=== PATIENT | female | born 1955 | race Caucasian/White ===

== ENCOUNTER 2017-06-06 08:57 | Day surgery (SDC) | payer OTHER ==
[~2017-06-06] VITALS: Ht 167.6 cm; Wt 108.6 kg
[~2017-06-06 08:57] MED LIST: /LOR25TA PO; /QUET10TA PO; ATIV0.5T3 PO; AZIT500T2 PO; BUPR1TAB53 PO; BUSP10TA78 PO; CARD300C4 PO; CITA10TA2 PO; CLON0.2T PO; CRES5TAB PO; DESIOIN3 TOP; DIPH50CA PO; DIPHCR TOP; FURO40TA2 PO; IBUP200T2 PO; LASI20TA PO; LEVO250T PO; LIDOCAINE 2% INJ 100 MG/5 ML SDV (FOR ANES.) As Ordered ONE; LISI2.5T3 PO; LISINOPRIL/HCTZ PO; LIVA2TAB PO; METF-415 PO; METF-700 PO; METF500T PO; MOBI15TA PO; MOME0.1C3; PANT40TA2 PO; PRED10TA PO; PROPOFOL 200 MG/20 ML VIAL As Ordered ONE; TOUJ1.2I SC; TRIAMCINOLONE TOP; TRUL10IN SC; VALT1TAB PO; VENL75TA2 PO; VENTAER INH
[2017-06-06] MEDS ORDERED: NS 1,000 ML IV SCH (10:00)
--- NOTE | 2017-06-06 10:34 | ROOR ---
Patient Name: Vika Aranda Procedure Date: 06/06/2017 10:00 AM Date of : 1955 Age: 61 Room: [facility] Gender: Female Note Status: Finalized Procedure: Colonoscopy Indications: High risk colon cancer surveillance: Personal history of colonic polyps, Last colonoscopy: April 2014 Providers: Serjio MORRISON MD Referring MD: KALIN ZULUAGA Requesting Provider: Medicines: Monitored Anesthesia Care Complications: No immediate complications. Procedure: Pre-Anesthesia Assessment: - The heart rate, respiratory rate, oxygen saturations, blood pressure, adequacy of pulmonary ventilation, and response to care were monitored throughout the procedure. The Colonoscope was introduced through the anus and advanced to the cecum, identified by appendiceal orifice and ileocecal valve. The colonoscopy was performed with difficulty due to inadequate bowel prep. Successful completion of the procedure was aided by changing the patient to a supine position and lavage. The patient tolerated the procedure well. Findings: The perianal and digital rectal examinations were normal. (Colon Prep was POOR, Inadequate Visualisation) Multiple medium-mouthed diverticula were found in the sigmoid colon. Impression: - (Colon Prep was POOR, Inadequate Visualisation) - Moderate diverticulosis in the sigmoid colon. - No specimens collected. Recommendation: - Repeat colonoscopy at the next available appointment because the bowel preparation was poor. - My office will call you to reschedule the procedure. Serjio Morrison MD Serjio MORRISON MD 06/06/2017 10:34:05 AM This report has been signed electronically. Number of Addenda: 0 Note Initiated On: 06/06/2017 10:00 AM Estimated Blood Loss: Estimated blood loss: none.
[2017-06-06 10:51] VITALS: BP 98/58
== END 2017-06-06 11:05 | disposition home or self-care (01) ==
LOC: M OPP 08:57 → EDSTATUS 09:55 → M OPP 11:05
PROVIDERS: ATTEND Internal Medicine Gastroenterology
DX: Z12.11 Encounter for screening for malignant neoplasm of colon (principal); Z86.010 Personal history of colon polyps; K57.30 Diverticulosis of large intestine without perforation or abscess without bleeding; I10 Essential (primary) hypertension; E78.5 Hyperlipidemia, unspecified; E11.9 Type 2 diabetes mellitus without complications; R12 Heartburn; M19.90 Unspecified osteoarthritis, unspecified site; M51.9 Unspecified thoracic, thoracolumbar and lumbosacral intervertebral disc disorder; E07.9 Disorder of thyroid, unspecified; L40.9 Psoriasis, unspecified; F32.9 Major depressive disorder, single episode, unspecified; F41.9 Anxiety disorder, unspecified; G43.909 Migraine, unspecified, not intractable, without status migrainosus; G62.9 Polyneuropathy, unspecified; G47.30 Sleep apnea, unspecified; Z88.8 Allergy status to other drugs, medicaments and biological substances; Z88.5 Allergy status to narcotic agent; Z79.899 Other long term (current) drug therapy; Z80.7 Family history of other malignant neoplasms of lymphoid, hematopoietic and related tissues

== ENCOUNTER 2017-09-16 07:00 | Day surgery (SDC) | payer OTHER ==
[2017-09-16] MEDS: NS 1,000 ML IV (07:44)
[2017-09-16] MEDS ORDERED: DEXTROSE 50% 50 ML SYRINGE As Ordered (10:14)
[2017-09-16] MEDS ORDERED: PROPOFOL 200 MG/20 ML VIAL As Ordered (10:50)
[2017-09-16] MEDS ORDERED: LIDOCAINE 2% INJ 100 MG/5 ML SDV (FOR ANES.) As Ordered (10:50)
[2017-09-16] MEDS ORDERED: DEXTROSE IV (11:31)
== END 2017-09-16 11:41 | disposition home or self-care (01) ==
LOC: M OPP 07:00
DX: Z12.11 Encounter for screening for malignant neoplasm of colon (principal); Z86.010 Personal history of colon polyps; I10 Essential (primary) hypertension; E78.5 Hyperlipidemia, unspecified; E11.9 Type 2 diabetes mellitus without complications; E04.1 Nontoxic single thyroid nodule; Z86.718 Personal history of other venous thrombosis and embolism; R06.02 Shortness of breath; M19.90 Unspecified osteoarthritis, unspecified site; M51.9 Unspecified thoracic, thoracolumbar and lumbosacral intervertebral disc disorder; L40.9 Psoriasis, unspecified; Z78.0 Asymptomatic menopausal state; G47.30 Sleep apnea, unspecified; Z87.442 Personal history of urinary calculi; Z87.891 Personal history of nicotine dependence; Z88.8 Allergy status to other drugs, medicaments and biological substances; Z88.5 Allergy status to narcotic agent; Z79.899 Other long term (current) drug therapy; Z80.7 Family history of other malignant neoplasms of lymphoid, hematopoietic and related tissues
CPT/HCPCS: 45378

== ENCOUNTER 2017-10-03 08:39 | Day surgery (SDC) | payer OTHER ==
[~2017-10-03 08:39] MED LIST changes: -/LOR25TA PO; -/QUET10TA PO; -ATIV0.5T3 PO; -AZIT500T2 PO; -BUPR1TAB53 PO; -BUSP10TA78 PO; -CARD300C4 PO; -CITA10TA2 PO; -CLON0.2T PO; -CRES5TAB PO; -DESIOIN3 TOP; -DIPH50CA PO; -DIPHCR TOP; -FURO40TA2 PO; -IBUP200T2 PO; -LASI20TA PO; -LEVO250T PO; -LIDOCAINE 2% INJ 100 MG/5 ML SDV (FOR ANES.) As Ordered ONE; -LISI2.5T3 PO; -LISINOPRIL/HCTZ PO; -LIVA2TAB PO; -METF-415 PO; -METF-700 PO; -METF500T PO; -MOBI15TA PO; -MOME0.1C3; -PANT40TA2 PO; -PRED10TA PO; +PROPOFOL 200 MG/20 ML VIAL As Ordered; -PROPOFOL 200 MG/20 ML VIAL As Ordered ONE; -TOUJ1.2I SC; -TRIAMCINOLONE TOP; -TRUL10IN SC; -VALT1TAB PO; -VENL75TA2 PO; -VENTAER INH
[2017-10-03] MEDS: NS 1,000 ML IV (09:00)
[2017-10-03] MEDS ORDERED: LIDOCAINE 2% INJ 100 MG/5 ML SDV (FOR ANES.) As Ordered (10:01)
== END 2017-10-03 10:39 | disposition home or self-care (01) ==
LOC: M OPP 08:39
DX: Z12.11 Encounter for screening for malignant neoplasm of colon (principal); Z86.010 Personal history of colon polyps; D12.5 Benign neoplasm of sigmoid colon; D12.3 Benign neoplasm of transverse colon; K57.30 Diverticulosis of large intestine without perforation or abscess without bleeding; K64.8 Other hemorrhoids; I10 Essential (primary) hypertension; E78.5 Hyperlipidemia, unspecified; E11.9 Type 2 diabetes mellitus without complications; E04.1 Nontoxic single thyroid nodule; K44.9 Diaphragmatic hernia without obstruction or gangrene; R12 Heartburn; K21.9 Gastro-esophageal reflux disease without esophagitis; Z86.718 Personal history of other venous thrombosis and embolism; R06.02 Shortness of breath; Z86.19 Personal history of other infectious and parasitic diseases; M19.90 Unspecified osteoarthritis, unspecified site; M51.9 Unspecified thoracic, thoracolumbar and lumbosacral intervertebral disc disorder; L40.9 Psoriasis, unspecified; F41.9 Anxiety disorder, unspecified; F32.9 Major depressive disorder, single episode, unspecified; G43.909 Migraine, unspecified, not intractable, without status migrainosus; G62.9 Polyneuropathy, unspecified; Z86.69 Personal history of other diseases of the nervous system and sense organs; Z78.0 Asymptomatic menopausal state; G47.30 Sleep apnea, unspecified; Z87.442 Personal history of urinary calculi; E66.9 Obesity, unspecified; Z87.891 Personal history of nicotine dependence; Z88.8 Allergy status to other drugs, medicaments and biological substances; Z88.5 Allergy status to narcotic agent; Z79.899 Other long term (current) drug therapy; Z79.4 Long term (current) use of insulin; Z80.7 Family history of other malignant neoplasms of lymphoid, hematopoietic and related tissues
CPT/HCPCS: 45385

== ENCOUNTER → 2019-02-26 | Outpatient (CLI) | payer OTHER ==
[~2019-02-26] MED LIST changes: +/LOR25TA PO; +ADME100I SC; +ASPI81TAEC PO; +ATIV0.5T3 PO; +AZIT500T2 PO; +BUPR150T3 PO; +BUPR1TAB53 PO; +BUSP10TA78 PO; +CARD300C4 PO; +CITA10TA2 PO; +CLON0.2T PO; +CRES5TAB PO; +DESIOIN3 TOP; +DIPH25CA PO; +DIPH50CA PO; +DIPHCR TOP; +FLAG500T PO; +FURO40TA2 PO; +HYDR-3716 PO; +IBUP200T2 PO; +LASI20TA3 PO; +LEVO250T PO; +LISI-1046 PO; +LISI10TA4 PO; +LISINOPRIL/HCTZ PO; +LIVA2TAB PO; +LORA0.5T11 PO; +METF-415 PO; +METF-700 PO; +METF500T PO; +MOBI15TA PO; +MOME0.1C3; +PANT20TA2 PO; +PANT40TA3 PO; +PRED-351 PO; -PROPOFOL 200 MG/20 ML VIAL As Ordered; +SERO1TAB PO; +TOUJ1.2I SC; +TRIAMCINOLONE TOP; +TRUL10IN SC; +VALT1TAB PO; +VANC1CAP6 PO; +VENL75CA47 PO; +VENL75TA2 PO; +VENTAER INH; +VICT18IN SC; +VITA50005 PO
--- NOTE | 2019-02-27 07:24 | REP ---
Sacrum and coccyx series: Four views. History: Low back pain. Comparison views are from March 29, 2013. Findings: The SI joints and symphysis pubis are unremarkable. Sacrum is intact. There is no evidence of coccygeal deformity or displacement compared to the prior study. Presacral and retro sacral soft tissues are unremarkable. Impression: Negative views of the sacrum and coccyx. Electronically Signed by Tim Verdin MD 02/27/2019 11:58 A
== END ==
LOC: M RAD 15:31
PROVIDERS: ATTEND Physician Assistant
DX: M54.5 Low back pain (principal)

== ENCOUNTER → 2021-02-03 | Outpatient (CLI) | payer MEDICARE, OTHER ==
[~2021-02-03] MED LIST changes: +ASPI-569 PO; -ASPI81TAEC PO; -AZIT500T2 PO; +AZIT500T5 PO; +BASA100I SC; +BUPR150T12 PO; -BUPR150T3 PO; -DIPH25CA PO; +DIPH25CA32 PO; +FISH1000 PO; -LISI-1046 PO; +LISI10TA22 PO; -LISI10TA4 PO; +LISI2.5T2 PO; -LORA0.5T11 PO; +LORA0.5T5 PO; -METF-700 PO; +METF-818 PO; +MULT-90 PO; +OCUV1CHW PO; -PANT20TA2 PO; +PANT20TA6 PO; +PANT40TA29 PO; -PANT40TA3 PO; +TRUL10IN
== END ==
LOC: M LABSMTC 10:29
PROVIDERS: ATTEND Anesthesiology
DX: Z01.818 Encounter for other preprocedural examination (principal); Z11.52 Encounter for screening for COVID-19

== ENCOUNTER 2021-02-08 13:19 | Day surgery (SDC) | payer MEDICARE, OTHER ==
[~2021-02-08] VITALS: Ht 167.6 cm; Wt 246.3 kg
[~2021-02-08 13:19] MED LIST changes: +NS 1,000 ML IV ONE
[2021-02-08] MEDS ORDERED: D5W 500 ML IV ONE (16:15)
[2021-02-08] MEDS ORDERED: propofoL 200 MG/20 ML VIAL As Ordered ONE (16:16)
[2021-02-08] MEDS ORDERED: LIDOCAINE 2% 100MG/5ML SDV (FOR ANES.) As Ordered ONE (16:16)
--- NOTE | 2021-02-08 16:17 | ROOR ---
Patient Name: Vika Aranda Procedure Date: 02/08/2021 3:46 PM Date of : 1955 Age: 65 Room: [facility] Gender: Female Note Status: Finalized Procedure: Colonoscopy Indications: High risk colon cancer surveillance: Personal history of colonic polyps, (history of suboptimal colon prep) Providers: Serjio Morrison MD Referring MD: KALIN ZULUAGA Requesting Provider: Medicines: Monitored Anesthesia Care Complications: No immediate complications. Procedure: Pre-Anesthesia Assessment: - The heart rate, respiratory rate, oxygen saturations, blood pressure, adequacy of pulmonary ventilation, and response to care were monitored throughout the procedure. The Colonoscope was introduced through the anus and advanced to the terminal ileum, with identification of the appendiceal orifice and IC valve. The colonoscopy was performed without difficulty. The patient tolerated the procedure well. The quality of the bowel preparation was good. Findings: The perianal and digital rectal examinations were normal. A 4 mm polyp was found in the ascending colon. The polyp was sessile. The polyp was removed with a cold snare. Resection and retrieval were complete. Mild sigmoid diverticulosis and small internal hemorrhoids. The exam was otherwise without abnormality on direct and retroflexion views. Impression: - One 4 mm polyp in the ascending colon, removed with a cold snare. Resected and retrieved. - Mild sigmoid diverticulosis and small internal hemorrhoids. - The examination was otherwise normal on direct and retroflexion views. Recommendation: - Repeat colonoscopy in 5 years for surveillance. Procedure Code(s): --- Professional --- 87074, Colonoscopy, flexible; with removal of tumor(s), polyp(s), or other lesion(s) by snare technique Diagnosis Code(s): --- Professional --- K63.5, Polyp of colon Z86.010, Personal history of colonic polyps CPT copyright 2019 [employer]. All rights reserved. The codes documented in this report are preliminary and upon web application dev specialist review may be revised to meet current compliance requirements. Serjio Morrison MD Serjio Morrison MD 02/08/2021 4:17:25 PM Electronically signed by Serjio Morrison MD Number of Addenda: 0 Note Initiated On: 02/08/2021 3:46 PM Estimated Blood Loss: Estimated blood loss: none.
[2021-02-08 16:45] VITALS: BP 140/71
== END 2021-02-08 16:50 | disposition home or self-care (01) ==
LOC: M OPP 13:19
PROVIDERS: ATTEND Internal Medicine Gastroenterology
DX: Z12.11 Encounter for screening for malignant neoplasm of colon (principal); Z86.010 Personal history of colon polyps; D12.2 Benign neoplasm of ascending colon; K57.30 Diverticulosis of large intestine without perforation or abscess without bleeding; K64.8 Other hemorrhoids; Z79.82 Long term (current) use of aspirin; Z79.899 Other long term (current) drug therapy; Z88.5 Allergy status to narcotic agent; Z88.8 Allergy status to other drugs, medicaments and biological substances; Z86.718 Personal history of other venous thrombosis and embolism; Z87.891 Personal history of nicotine dependence

== ENCOUNTER 2021-02-12 11:14 | Emergency (ER) | payer MEDICAID, OTHER ==
[~2021-02-12] VITALS: Ht 167.6 cm; Wt 111.2 kg
[~2021-02-12 11:14] MED LIST changes: -NS 1,000 ML IV ONE
--- NOTE | 2021-02-12 12:10 | REP ---
INDICATION: CHEST PAIN COMPARISON: 01/23/2014 TECHNIQUE: Portable AP view of the chest FINDINGS: The mediastinum and cardiac silhouette are stable and within normal limits for portable technique. The lung parmar are clear without acute consolidation, effusion, or pneumothorax. Skeletal structures are intact. IMPRESSION: No acute cardiopulmonary process appreciated. <Electronically signed by Cuauhtemoc Blas > 02/12/21 1154
[2021-02-12 12:25] LABS: BASO % 0.5 % (0.0-1.0); EOS # 0.2 10^3/uL (0.0-0.5); EOS % 4.1 % (0.0-3.0); HEMATOCRIT 38.7 % (36.0-47.0); HEMOGLOBIN 12.3 g/dl (12.0-15.5); LYMPH # 1.3 10^3/uL (1.5-5.0); LYMPH % 24.1 % (24.0-44.0); MEAN CORPUSCULAR HGB CONC 31.8 g/dl (32.0-36.5); MONO # 0.4 10^3/uL (0.0-0.8); MONO % 7.2 % (2.0-8.0); NEUTROPHILS # 3.5 10^3/uL (1.5-8.5); NEUTROPHILS % 63.6 % (36.0-66.0); PLATELET COUNT, AUTOMATED 235 10^3/uL (150-450); WHITE BLOOD COUNT 5.6 10^3/uL (4.0-10.0)
[2021-02-12 13:12] LABS: ALBUMIN 3.5 GM/DL (3.2-5.2); BILIRUBIN,DIRECT 0.1 MG/DL (0.0-0.2); BILIRUBIN,TOTAL 0.4 MG/DL (0.2-1.0); THYROID STIMULATING HORMONE 0.612 uIU/ML (0.358-3.740); TOTAL PROTEIN 7.1 GM/DL (6.4-8.2)
[2021-02-12] MEDS ORDERED: ASPIRIN 81 MG CHEW TABLET PO ONE (13:20)
[2021-02-12 18:57] VITALS: BP 163/77
--- NOTE | 2021-02-12 22:35 | ECGEPIP ---
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
--- NOTE | 2021-02-12 22:50 | ECGEPIP ---
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
== END 2021-02-12 18:59 | disposition home or self-care (01) ==
LOC: M ED 11:14
DX: R07.89 Other chest pain (principal); I10 Essential (primary) hypertension; R51.9 Headache, unspecified; E11.9 Type 2 diabetes mellitus without complications; K21.9 Gastro-esophageal reflux disease without esophagitis; R60.0 Localized edema; F17.200 Nicotine dependence, unspecified, uncomplicated; Z88.8 Allergy status to other drugs, medicaments and biological substances; Z88.5 Allergy status to narcotic agent; Z79.899 Other long term (current) drug therapy; Z79.82 Long term (current) use of aspirin; Z79.4 Long term (current) use of insulin

== ENCOUNTER 2021-05-29 12:33 | Emergency (ER) | payer MEDICARE, OTHER ==
[~2021-05-29] VITALS: Ht 167.6 cm; Wt 113.9 kg
[2021-05-29 12:33] VITALS: BP 181/81
[~2021-05-29 12:33] MED LIST changes: -LISI2.5T2 PO; +LISI2.5T9 PO
== END 2021-05-29 14:14 | disposition left against medical advice (07) ==
LOC: M ED 12:33
DX: Z53.21 Procedure and treatment not carried out due to patient leaving prior to being seen by health care provider (principal)

== ENCOUNTER → 2021-06-25 | Outpatient (CLI) | payer MEDICARE ==
--- NOTE | 2021-06-25 10:23 | REP ---
INDICATION: ABD PAIN. COMPARISON: None. TECHNIQUE: Transabdominal ultrasound FINDINGS: Multiple ultrasonographic images of the liver show the hepatic parenchymal echo pattern to be diffusely increased. There is no intrahepatic or extrahepatic ductal dilatation. The common bile duct measures 7 mm. The imaged portion of the pancreas is within normal limits. The spleen measures 13.1 x 13.4 x4.7 cm. The splenic volumetric index calculation is 825. This is above the upper limit of normal. No perisplenic abnormalities are noted. The right kidney measures 12.2 x 6.1 x 5.4 cm. The renal cortical echotexture is within normal limits. Corticomedullary differentiation is preserved. There is no hydronephrosis. There are no masses. The left kidney measures 12.4 x 4.7 x 4.7 cm. The renal cortical echotexture is within normal limits. Corticomedullary differentiation is preserved. There is no hydronephrosis. There are no masses. The imaged portion of the abdominal aorta is within normal limits. There is no evidence of free fluid. IMPRESSION: 1. Splenomegaly 2. Fatty infiltration of the liver. 3. Status post cholecystectomy <Electronically signed by Flash Juares > 06/25/21 [id number]
== END ==
LOC: M RAD 07:17
PROVIDERS: ATTEND Physician Assistant
DX: R16.1 Splenomegaly, not elsewhere classified (principal); K76.0 Fatty (change of) liver, not elsewhere classified

== ENCOUNTER → 2021-08-09 | Outpatient (CLI) | payer MEDICARE | LOC: M WHC 09:13 | PROVIDERS: ATTEND Physician Assistant | DX: Z12.31 Encounter for screening mammogram for malignant neoplasm of breast (principal); Z80.3 Family history of malignant neoplasm of breast; R92.1 Mammographic calcification found on diagnostic imaging of breast ==

== ENCOUNTER → 2021-09-05 | Outpatient (CLI) | payer MEDICARE ==
[2021-09-05 15:43] LABS: BASO % 0.7 % (0.0-1.0); EOS # 0.3 10^3/uL (0.0-0.5); EOS % 5.7 % (0.0-3.0); HEMATOCRIT 38.7 % (36.0-47.0); HEMOGLOBIN 12.3 g/dl (12.0-15.5); LYMPH # 1.4 10^3/uL (1.5-5.0); LYMPH % 25.5 % (24.0-44.0); MEAN CORPUSCULAR HEMOGLOBIN 28.1 pg (27.0-33.0); MEAN CORPUSCULAR HGB CONC 31.8 g/dl (32.0-36.5); MEAN CORPUSCULAR VOLUME 88.6 fl (80.0-96.0); MONO # 0.4 10^3/uL (0.0-0.8); MONO % 7.9 % (2.0-8.0); NEUTROPHILS # 3.3 10^3/uL (1.5-8.5); NEUTROPHILS % 59.6 % (36.0-66.0); PLATELET COUNT, AUTOMATED 238 10^3/uL (150-450); RED BLOOD COUNT 4.37 10^6/uL (4.00-5.40); WHITE BLOOD COUNT 5.5 10^3/uL (4.0-10.0)
[2021-09-05 16:09] LABS: CALCIUM LEVEL 9.8 MG/DL (8.8-10.2); CREATININE FOR GFR 1.15 MG/DL (0.55-1.30); GLOMERULAR FILTRATION RATE 50.3 (>45); POTASSIUM SERUM 4.6 MEQ/L (3.5-5.1)
== END ==
LOC: M RAD 14:17
PROVIDERS: ATTEND Physician Assistant
DX: J18.9 Pneumonia, unspecified organism (principal)

== ENCOUNTER → 2021-11-16 | Outpatient (CLI) | payer MEDICARE, OTHER | LOC: M RAD 09:02 | PROVIDERS: ATTEND Physician Assistant Medical | DX: R93.3 Abnormal findings on diagnostic imaging of other parts of digestive tract (principal); R16.2 Hepatomegaly with splenomegaly, not elsewhere classified ==

== ENCOUNTER 2022-01-27 16:48 | Observation (INO) | payer MEDICARE, MEDICAID ==
[~2022-01-27] VITALS: Ht 167.6 cm; Wt 115.6 kg
[2022-01-27 21:26] LABS: VENOUS BASE EXCESS -1.4 (-2.0-2.0); VENOUS HCO3 24.7 MEQ/L (23.0-27.0); VENOUS O2 SATURATION 63.8 % (60.0-80.0); VENOUS PARTIAL PRESSURE CO2 47.3 mmHg (38.0-50.0); VENOUS PH 7.336 UNITS (7.330-7.430); VENOUS STANDARD HCO3 22.6 MEQ/L; VENOUS TOTAL CO2 26.2 MEQ/L (24.0-28.0)
[2022-01-27 21:30] LABS: BASO % 0.5 % (0.0-1.0); EOS # 0.3 10^3/uL (0.0-0.5); EOS % 4.1 % (0.0-3.0); HEMATOCRIT 35.7 % (36.0-47.0); HEMOGLOBIN 11.5 g/dl (12.0-15.5); LYMPH # 1.4 10^3/uL (1.5-5.0); LYMPH % 20.6 % (24.0-44.0); MEAN CORPUSCULAR HEMOGLOBIN 28.6 pg (27.0-33.0); MEAN CORPUSCULAR HGB CONC 32.2 g/dl (32.0-36.5); MEAN CORPUSCULAR VOLUME 88.8 fl (80.0-96.0); MONO # 0.6 10^3/uL (0.0-0.8); MONO % 9.6 % (2.0-8.0); NEUTROPHILS # 4.3 10^3/uL (1.5-8.5); NEUTROPHILS % 64.7 % (36.0-66.0); PLATELET COUNT, AUTOMATED 233 10^3/uL (150-450); RED BLOOD COUNT 4.02 10^6/uL (4.00-5.40); WHITE BLOOD COUNT 6.6 10^3/uL (4.0-10.0)
[2022-01-27 21:56] LABS: ALBUMIN 3.2 GM/DL (3.2-5.2); BILIRUBIN,DIRECT 0.2 MG/DL (0.0-0.2); BILIRUBIN,TOTAL 0.5 MG/DL (0.2-1.0); CALCIUM LEVEL 8.9 MG/DL (8.8-10.2); GLOMERULAR FILTRATION RATE 59.1 (>45); POTASSIUM SERUM 4.2 MEQ/L (3.5-5.1); TOTAL PROTEIN 6.5 GM/DL (6.4-8.2)
[2022-01-27 21:58] LABS: CK-MB VALUE MASS 1.6 NG/ML (<3.6); MB/CK RELATIVE INDEX 2.08 (< OR =4)
[2022-01-27 22:49] LABS: MB/CK RELATIVE INDEX 2.6 (< OR =4)
[2022-01-27 22:54] LABS: INR 0.91; PROTHROMBIN TIME 12.7 SECONDS (12.7-14.5)
[2022-01-27 22:57] LABS: D-DIMER QUANT 1063.1 ng/ml (<500)
[2022-01-27] MEDS ORDERED: ISOVUE-370 76% 100ML VIAL As Ordered ONE (23:17)
[2022-01-27 23:21] LABS: RSV AMPLIFICATION NEGATIVE (NEGATIVE)
[2022-01-27 23:57] LABS: CK-MB VALUE MASS 1.6 NG/ML (<3.6); MB/CK RELATIVE INDEX 0.87 (< OR =4)
[2022-01-28] VITALS (9 sets, daily range): BP systolic 134–180; BP diastolic 70–106
[2022-01-28] MEDS ORDERED: ASPI81TA26 PO
[2022-01-28] MEDS ORDERED: LISI20TA33 PO
[2022-01-28] MEDS ORDERED: TRES1INJ2 INJ
[2022-01-28] MEDS ORDERED: HOME MED LIST COMPLETE! XX SCH
[2022-01-28] MEDS ORDERED: ALBUTEROL 90 MCG/ACT 8GM HFA INHALER INH PRN (00:20)
[2022-01-28] MEDS ORDERED: GLUCOSE 4GM CHEW TABLET PO PRN (00:20)
[2022-01-28] MEDS ORDERED: GLUCAGON INJ 1MG VIAL SC PRN (00:20)
[2022-01-28] MEDS ORDERED: diphenhydrAMINE 25MG CAP PO PRN (00:20)
[2022-01-28] MEDS ORDERED: DEXTROSE 50% 50 ML SYRINGE IV PRN (00:20)
[2022-01-28 06:37] LABS: HEMATOCRIT 36.8 % (36.0-47.0); HEMOGLOBIN 12.1 g/dl (12.0-15.5); MEAN CORPUSCULAR HEMOGLOBIN 29.2 pg (27.0-33.0); MEAN CORPUSCULAR HGB CONC 32.9 g/dl (32.0-36.5); MEAN CORPUSCULAR VOLUME 88.9 fl (80.0-96.0); PLATELET COUNT, AUTOMATED 234 10^3/uL (150-450); RED BLOOD COUNT 4.14 10^6/uL (4.00-5.40); WHITE BLOOD COUNT 6.5 10^3/uL (4.0-10.0)
[2022-01-28 06:43] LABS: BASO # 0.1 10^3/uL (0.0-0.2); BASO % 0.7 % (0.0-1.0); EOS # 0.4 10^3/uL (0.0-0.5); EOS % 5.5 % (0.0-3.0); LYMPH # 1.8 10^3/uL (1.5-5.0); LYMPH % 25.9 % (24.0-44.0); MONO # 0.7 10^3/uL (0.0-0.8); MONO % 10.5 % (2.0-8.0); NEUTROPHILS # 3.8 10^3/uL (1.5-8.5); NEUTROPHILS % 56.8 % (36.0-66.0)
[2022-01-28 06:46] LABS: INR 0.9; PROTHROMBIN TIME 12.6 SECONDS (12.7-14.5)
[2022-01-28 06:47] LABS: PARTIAL THROMBOPLASTIN TIME 24.9 SECONDS (25.9-37.0)
[2022-01-28] MEDS ORDERED: ASPIRIN 81 MG CHEW TABLET PO ONE (07:00)
[2022-01-28 07:09] LABS: ALBUMIN 3.4 GM/DL (3.2-5.2); ALT/SGPT 22 U/L (12-78); BILIRUBIN,DIRECT 0.3 MG/DL (0.0-0.2); BILIRUBIN,TOTAL 0.8 MG/DL (0.2-1.0); BLOOD UREA NITROGEN 24 MG/DL (7-18); CALCIUM LEVEL 8.9 MG/DL (8.8-10.2); CARBON DIOXIDE LEVEL 27 MEQ/L (21-32); CHLORIDE LEVEL 106 MEQ/L (98-107); CHOLESTEROL LEVEL 227 MG/DL (<200); CHOLESTEROL RISK RATIO 5.675 (<5); CREATININE FOR GFR 1.11 MG/DL (0.55-1.30); GLOMERULAR FILTRATION RATE 52.4 (>45); GLUCOSE, FASTING 146 MG/DL (70-100); HDL CHOLESTEROL 40 MG/DL (>40); LDL CHOLESTEROL 137 MG/DL (<100); MAGNESIUM LEVEL 1.7 MG/DL (1.8-2.4); NON-HDL-C 187 MG/DL; POTASSIUM SERUM 3.9 MEQ/L (3.5-5.1); SODIUM LEVEL 139 MEQ/L (136-145); TOTAL PROTEIN 6.7 GM/DL (6.4-8.2); TRIGLYCERIDES LEVEL 251 MG/DL (<150)
[2022-01-28 07:11] LABS: CK-MB VALUE MASS 1.8 NG/ML (<3.6); MB/CK RELATIVE INDEX 2.25 (< OR =4)
[2022-01-28] MEDS: INSULIN LISPRO (NovoLOG) PER UNIT SC SCH ×3 (07:30→17:05)
[2022-01-28] MEDS ORDERED: MAG SULF 1GM/100ML (MAG RUN) 1 GM in IV 1 EA IV ONE (07:35)
[2022-01-28] MEDS ORDERED: ACETAMINOPHEN TAB 650MG DOSE (2X325MG) PO PRN (08:15)
[2022-01-28] MEDS ORDERED: MORPHINE 2 MG/ML 1ML VIAL IV ONE (08:15)
[2022-01-28] MEDS ORDERED: hydrALAZINE 20MG/ML 1ML VIAL (J0360 PER 20MG) IV ONE ×2 (08:50→20:00)
[2022-01-28] MEDS ORDERED: ENOXAPARIN 40MG/0.4ML SYRINGE (J1650 PER 10MG) SC SCH (09:00)
[2022-01-28] MEDS ORDERED: ASPIRIN 81MG ENTERIC TABLET PO SCH (09:00)
[2022-01-28] MEDS ORDERED: CEPHALEXIN 500 MG CAP PO SCH (09:00)
[2022-01-28 09:11] LABS: C REACTIVE PROTEIN QUANTITATIV < 0.30 MG/DL (0.00-0.30)
[2022-01-28] MEDS ORDERED: LORazepam 2 MG/ML VIAL IV STA (09:21)
[2022-01-28 09:26] LABS: ERYTHROCYTE SEDIMENTATION RATE 41 mm/hr (0-30)
[2022-01-28] MEDS ORDERED: HALOPERIDOL 5MG/ML VIAL (J1630 PER 1) IM ONE (09:45)
[2022-01-28] MEDS: LEVEMIR (INSULIN DETEMIR) 1 UNITS/0.01ML SC SCH (11:08)
[2022-01-28 11:36] LABS: CK-MB VALUE MASS 1.6 NG/ML (<3.6); MB/CK RELATIVE INDEX 1.98 (< OR =4)
[2022-01-28] MEDS ORDERED: NS 500 ML IV ONE (13:40)
[2022-01-28] MEDS ORDERED: ACETAMINOPHEN 650 MG SUPP PR ONE (14:00)
[2022-01-28] MEDS: ceFAZolin SOD 1 GM in D5W MINI-BAG PLUS 50 ML IV SCH (16:02)
[2022-01-28] MEDS ORDERED: ATORVASTATIN 20 MG TAB PO SCH (21:00)
[2022-01-28] MEDS ORDERED: PANTOPRAZOLE 40MG TAB (PROTONIX) PO SCH (21:00)
[2022-01-28] MEDS ORDERED: INSULIN LISPRO (NovoLOG) PER UNIT SC SCH (21:00)
[2022-01-28] MEDS ORDERED: LABETALOL 100MG/20ML VIAL IV STA (21:18)
[2022-01-28] MEDS ORDERED: KETOROLAC 30 MG/ML 1ML VIAL IV ONE (21:20)
[2022-01-29] VITALS: BP 128/60
[2022-01-29] MEDS: ceFAZolin SOD 1 GM in D5W MINI-BAG PLUS 50 ML IV SCH ×3 (00:30→09:31)
[2022-01-29 04:00] VITALS: BP 171/83
[2022-01-29 05:21] LABS: BASO % 0.4 % (0.0-1.0); EOS # 0.3 10^3/uL (0.0-0.5); EOS % 4.1 % (0.0-3.0); HEMATOCRIT 34.3 % (36.0-47.0); HEMOGLOBIN 11.2 g/dl (12.0-15.5); LYMPH # 1.6 10^3/uL (1.5-5.0); LYMPH % 23.9 % (24.0-44.0); MEAN CORPUSCULAR HEMOGLOBIN 28.6 pg (27.0-33.0); MEAN CORPUSCULAR HGB CONC 32.7 g/dl (32.0-36.5); MEAN CORPUSCULAR VOLUME 87.7 fl (80.0-96.0); MONO % 14.3 % (2.0-8.0); NEUTROPHILS # 3.9 10^3/uL (1.5-8.5); NEUTROPHILS % 56.9 % (36.0-66.0); PLATELET COUNT, AUTOMATED 220 10^3/uL (150-450); RED BLOOD COUNT 3.91 10^6/uL (4.00-5.40); WHITE BLOOD COUNT 6.9 10^3/uL (4.0-10.0)
[2022-01-29 05:35] VITALS: BP 128/74
[2022-01-29 05:45] LABS: CALCIUM LEVEL 8.1 MG/DL (8.8-10.2); CREATININE FOR GFR 1.33 MG/DL (0.55-1.30); GLOMERULAR FILTRATION RATE 42.5 (>45); POTASSIUM SERUM 3.5 MEQ/L (3.5-5.1)
[2022-01-29] MEDS ORDERED: **hydrALAZINE** 50 MG TAB PO PRN (06:00)
[2022-01-29 07:21] VITALS: BP 147/72
[2022-01-29 08:10] LABS: MAGNESIUM LEVEL 1.9 MG/DL (1.8-2.4)
[2022-01-29] MEDS ORDERED: ASPIRIN 81MG ENTERIC TABLET PO SCH (09:00)
[2022-01-29] MEDS: INSULIN LISPRO (NovoLOG) PER UNIT SC SCH ×2 (09:32→12:32)
[2022-01-29] MEDS: LEVEMIR (INSULIN DETEMIR) 1 UNITS/0.01ML SC SCH (09:32)
[2022-01-29 09:33] VITALS: BP 147/72
[2022-01-29] MEDS ORDERED: ASPI-1 PO (09:42)
[2022-01-29] MEDS ORDERED: CEPH500C PO (09:47)
[2022-01-29] MEDS ORDERED: AMLO1TAB24 PO (09:48)
[2022-01-29] MEDS ORDERED: ROSUVASTATIN 10 MG TAB (CRESTOR) PO SCH (21:00)
[2022-01-29] MEDS ORDERED: SIMVASTATIN 40 MG TAB PO SCH (21:00)
[2022-01-29] MEDS ORDERED: INSULIN LISPRO (NovoLOG) PER UNIT SC SCH (21:00)
== END 2022-01-29 13:20 | disposition home or self-care (01) ==
LOC: M ED 16:48 → M ED INP 16:49 → ENRESERV 01-28 06:52 → M PCU 01-28 10:30
PROVIDERS: ADMIT Internal Medicine; ATTEND Internal Medicine
DX: R60.0 Localized edema (principal); R20.2 Paresthesia of skin; R47.81 Slurred speech; R74.8 Abnormal levels of other serum enzymes; R29.703 NIHSS score 3; R51.9 Headache, unspecified; R94.31 Abnormal electrocardiogram [ECG] [EKG]; I10 Essential (primary) hypertension; E78.5 Hyperlipidemia, unspecified; K21.9 Gastro-esophageal reflux disease without esophagitis; E11.40 Type 2 diabetes mellitus with diabetic neuropathy, unspecified; J45.909 Unspecified asthma, uncomplicated; R33.9 Retention of urine, unspecified; I66.23 Occlusion and stenosis of bilateral posterior cerebral arteries; I66.01 Occlusion and stenosis of right middle cerebral artery; E04.2 Nontoxic multinodular goiter; R05.9 Cough, unspecified; Z88.5 Allergy status to narcotic agent; Z88.8 Allergy status to other drugs, medicaments and biological substances; Z79.899 Other long term (current) drug therapy; Z79.82 Long term (current) use of aspirin; Z79.84 Long term (current) use of oral hypoglycemic drugs; Z79.4 Long term (current) use of insulin; Z87.891 Personal history of nicotine dependence
CPT/HCPCS: 36415; 70450; 70544; 70551; 71045; 71275; 80048; 80061; 80076; 82550; 82553; 82803; 83735; 83880; 84484; 85025; 85027; 85379; 85610; 85652; 85730; 86140; 87631; 93005; 93041; 93306; 93971; 96365; 96366; 96367; 96372; 96375; 97162; 97165; 97530; 99285; G0378; J0360; J0690; J1630; J1815; J1885; J2060; J2270; J3475; Q9967

== ENCOUNTER → 2022-03-27 | Outpatient (CLI) | payer MEDICARE, MEDICAID ==
[~2022-03-27] MED LIST changes: +AMLO1TAB24 PO; +ASPI-1 PO; +ASPI81TA26 PO; +CEPH500C PO; +LISI20TA33 PO; +TRES1INJ2 INJ
[2022-03-27 12:51] LABS: HEMATOCRIT 35.4 % (36.0-47.0); HEMOGLOBIN 10.9 g/dl (12.0-15.5); MEAN CORPUSCULAR HEMOGLOBIN 27.7 pg (27.0-33.0); MEAN CORPUSCULAR HGB CONC 30.8 g/dl (32.0-36.5); MEAN CORPUSCULAR VOLUME 90.1 fl (80.0-96.0); PLATELET COUNT, AUTOMATED 254 10^3/uL (150-450); RED BLOOD COUNT 3.93 10^6/uL (4.00-5.40); WHITE BLOOD COUNT 6.5 10^3/uL (4.0-10.0)
[2022-03-27 14:02] LABS: ALBUMIN 3.1 GM/DL (3.2-5.2); ALT/SGPT 30 U/L (12-78); BILIRUBIN,DIRECT 0.1 MG/DL (0.0-0.2); BILIRUBIN,TOTAL 0.3 MG/DL (0.2-1.0); IRON (FE) 66 UG/DL (50-170); PERCENT SATURATION 19.5 % (13.2-45.0); TOTAL IRON BINDING CAPACITY 338 UG/DL (250-450); TOTAL PROTEIN 6.7 GM/DL (6.4-8.2)
[2022-03-27 14:45] LABS: HEPATITIS B SURFACE ANTIGEN NEGATIVE (NEGATIVE)
[2022-03-27 15:13] LABS: HEPATITIS B CORE ANTIBODY IGM NEGATIVE (NEGATIVE)
== END ==
LOC: M LAB 11:41
PROVIDERS: ATTEND Physician Assistant Medical
DX: R93.3 Abnormal findings on diagnostic imaging of other parts of digestive tract (principal); D50.9 Iron deficiency anemia, unspecified

== ENCOUNTER → 2022-04-01 | Outpatient (CLI) | payer MEDICARE, MEDICAID | LOC: M WUC 11:45 | PROVIDERS: ATTEND Physician Assistant | DX: E11.3299 Type 2 diabetes mellitus with mild nonproliferative diabetic retinopathy without macular edema, unspecified eye (principal); Z79.899 Other long term (current) drug therapy ==

== ENCOUNTER → 2022-06-13 | Outpatient (CLI) | payer MEDICARE, MEDICAID ==
[~2022-06-13] MED LIST changes: +CARV3.12; +EZET10TA21
== END ==
LOC: M RAD 09:25
PROVIDERS: ATTEND Internal Medicine Medical Oncology
DX: R16.2 Hepatomegaly with splenomegaly, not elsewhere classified (principal)

== ENCOUNTER → 2022-08-29 | Outpatient (CLI) | payer MEDICARE, MEDICAID, OTHER ==
[~2022-08-29] MED LIST changes: +DIPH-435 PO; -DIPH25CA32 PO
[2022-08-29 16:53] LABS: BASO # 0.1 10^3/uL (0.0-0.2); BASO % 0.9 % (0.0-1.0); EOS # 0.3 10^3/uL (0.0-0.5); EOS % 4.5 % (0.0-3.0); HEMATOCRIT 38.4 % (36.0-47.0); HEMOGLOBIN 11.7 g/dl (12.0-15.5); LYMPH # 1.4 10^3/uL (1.5-5.0); LYMPH % 22.1 % (24.0-44.0); MEAN CORPUSCULAR HEMOGLOBIN 28.3 pg (27.0-33.0); MEAN CORPUSCULAR HGB CONC 30.5 g/dl (32.0-36.5); MEAN CORPUSCULAR VOLUME 92.8 fl (80.0-96.0); MONO # 0.5 10^3/uL (0.0-0.8); MONO % 7.9 % (2.0-8.0); NEUTROPHILS # 4.2 10^3/uL (1.5-8.5); NEUTROPHILS % 64.3 % (36.0-66.0); PLATELET COUNT, AUTOMATED 268 10^3/uL (150-450); RED BLOOD COUNT 4.14 10^6/uL (4.00-5.40); WHITE BLOOD COUNT 6.5 10^3/uL (4.0-10.0)
[2022-08-29 17:06] LABS: ALBUMIN 3.5 G/DL (3.2-5.2); BILIRUBIN,TOTAL 0.4 MG/DL (0.3-1.2); CALCIUM LEVEL 9.1 MG/DL (8.3-10.6); CREATININE FOR GFR 1.15 MG/DL (0.55-1.30); GLOMERULAR FILTRATION RATE 50.3 (>45); POTASSIUM SERUM 4.5 MMOL/L (3.5-5.1); TOTAL PROTEIN 6.5 G/DL (5.7-8.2)
[2022-08-29 17:08] LABS: THYROID STIMULATING HORMONE 0.463 uIU/ML (0.55-4.78)
[2022-08-29 18:21] LABS: HEMOGLOBIN A1c 7.1 % (4.0-6.0)
== END ==
LOC: M WUC 11:40
PROVIDERS: ATTEND Physician Assistant
DX: I10 Essential (primary) hypertension (principal); E11.3299 Type 2 diabetes mellitus with mild nonproliferative diabetic retinopathy without macular edema, unspecified eye; E55.9 Vitamin D deficiency, unspecified; E78.2 Mixed hyperlipidemia

== ENCOUNTER → 2022-11-06 | Outpatient (CLI) | payer MEDICARE, OTHER, MEDICAID ==
[2022-11-06 17:21] LABS: HEMOGLOBIN A1c 7.1 % (4.0-6.0)
[2022-11-06 17:30] LABS: CHOLESTEROL RISK RATIO 4.89 (<5); HDL CHOLESTEROL 41.3 MG/DL (>40); LDL CHOLESTEROL 135.7 MG/DL (<100); NON-HDL-C 160.7 MG/DL
[2022-11-06 18:58] LABS: CREATININE, URINE 100.3 MG/DL; CREATININE,RANDOM URINE 100.3 MG/DL
[2022-11-06 19:12] LABS: MAU/CREAT RATIO 529.4 MCG/MG (0.0-30.0)
== END ==
LOC: M WUC 11:05
PROVIDERS: ATTEND Physician Assistant
DX: E11.3299 Type 2 diabetes mellitus with mild nonproliferative diabetic retinopathy without macular edema, unspecified eye (principal); E78.2 Mixed hyperlipidemia

== ENCOUNTER 2022-11-14 09:30 | Emergency (ER) | payer MEDICARE, MEDICAID ==
[~2022-11-14] VITALS: Ht 167.6 cm; Wt 128.0 kg
[2022-11-14] MEDS ORDERED: NS 500 ML IV ONE (09:40)
[2022-11-14] MEDS ORDERED: methylPREDNISolone 125MG 2ML VIAL IV ONE (09:50)
[2022-11-14] MEDS ORDERED: ALBUTEROL SULFATE 2.5MG/0.5ML INH NEB SOLN INH ONE (09:50)
[2022-11-14] MEDS ORDERED: IPRATROPIUM 0.5MG/ALBUTEROL 2.5MG INH SOL UD 3ML (DUONEB) NEB ONE (09:50)
[2022-11-14 10:07] LABS: BASO # 0.1 10^3/uL (0.0-0.2); BASO % 0.8 % (0.0-1.0); EOS # 0.4 10^3/uL (0.0-0.5); EOS % 7.1 % (0.0-3.0); HEMATOCRIT 37.4 % (36.0-47.0); HEMOGLOBIN 12.1 g/dl (12.0-15.5); LYMPH # 1.9 10^3/uL (1.5-5.0); MEAN CORPUSCULAR HEMOGLOBIN 28.9 pg (27.0-33.0); MEAN CORPUSCULAR HGB CONC 32.4 g/dl (32.0-36.5); MEAN CORPUSCULAR VOLUME 89.3 fl (80.0-96.0); MONO # 0.5 10^3/uL (0.0-0.8); MONO % 8.4 % (2.0-8.0); NEUTROPHILS # 3.2 10^3/uL (1.5-8.5); NEUTROPHILS % 52.4 % (36.0-66.0); PLATELET COUNT, AUTOMATED 228 10^3/uL (150-450); RED BLOOD COUNT 4.19 10^6/uL (4.00-5.40); WHITE BLOOD COUNT 6.2 10^3/uL (4.0-10.0)
[2022-11-14] MEDS ORDERED: AMLO2.5T3 (10:22)
[2022-11-14] MEDS ORDERED: TOBRSUS8 (10:22)
[2022-11-14 10:31] LABS: LIPASE 46 U/L (12-53)
[2022-11-14 10:32] LABS: CPK CREATINE PHOSPHOKINASE 89 U/L (34-145)
[2022-11-14 10:33] LABS: ALBUMIN 3.5 G/DL (3.2-5.2); ALKALINE PHOSPHATASE 103 U/L (46-116); ALT/SGPT 20 U/L (7.0-40); AST/SGOT 20 U/L (<34); BILIRUBIN,DIRECT 0.1 MG/DL (<0.4); BILIRUBIN,TOTAL 0.5 MG/DL (0.3-1.2); CK-MB VALUE MASS 1.2 NG/ML (<3.6); MB/CK RELATIVE INDEX 1.34 (< OR =4); TOTAL PROTEIN 6.6 G/DL (5.7-8.2)
[2022-11-14 10:34] LABS: INR 0.94; PROTHROMBIN TIME 12.8 SECONDS (12.5-14.5)
[2022-11-14 10:35] LABS: HCG, SERUM QUALITATIVE NEGATIVE (NEGATIVE); PARTIAL THROMBOPLASTIN TIME 23.6 SECONDS (24.8-34.2)
[2022-11-14 10:36] LABS: FREE T4 1.32 NG/DL (0.89-1.76)
[2022-11-14 10:37] LABS: THYROID STIMULATING HORMONE 1.089 uIU/ML (0.55-4.78)
[2022-11-14] MEDS ORDERED: ISOVUE-370 76% 100ML VIAL As Ordered ONE (10:42)
[2022-11-14 11:29] LABS: RSV AMPLIFICATION NEGATIVE (NEGATIVE)
[2022-11-14 11:31] LABS: CK-MB VALUE MASS 1.6 NG/ML (<3.6)
[2022-11-14 11:37] LABS: MB/CK RELATIVE INDEX 1.86 (< OR =4)
[2022-11-14 13:19] LABS: CK-MB VALUE MASS 1.3 NG/ML (<3.6)
[2022-11-14 13:21] LABS: MB/CK RELATIVE INDEX 1.52 (< OR =4)
[2022-11-14 14:09] VITALS: BP 183/84
== END 2022-11-14 14:14 | disposition home or self-care (01) ==
LOC: M ED 09:30
DX: R07.9 Chest pain, unspecified (principal); B34.9 Viral infection, unspecified; F32.A Depression, unspecified; F41.9 Anxiety disorder, unspecified; G43.909 Migraine, unspecified, not intractable, without status migrainosus; F17.200 Nicotine dependence, unspecified, uncomplicated; Z88.8 Allergy status to other drugs, medicaments and biological substances; Z79.82 Long term (current) use of aspirin; Z79.51 Long term (current) use of inhaled steroids; Z79.899 Other long term (current) drug therapy
CPT/HCPCS: 71045; 71275; 80047; 80076; 82550; 82553; 83690; 83880; 84439; 84443; 84484; 84703; 85025; 85610; 85730; 87040; 87631; 93005; 93041; 94640; 94760; 96374; 99285; J2930; Q9967

== ENCOUNTER → 2022-11-20 | Outpatient (CLI) | payer MEDICAID, MEDICARE ==
[~2022-11-20] MED LIST changes: +AMLO2.5T3; +TOBRSUS8
== END ==
LOC: M RAD 08:22
PROVIDERS: ATTEND Nurse Practitioner
DX: R16.1 Splenomegaly, not elsewhere classified (principal)

== ENCOUNTER 2022-12-17 07:42 | Emergency (ER) | payer MEDICARE, MEDICAID ==
[~2022-12-17] VITALS: Ht 167.6 cm; Wt 118.9 kg
[~2022-12-17 07:42] MED LIST changes: -AMLO2.5T3; +AMLO2.5T3 PO; -CARV3.12; +CARV3.12 PO; -EZET10TA21; +EZET10TA21 PO; -TRES1INJ2 INJ; +TRES1INJ2 SC; -TRUL10IN
[2022-12-17] MEDS ORDERED: ALBU2.5V10 NEB (07:58)
[2022-12-17] MEDS ORDERED: FURO20TA2 PO (07:58)
[2022-12-17] MEDS ORDERED: ALBUTEROL SULFATE 2.5MG/0.5ML INH NEB SOLN INH ONE (08:50)
[2022-12-17] MEDS ORDERED: IPRATROPIUM 0.5MG/ALBUTEROL 2.5MG INH SOL UD 3ML (DUONEB) NEB ONE (08:50)
[2022-12-17] MEDS ORDERED: methylPREDNISolone 125MG 2ML VIAL IV ONE (08:50)
[2022-12-17 09:19] LABS: BASO # 0.1 10^3/uL (0.0-0.2); BASO % 0.8 % (0.0-1.0); EOS # 0.4 10^3/uL (0.0-0.5); EOS % 6.2 % (0.0-3.0); HEMATOCRIT 36.7 % (36.0-47.0); HEMOGLOBIN 11.7 g/dl (12.0-15.5); LYMPH # 1.7 10^3/uL (1.5-5.0); LYMPH % 26.1 % (24.0-44.0); MEAN CORPUSCULAR HGB CONC 31.9 g/dl (32.0-36.5); MEAN CORPUSCULAR VOLUME 90.8 fl (80.0-96.0); MONO # 0.7 10^3/uL (0.0-0.8); MONO % 10.2 % (2.0-8.0); NEUTROPHILS # 3.7 10^3/uL (1.5-8.5); NEUTROPHILS % 56.2 % (36.0-66.0); PLATELET COUNT, AUTOMATED 229 10^3/uL (150-450); RED BLOOD COUNT 4.04 10^6/uL (4.00-5.40); WHITE BLOOD COUNT 6.6 10^3/uL (4.0-10.0)
[2022-12-17 09:23] LABS: VENOUS BASE EXCESS -2.3 (-2.0-2.0); VENOUS HCO3 24.2 MMOL/L (23.0-27.0); VENOUS O2 SATURATION 72.4 % (60.0-80.0); VENOUS PARTIAL PRESSURE CO2 48.4 mmHg (38.0-50.0); VENOUS PH 7.316 UNITS (7.330-7.430); VENOUS STANDARD HCO3 22.1 MMOL/L; VENOUS TOTAL CO2 25.6 MMOL/L (24.0-28.0)
[2022-12-17 09:33] LABS: INR 0.93; PROTHROMBIN TIME 12.7 SECONDS (12.5-14.5)
[2022-12-17 09:34] LABS: PARTIAL THROMBOPLASTIN TIME 25.2 SECONDS (24.8-34.2)
[2022-12-17 09:48] LABS: CK-MB VALUE MASS 1.1 NG/ML (<3.6)
[2022-12-17 09:51] LABS: ALBUMIN 3.4 G/DL (3.2-5.2); BILIRUBIN,DIRECT 0.1 MG/DL (<0.4); BILIRUBIN,TOTAL 0.3 MG/DL (0.3-1.2); CALCIUM LEVEL 8.9 MG/DL (8.3-10.6); CREATININE FOR GFR 1.16 MG/DL (0.55-1.30); GLOMERULAR FILTRATION RATE 49.6 (>45); MB/CK RELATIVE INDEX 1.13 (< OR =4); POTASSIUM SERUM 4.6 MMOL/L (3.5-5.1); TOTAL PROTEIN 6.1 G/DL (5.7-8.2)
[2022-12-17 09:52] LABS: THYROID STIMULATING HORMONE 0.188 uIU/ML (0.55-4.78)
[2022-12-17 10:57] LABS: CK-MB VALUE MASS 1.2 NG/ML (<3.6)
[2022-12-17 10:59] LABS: MB/CK RELATIVE INDEX 1.3 (< OR =4)
[2022-12-17 11:01] LABS: FREE T4 1.48 NG/DL (0.89-1.76)
[2022-12-17] MEDS ORDERED: BAYE325T13 PO (11:09)
[2022-12-17] MEDS ORDERED: MOMETASONE 0.1% TOP (11:09)
[2022-12-17] MEDS ORDERED: HOME MED LIST COMPLETE! XX SCH (11:15)
[2022-12-17] MEDS ORDERED: PRED10TA2 PO (11:36)
[2022-12-17] MEDS ORDERED: IPRA0.00 INH (11:36)
[2022-12-17] MEDS ORDERED: GUAI100L6 PO (11:38)
[2022-12-17 12:41] VITALS: BP 142/70
== END 2022-12-17 12:51 | disposition home or self-care (01) ==
LOC: M ED 07:42
DX: J44.1 Chronic obstructive pulmonary disease with (acute) exacerbation (principal); I10 Essential (primary) hypertension; E78.5 Hyperlipidemia, unspecified; E11.9 Type 2 diabetes mellitus without complications; K21.9 Gastro-esophageal reflux disease without esophagitis; J45.909 Unspecified asthma, uncomplicated; Z86.73 Personal history of transient ischemic attack (TIA), and cerebral infarction without residual deficits; Z88.8 Allergy status to other drugs, medicaments and biological substances; Z88.5 Allergy status to narcotic agent; Z79.899 Other long term (current) drug therapy; Z79.84 Long term (current) use of oral hypoglycemic drugs; Z79.4 Long term (current) use of insulin; Z79.82 Long term (current) use of aspirin
CPT/HCPCS: 71045; 80048; 80076; 82550; 82553; 82803; 83605; 83880; 84439; 84443; 84484; 85025; 85610; 85730; 87040; 87486; 87581; 87633; 87798; 93005; 93041; 94640; 94760; 96374; 99285; J2930

== ENCOUNTER → 2022-12-18 | Outpatient (CLI) | payer MEDICARE, MEDICAID ==
[~2022-12-18] MED LIST changes: +ALBU2.5V10 NEB; +BAYE325T13 PO; +FURO20TA2 PO; +GUAI100L6 PO; +IPRA0.00 INH; +MOMETASONE 0.1% TOP; +PRED10TA2 PO
== END ==
LOC: M WHC 14:49
PROVIDERS: ATTEND Internal Medicine Medical Oncology
DX: Z12.31 Encounter for screening mammogram for malignant neoplasm of breast (principal)

== ENCOUNTER 2023-01-03 07:11 | Emergency (ER) | payer MEDICAID, MEDICARE ==
[~2023-01-03] VITALS: Ht 167.6 cm; Wt 120.5 kg
[2023-01-03 08:43] LABS: BASO % 0.4 % (0.0-1.0); EOS # 0.3 10^3/uL (0.0-0.5); EOS % 3.3 % (0.0-3.0); HEMATOCRIT 33.3 % (36.0-47.0); HEMOGLOBIN 10.7 g/dl (12.0-15.5); LYMPH # 1.8 10^3/uL (1.5-5.0); LYMPH % 22.5 % (24.0-44.0); MEAN CORPUSCULAR HEMOGLOBIN 29.1 pg (27.0-33.0); MEAN CORPUSCULAR HGB CONC 32.1 g/dl (32.0-36.5); MEAN CORPUSCULAR VOLUME 90.5 fl (80.0-96.0); MONO # 0.8 10^3/uL (0.0-0.8); MONO % 9.9 % (2.0-8.0); NEUTROPHILS # 4.9 10^3/uL (1.5-8.5); NEUTROPHILS % 63.5 % (36.0-66.0); PLATELET COUNT, AUTOMATED 154 10^3/uL (150-450); RED BLOOD COUNT 3.68 10^6/uL (4.00-5.40); WHITE BLOOD COUNT 7.8 10^3/uL (4.0-10.0)
[2023-01-03] MEDS ORDERED: IPRATROPIUM 0.5MG/ALBUTEROL 2.5MG INH SOL UD 3ML (DUONEB) NEB ONE (08:55)
[2023-01-03] MEDS ORDERED: MORPHINE 2 MG/ML 1ML VIAL IV PRN (08:55)
[2023-01-03] MEDS ORDERED: methylPREDNISolone 125MG 2ML VIAL IV ONE (08:55)
[2023-01-03] MEDS ORDERED: ALBUTEROL SULFATE 2.5MG/0.5ML INH NEB SOLN INH ONE (08:55)
[2023-01-03 09:08] LABS: ALBUMIN 2.9 G/DL (3.2-5.2); ALKALINE PHOSPHATASE 90 U/L (46-116); ALT/SGPT 31 U/L (7.0-40); AST/SGOT 25 U/L (<34); BILIRUBIN,DIRECT 0.2 MG/DL (<0.4); BILIRUBIN,TOTAL 0.7 MG/DL (0.3-1.2); BLOOD UREA NITROGEN 55 MG/DL (9-23); CALCIUM LEVEL 9.1 MG/DL (8.3-10.6); CARBON DIOXIDE LEVEL 25 MMOL/L (20-31); CHLORIDE LEVEL 104 MMOL/L (98-107); CREATININE FOR GFR 1.38 MG/DL (0.55-1.30); GLOMERULAR FILTRATION RATE 40.6 (>45); GLUCOSE, FASTING 171 MG/DL (74-106); POTASSIUM SERUM 4.2 MMOL/L (3.5-5.1); SODIUM LEVEL 136 MMOL/L (136-145); TOTAL PROTEIN 5.7 G/DL (5.7-8.2)
[2023-01-03 09:25] LABS: LIPASE 51 U/L (12-53)
[2023-01-03 09:26] LABS: CK-MB VALUE MASS < 1.0 NG/ML (<3.6)
[2023-01-03 09:27] LABS: CPK CREATINE PHOSPHOKINASE 240 U/L (34-145); MB/CK RELATIVE INDEX 0.41 (< OR =4)
[2023-01-03] MEDS ORDERED: ISOVUE-370 76% 100ML VIAL As Ordered ONE (10:11)
[2023-01-03 12:15] LABS: CK-MB VALUE MASS < 1.0 NG/ML (<3.6)
[2023-01-03 12:17] LABS: CPK CREATINE PHOSPHOKINASE 225 U/L (34-145); MB/CK RELATIVE INDEX 0.44 (< OR =4)
[2023-01-03 13:00] VITALS: BP 135/66
[2023-01-03 13:24] LABS: RSV AMPLIFICATION NEGATIVE (NEGATIVE)
[2023-01-03] MEDS ORDERED: MOXI400T11 PO (13:34)
[2023-01-03] MEDS ORDERED: PRED20TA PO (13:34)
[2023-01-03] MEDS ORDERED: MOXIFLOXACIN 400 MG TAB PO ONE (13:35)
[2023-01-03] MEDS ORDERED: PERC5TAB12 PO (13:36)
== END 2023-01-03 14:22 | disposition home or self-care (01) ==
LOC: M ED 07:11
DX: J44.1 Chronic obstructive pulmonary disease with (acute) exacerbation (principal); J40 Bronchitis, not specified as acute or chronic; R10.32 Left lower quadrant pain; I10 Essential (primary) hypertension; E78.9 Disorder of lipoprotein metabolism, unspecified; Z86.73 Personal history of transient ischemic attack (TIA), and cerebral infarction without residual deficits; Z79.899 Other long term (current) drug therapy; Z79.52 Long term (current) use of systemic steroids; Z79.84 Long term (current) use of oral hypoglycemic drugs; Z79.4 Long term (current) use of insulin; Z79.82 Long term (current) use of aspirin
CPT/HCPCS: 36415; 36600; 71045; 71275; 74177; 80048; 80076; 81001; 82550; 82553; 82803; 83605; 83690; 83880; 84484; 85025; 87040; 87631; 93005; 93041; 94640; 94760; 96374; 96375; 99285; J2930; Q9967

== ENCOUNTER → 2023-04-29 | Outpatient (CLI) | payer MEDICARE, MEDICAID ==
[~2023-04-29] MED LIST changes: +MOXI400T11 PO; +PERC5TAB12 PO; +PRED20TA PO
[2023-04-29 17:07] LABS: HEMOGLOBIN A1c 9.5 % (4.0-6.0)
[2023-04-29 17:15] LABS: CHOLESTEROL RISK RATIO 5.34 (<5); HDL CHOLESTEROL 39.5 MG/DL (>40); LDL CHOLESTEROL 108.3 MG/DL (<100); NON-HDL-C 171.5 MG/DL
== END ==
LOC: M WUC 13:58
PROVIDERS: ATTEND Physician Assistant
DX: E11.3299 Type 2 diabetes mellitus with mild nonproliferative diabetic retinopathy without macular edema, unspecified eye (principal); E78.5 Hyperlipidemia, unspecified

== ENCOUNTER → 2023-06-23 | Outpatient (REF) | payer MEDICARE, MEDICAID | LOC: M LAB REF 13:04 | PROVIDERS: ATTEND Internal Medicine Pulmonary Disease | DX: R05.9 Cough, unspecified (principal) ==

== ENCOUNTER → 2023-07-25 | Outpatient (CLI) | payer MEDICARE, MEDICAID | LOC: M RAD 07:27 | PROVIDERS: ATTEND Physician Assistant Medical | DX: K76.0 Fatty (change of) liver, not elsewhere classified (principal); Z90.89 Acquired absence of other organs ==

== ENCOUNTER → 2023-08-01 | Outpatient (REF) | payer MEDICARE, MEDICAID ==
[2023-08-01 14:23] LABS: HEMOGLOBIN A1c 7.5 % (4.0-6.0)
== END ==
LOC: M WUC 12:07
PROVIDERS: ATTEND Physician Assistant
DX: E11.3299 Type 2 diabetes mellitus with mild nonproliferative diabetic retinopathy without macular edema, unspecified eye (principal); Z79.899 Other long term (current) drug therapy

== ENCOUNTER → 2023-08-20 | Outpatient (CLI) | payer BC, MEDICARE | LOC: M PAIN 13:00 | PROVIDERS: ATTEND Anesthesiology | DX: G62.9 Polyneuropathy, unspecified (principal); G57.90 Unspecified mononeuropathy of unspecified lower limb; M54.50 Low back pain, unspecified; Z87.891 Personal history of nicotine dependence; Z79.899 Other long term (current) drug therapy; Z88.5 Allergy status to narcotic agent; Z88.8 Allergy status to other drugs, medicaments and biological substances ==

== ENCOUNTER → 2023-09-22 | Outpatient (CLI) | payer MEDICARE, MEDICAID | LOC: M WUC 12:17 | PROVIDERS: ATTEND Physician Assistant | DX: M89.8X6 Other specified disorders of bone, lower leg (principal) ==

== ENCOUNTER 2023-09-24 18:19 | Emergency (ER) | payer MEDICARE, MEDICAID ==
[~2023-09-24] VITALS: Ht 167.6 cm; Wt 125.0 kg
[2023-09-24 23:35] LABS: RSV AMPLIFICATION POSITIVE (NEGATIVE)
[2023-09-25] MEDS ORDERED: OSEL75CA PO (01:46)
[2023-09-25] MEDS ORDERED: BENZ200C70 PO (01:46)
[2023-09-25 02:14] VITALS: BP 124/78; TEMP 98; O2SAT 98
== END 2023-09-25 02:18 | disposition home or self-care (01) ==
LOC: M ED 18:19
DX: J09.X2 Influenza due to identified novel influenza A virus with other respiratory manifestations (principal); B97.4 Respiratory syncytial virus as the cause of diseases classified elsewhere; J90 Pleural effusion, not elsewhere classified; E11.9 Type 2 diabetes mellitus without complications; I10 Essential (primary) hypertension; E78.5 Hyperlipidemia, unspecified; N18.6 End stage renal disease; J44.9 Chronic obstructive pulmonary disease, unspecified; Z87.442 Personal history of urinary calculi; Z79.82 Long term (current) use of aspirin; Z79.4 Long term (current) use of insulin; Z79.899 Other long term (current) drug therapy; Z88.5 Allergy status to narcotic agent; Z88.8 Allergy status to other drugs, medicaments and biological substances

== ENCOUNTER → 2023-10-08 | Outpatient (CLI) | payer MEDICARE, MEDICAID ==
[~2023-10-08] MED LIST changes: +BENZ200C70 PO; +OSEL75CA PO
== END ==
LOC: M PLAIMG 13:07
PROVIDERS: ATTEND Nurse Practitioner Family
DX: J44.9 Chronic obstructive pulmonary disease, unspecified (principal)

== ENCOUNTER → 2023-10-21 | Outpatient (REF) | payer MEDICARE, MEDICAID, OTHER | LOC: M LAB REF 13:32 | PROVIDERS: ATTEND Nurse Practitioner Family | DX: J44.9 Chronic obstructive pulmonary disease, unspecified (principal) ==

== ENCOUNTER → 2023-11-13 | Outpatient (CLI) | payer MEDICARE, MEDICAID ==
[2023-11-13 12:00] LABS: HEMATOCRIT 35.9 % (36.0-47.0); HEMOGLOBIN 11.2 g/dl (12.0-15.5); MEAN CORPUSCULAR HEMOGLOBIN 29.5 pg (27.0-33.0); MEAN CORPUSCULAR HGB CONC 31.2 g/dl (32.0-36.5); MEAN CORPUSCULAR VOLUME 94.5 fl (80.0-96.0); PLATELET COUNT, AUTOMATED 197 10^3/uL (150-450); WHITE BLOOD COUNT 5.9 10^3/uL (4.0-10.0)
[2023-11-13 12:23] LABS: ALBUMIN 3.4 G/DL (3.2-5.2); BILIRUBIN,TOTAL 0.4 MG/DL (0.3-1.2); CALCIUM LEVEL 9.9 MG/DL (8.3-10.6); CHOLESTEROL RISK RATIO 5.23 (<5); CREATININE FOR GFR 1.34 MG/DL (0.55-1.30); GLOMERULAR FILTRATION RATE 41.9 (>45); HDL CHOLESTEROL 38.6 MG/DL (>40); HEMOGLOBIN A1c 6.8 % (4.0-6.0); LDL CHOLESTEROL 118.6 MG/DL (<100); NON-HDL-C 163.4 MG/DL; POTASSIUM SERUM 4.6 MMOL/L (3.5-5.1); TOTAL PROTEIN 5.9 G/DL (5.7-8.2)
[2023-11-13 12:25] LABS: THYROID STIMULATING HORMONE 0.861 uIU/ML (0.55-4.78)
== END ==
LOC: M WUC 09:12
PROVIDERS: ATTEND Physician Assistant
DX: E11.3299 Type 2 diabetes mellitus with mild nonproliferative diabetic retinopathy without macular edema, unspecified eye (principal); E78.5 Hyperlipidemia, unspecified

== ENCOUNTER → 2023-11-26 | Outpatient (CLI) | payer MEDICAID, MEDICARE, OTHER | LOC: M RAD 08:06 | PROVIDERS: ATTEND Internal Medicine Medical Oncology | DX: R16.2 Hepatomegaly with splenomegaly, not elsewhere classified (principal) ==

== ENCOUNTER → 2023-12-31 | Outpatient (REF) | payer MEDICARE, MEDICAID ==
[~2023-12-31] MED LIST changes: +BUDE0.5S6; +FERR325T3 PO; +FLUT1BLS8; +FURO40TA2; +TIRZ15PE
[2023-12-31 15:09] LABS: IMMUNOGLOBULIN A 134.4 MG/DL (40-350); IMMUNOGLOBULIN G 339 MG/DL (650-1600)
== END ==
LOC: M LAB REF 12:50
PROVIDERS: ATTEND Internal Medicine Pulmonary Disease
DX: J44.9 Chronic obstructive pulmonary disease, unspecified (principal)

== ENCOUNTER → 2024-02-11 | Outpatient (REF) | payer MEDICARE, MEDICAID ==
[~2024-02-11] MED LIST changes: +ALLO10TA PO; +AMIO400T2 PO; +BACL10TA2 PO; -BUDE0.5S6; +BUDE0.5S6 INH; +BUSP15TA47 PO; +DULO1CAP5 PO; +ELIQ5TAB PO; +FERR1TAB8; +FERR1TAB8 PO; -FLUT1BLS8; +FLUT1BLS8 INH; -FURO40TA2; +LISI40TA4 PO; +MAGN400T2 PO; +METO100T5 PO; +METO5TA PO; +PERCOCET PO; +POTA-150 PO; +QUET50TA4 PO; +THERTAB52 PO; -TIRZ15PE; +TIRZ15PE PO; +ZINC50TA14 PO
[2024-02-12 14:57] LABS: HEMOGLOBIN A1c 8.1 % (4.0-6.0)
== END ==
LOC: M LAB REF 16:31
PROVIDERS: ATTEND Physician Assistant
DX: E11.3299 Type 2 diabetes mellitus with mild nonproliferative diabetic retinopathy without macular edema, unspecified eye (principal)

== ENCOUNTER → 2024-02-24 | Outpatient (CLI) | payer MEDICARE, MEDICAID | LOC: M RAD 12:41 | PROVIDERS: ATTEND Internal Medicine Pulmonary Disease | DX: Z87.891 Personal history of nicotine dependence (principal) ==

== ENCOUNTER 2024-03-25 07:13 | Inpatient (IN) | payer MEDICARE, MEDICAID ==
[~2024-03-25] VITALS: Ht 167.6 cm; Wt 125.6 kg
[2024-03-25 07:35] LABS: VENOUS BASE EXCESS -12.5 (-2.0-2.0); VENOUS O2 SATURATION 45.4 % (60.0-80.0); VENOUS PARTIAL PRESSURE CO2 71.6 mmHg (38.0-50.0); VENOUS PARTIAL PRESSURE O2 34.5 mmHg (30.0-50.0); VENOUS PH 7.042 UNITS (7.330-7.430); VENOUS STANDARD HCO3 13.9 MMOL/L; VENOUS TOTAL CO2 21.2 MMOL/L (24.0-28.0)
[2024-03-25 07:39] LABS: BASO % 0.3 % (0.0-1.0); EOS # 0.1 10^3/uL (0.0-0.5); EOS % 0.5 % (0.0-3.0); HEMATOCRIT 42.1 % (36.0-47.0); HEMOGLOBIN 12.2 g/dl (12.0-15.5); LYMPH # 3.2 10^3/uL (1.5-5.0); LYMPH % 21.7 % (24.0-44.0); MEAN CORPUSCULAR VOLUME 100.2 fl (80.0-96.0); MONO # 1.5 10^3/uL (0.0-0.8); MONO % 10.2 % (2.0-8.0); NEUTROPHILS # 9.8 10^3/uL (1.5-8.5); NEUTROPHILS % 66.9 % (36.0-66.0); PLATELET COUNT, AUTOMATED 304 10^3/uL (150-450); WHITE BLOOD COUNT 14.7 10^3/uL (4.0-10.0)
[2024-03-25] MEDS: IPRATROPIUM 0.5MG/ALBUTEROL 2.5MG INH SOL UD 3ML (DUONEB) NEB SCH ×2 (07:49→14:59)
[2024-03-25] MEDS: ALBUTEROL SULFATE 2.5MG/0.5ML INH NEB SOLN NEB ONE (07:50)
[2024-03-25 08:08] LABS: ALBUMIN 3.2 G/DL (3.2-5.2); BILIRUBIN,DIRECT 0.2 MG/DL (<0.4); BILIRUBIN,TOTAL 0.5 MG/DL (0.3-1.2); CALCIUM LEVEL 8.6 MG/DL (8.3-10.6); CREATININE FOR GFR 1.77 MG/DL (0.55-1.30); GLOMERULAR FILTRATION RATE 30.4 (>45); POTASSIUM SERUM 4.2 MMOL/L (3.5-5.1)
[2024-03-25 08:11] LABS: THYROID STIMULATING HORMONE 1.493 uIU/ML (0.55-4.78)
[2024-03-25 08:13] LABS: ABG BASE EXCESS -9.5 (-2.0-2.0); ABG HCO3 17.6 MMOL/L (22.0-26.0); ABG O2 SATURATION 95.5 % (95.0-99.0); ABG PARTIAL PRESSURE CO2 42.6 mmHg (35.0-45.0); ABG PARTIAL PRESSURE O2 93.1 mmHg (75.0-100.0); ABG STANDARD HCO3 16.9 MMOL/L. (22.0-26.0); ABG TOTAL CO2 18.9 MMOL/L (23.0-31.0)
[2024-03-25 08:16] LABS: ABG pH (ARTERIAL) 7.233 UNITS (7.350-7.450)
[2024-03-25] MEDS ORDERED: AMIO200T37 PO (08:33)
[2024-03-25] MEDS ORDERED: TIRZ15PE SQ (08:33)
[2024-03-25] MEDS ORDERED: ELIQ5TAB PO (08:33)
[2024-03-25] MEDS ORDERED: FARX1TAB3 PO (08:33)
[2024-03-25] MEDS ORDERED: METO100T5 PO (08:33)
[2024-03-25] MEDS ORDERED: POTA1TAB23 PO (08:33)
[2024-03-25] MEDS ORDERED: HOME MED LIST COMPLETE! XX SCH (08:35)
[2024-03-25] MEDS ORDERED: LEVEMIR (INSULIN DETEMIR) 1 UNITS/0.01ML SC SCH (09:00)
[2024-03-25] MEDS: FUROSEMIDE 40MG/4ML VIAL IV ONE (09:04)
[2024-03-25] MEDS: cefTRIAXone SOD 2 GM in D5W MINI-BAG PLUS 50 ML IV ONE (09:05)
[2024-03-25] MEDS ORDERED: GLUCAGON INJ 1MG VIAL SC PRN (12:50)
[2024-03-25] MEDS ORDERED: DEXTROSE 50% 50ML SYRINGE IV PRN (12:50)
[2024-03-25] MEDS ORDERED: GLUCOSE 4 GM CHEW PO PRN (12:50)
[2024-03-25 12:58] LABS: PROCALCITONIN 0.15 ng/ml
[2024-03-25 13:57] VITALS: BP 161/70; TEMP 98.9; O2SAT 97
[2024-03-25] MEDS: APIXABAN 5 MG TAB (ELIQUIS) PO SCH (14:09)
[2024-03-25] MEDS: METOPROLOL TARTRATE 100MG TAB PO SCH (14:09)
[2024-03-25] MEDS: DAPAGLIFLOZIN PROPANEDIOL 10MG TABLET (FARXIGA) PO SCH (14:09)
[2024-03-25] MEDS: BACLOFEN 10 MG TAB PO SCH (14:09)
[2024-03-25] MEDS: POTASSIUM CHLORIDE 10MEQ SR TABLET PO SCH (14:09)
[2024-03-25] MEDS: AMIODARONE 200 MG TAB (PACERONE) PO SCH (14:10)
[2024-03-25] MEDS: EZETIMIBE 10MG TABLET (ZETIA) PO SCH (14:10)
[2024-03-25] MEDS: PANTOPRAZOLE 40MG TAB (PROTONIX) PO SCH (14:10)
[2024-03-25] MEDS: allopurinoL 100 MG TAB PO SCH (14:10)
[2024-03-25] MEDS: INSULIN LISPRO (NovoLOG) PER UNIT SC SCH ×2 (14:23→22:22)
[2024-03-25] MEDS: TIOTROPIUM INHALER/CAPSULE (SPIRIVA) INH SCH (14:59)
[2024-03-25] MEDS: ADVAIR HFA 230/21MCG INHALER INH SCH (14:59)
[2024-03-25] MEDS: PERCOCET 5MG/325MG TAB PO PRN (15:09)
[2024-03-25 16:27] VITALS: BP 144/80; TEMP 99.4; O2SAT 97
[2024-03-25] MEDS: REMDESIVIR 200 MG in NS 250 ML IV ONE (16:56)
[2024-03-25] MEDS ORDERED: INSULIN LISPRO (NovoLOG) PER UNIT SC SCH (17:30)
[2024-03-25 20:00] VITALS: BP 128/75; TEMP 98.9; O2SAT 97
[2024-03-25] MEDS: LEVEMIR (INSULIN DETEMIR) 1 UNITS/0.01ML SC SCH ×2 (21:00→22:23)
[2024-03-26] VITALS (8 sets, daily range): BP systolic 122–142; BP diastolic 67–95; TEMP 97–98.8; O2SAT 95–100
[2024-03-26] MEDS ORDERED: UNRESOLVED CLARIFICATION ENTRY XX SCH (00:01)
[2024-03-26] MEDS: ALBUTEROL SULFATE 2.5MG/0.5ML INH NEB SOLN NEB PRN (02:11)
[2024-03-26 06:04] LABS: HEMATOCRIT 35.3 % (36.0-47.0); HEMOGLOBIN 11.4 g/dl (12.0-15.5); MEAN CORPUSCULAR HEMOGLOBIN 29.8 pg (27.0-33.0); MEAN CORPUSCULAR HGB CONC 32.3 g/dl (32.0-36.5); MEAN CORPUSCULAR VOLUME 92.4 fl (80.0-96.0); PLATELET COUNT, AUTOMATED 207 10^3/uL (150-450); RED BLOOD COUNT 3.82 10^6/uL (4.00-5.40); WHITE BLOOD COUNT 6.2 10^3/uL (4.0-10.0)
[2024-03-26 06:30] LABS: ALBUMIN 2.9 G/DL (3.2-5.2); BILIRUBIN,TOTAL 0.3 MG/DL (0.3-1.2); CREATININE FOR GFR 1.51 MG/DL (0.55-1.30); GLOMERULAR FILTRATION RATE 36.5 (>45); POTASSIUM SERUM 4.8 MMOL/L (3.5-5.1); TOTAL PROTEIN 5.6 G/DL (5.7-8.2)
[2024-03-26] MEDS: NS 1,000 ML IV SCH (08:05)
[2024-03-26] MEDS: ACETAMINOPHEN TAB 650MG DOSE (2X325MG) PO PRN (08:10)
[2024-03-26] MEDS ORDERED: ENOXAPARIN 40MG/0.4ML SYRINGE (J1650 PER 10MG) SC SCH (09:00)
[2024-03-26] MEDS ORDERED: lisinopriL 40MG TAB PO SCH (09:00)
[2024-03-26] MEDS ORDERED: PILL CUTTER 1 EACH XX PRN (09:55)
[2024-03-26] MEDS: oxyCODONE 5MG TAB PO PRN (11:50)
[2024-03-26] MEDS: LEVEMIR (INSULIN DETEMIR) 1 UNITS/0.01ML SC SCH (14:33)
[2024-03-26] MEDS: REMDESIVIR 100 MG in NS 250 ML IV SCH (16:24)
[2024-03-26] MEDS: NYSTATIN 100,000 UNITS/GM TOPICAL PWD 15GM TOP PRN (20:55)
[2024-03-27] VITALS (7 sets, daily range): BP systolic 140–154; BP diastolic 90–107; TEMP 97–98.5; O2SAT 95–98
[2024-03-27 04:38] LABS: HEMATOCRIT 35.7 % (36.0-47.0); HEMOGLOBIN 11.2 g/dl (12.0-15.5); MEAN CORPUSCULAR HEMOGLOBIN 29.4 pg (27.0-33.0); MEAN CORPUSCULAR HGB CONC 31.4 g/dl (32.0-36.5); MEAN CORPUSCULAR VOLUME 93.7 fl (80.0-96.0); PLATELET COUNT, AUTOMATED 251 10^3/uL (150-450); RED BLOOD COUNT 3.81 10^6/uL (4.00-5.40); WHITE BLOOD COUNT 11.6 10^3/uL (4.0-10.0)
[2024-03-27 05:12] LABS: ALBUMIN 3.1 G/DL (3.2-5.2); BILIRUBIN,TOTAL 0.3 MG/DL (0.3-1.2); CALCIUM LEVEL 9.1 MG/DL (8.3-10.6); CREATININE FOR GFR 1.29 MG/DL (0.55-1.30); GLOMERULAR FILTRATION RATE 43.8 (>45); POTASSIUM SERUM 4.6 MMOL/L (3.5-5.1); TOTAL PROTEIN 5.9 G/DL (5.7-8.2)
[2024-03-27] MEDS ORDERED: FURO20TA2 PO (08:58)
[2024-03-27] MEDS: COMBIVENT RESPIMAT 100-20MCG INHALER 4GM INH SCH (15:57)
[2024-03-28 04:00] VITALS: BP 151/70; TEMP 96.8; O2SAT 95
[2024-03-28 05:35] VITALS: TEMP 97.4
[2024-03-28 06:10] LABS: HEMATOCRIT 36.3 % (36.0-47.0); HEMOGLOBIN 11.3 g/dl (12.0-15.5); MEAN CORPUSCULAR HEMOGLOBIN 28.9 pg (27.0-33.0); MEAN CORPUSCULAR HGB CONC 31.1 g/dl (32.0-36.5); MEAN CORPUSCULAR VOLUME 92.8 fl (80.0-96.0); PLATELET COUNT, AUTOMATED 245 10^3/uL (150-450); RED BLOOD COUNT 3.91 10^6/uL (4.00-5.40); WHITE BLOOD COUNT 7.9 10^3/uL (4.0-10.0)
[2024-03-28 06:45] LABS: BILIRUBIN,TOTAL 0.3 MG/DL (0.3-1.2); CALCIUM LEVEL 8.8 MG/DL (8.3-10.6); CREATININE FOR GFR 1.31 MG/DL (0.55-1.30); POTASSIUM SERUM 4.5 MMOL/L (3.5-5.1); TOTAL PROTEIN 5.5 G/DL (5.7-8.2)
[2024-03-28] MEDS ORDERED: LevoFLOXacin IV 500 MG in IV 1 EA IV SCH (07:35)
[2024-03-28 08:13] VITALS: BP 183/98
[2024-03-28] MEDS: FUROSEMIDE 40MG/4ML VIAL IV ONE (08:13)
[2024-03-28] MEDS: guaiFENesin ER TABLET 600 MG TAB PO SCH (10:52)
[2024-03-28] MEDS ORDERED: CEFD1CAP9 PO (11:28)
[2024-03-28] MEDS ORDERED: FURO20TA2 PO (11:28)
[2024-03-28] MEDS ORDERED: DOXY-440 PO (11:28)
[2024-03-28] MEDS ORDERED: MUCI600T31 PO (11:29)
[2024-03-28] MEDS ORDERED: PROB250C PO (11:31)
[2024-03-28 12:00] VITALS: BP 159/109; TEMP 98.1; O2SAT 97
[2024-03-28 13:49] VITALS: BP 144/72
== END 2024-03-28 17:40 | disposition home or self-care (01) | DRG 871 ==
LOC: M ED 07:13 → M ED INP 12:03 → M ICU 13:27 → M MSPAV 03-27 16:24
PROVIDERS: ADMIT Internal Medicine; ATTEND Internal Medicine
DX: A41.9 Sepsis, unspecified organism (principal); I50.23 Acute on chronic systolic (congestive) heart failure; U07.1 COVID-19; J96.01 Acute respiratory failure with hypoxia; J15.9 Unspecified bacterial pneumonia; I48.92 Unspecified atrial flutter; J98.11 Atelectasis; E87.20 Acidosis, unspecified; I13.0 Hypertensive heart and chronic kidney disease with heart failure and stage 1 through stage 4 chronic kidney disease, or unspecified chronic kidney disease; I48.91 Unspecified atrial fibrillation; M10.9 Gout, unspecified; J44.9 Chronic obstructive pulmonary disease, unspecified; G47.33 Obstructive sleep apnea (adult) (pediatric); K75.81 Nonalcoholic steatohepatitis (NASH); D50.9 Iron deficiency anemia, unspecified; E11.42 Type 2 diabetes mellitus with diabetic polyneuropathy; E78.5 Hyperlipidemia, unspecified; E11.3299 Type 2 diabetes mellitus with mild nonproliferative diabetic retinopathy without macular edema, unspecified eye; G89.29 Other chronic pain; M54.9 Dorsalgia, unspecified; E11.22 Type 2 diabetes mellitus with diabetic chronic kidney disease; F32.A Depression, unspecified; F41.9 Anxiety disorder, unspecified; G47.00 Insomnia, unspecified; E04.2 Nontoxic multinodular goiter; N18.30 Chronic kidney disease, stage 3 unspecified; E11.65 Type 2 diabetes mellitus with hyperglycemia; L40.9 Psoriasis, unspecified; F17.200 Nicotine dependence, unspecified, uncomplicated; Z90.49 Acquired absence of other specified parts of digestive tract; Z98.84 Bariatric surgery status; Z79.01 Long term (current) use of anticoagulants; Z79.4 Long term (current) use of insulin; Z79.899 Other long term (current) drug therapy; Z88.5 Allergy status to narcotic agent; Z88.8 Allergy status to other drugs, medicaments and biological substances

== ENCOUNTER 2024-08-09 11:10 | Emergency (ER) | payer MEDICARE, MEDICAID ==
[~2024-08-09] VITALS: Ht 167.6 cm; Wt 121.4 kg
[~2024-08-09 11:10] MED LIST changes: +AMIO200T37 PO; +CEFD1CAP9 PO; +DOXY-440 PO; +FARX1TAB3 PO; +METF-1157 PO; -METF-818 PO; +MUCI600T31 PO; +POTA1TAB23 PO; +PROB250C PO; +TIRZ15PE SQ
[2024-08-09 11:12] VITALS: BP 147/72; TEMP 97; O2SAT 98
== END 2024-08-09 12:05 | disposition home or self-care (01) ==
LOC: M ED 11:10
DX: R04.0 Epistaxis (principal); J06.9 Acute upper respiratory infection, unspecified; J43.9 Emphysema, unspecified; Z88.5 Allergy status to narcotic agent; Z88.8 Allergy status to other drugs, medicaments and biological substances; Z79.51 Long term (current) use of inhaled steroids; Z79.01 Long term (current) use of anticoagulants; Z79.4 Long term (current) use of insulin; Z79.899 Other long term (current) drug therapy

== ENCOUNTER → 2024-08-16 | Outpatient (CLI) | payer MEDICARE, MEDICAID ==
[2024-08-16 17:24] LABS: HEMATOCRIT 44.5 % (36.0-47.0); MEAN CORPUSCULAR HEMOGLOBIN 29.5 pg (27.0-33.0); MEAN CORPUSCULAR HGB CONC 31.5 g/dl (32.0-36.5); MEAN CORPUSCULAR VOLUME 93.7 fl (80.0-96.0); PLATELET COUNT, AUTOMATED 399 10^3/uL (150-450); RED BLOOD COUNT 4.75 10^6/uL (4.00-5.40)
[2024-08-16 17:48] LABS: ALBUMIN 3.7 G/DL (3.2-5.2); BILIRUBIN,TOTAL 0.7 MG/DL (0.3-1.2); CALCIUM LEVEL 10.1 MG/DL (8.3-10.6); CHOLESTEROL RISK RATIO 4.19 (<5); CREATININE FOR GFR 2.38 MG/DL (0.55-1.30); GLOMERULAR FILTRATION RATE 21.6 (>45); HDL CHOLESTEROL 49.6 MG/DL (>40); LDL CHOLESTEROL 110.6 MG/DL (<100); NON-HDL-C 158.4 MG/DL; POTASSIUM SERUM 4.6 MMOL/L (3.5-5.1); TOTAL PROTEIN 6.9 G/DL (5.7-8.2)
[2024-08-16 17:50] LABS: HEMOGLOBIN A1c 7.6 % (4.0-6.0); THYROID STIMULATING HORMONE 0.19 uIU/ML (0.55-4.78)
[2024-08-17 07:12] LABS: WHITE BLOOD COUNT 8.4 10^3/uL (4.0-10.0)
== END ==
LOC: M WUC 12:17
PROVIDERS: ATTEND Physician Assistant
DX: E11.3299 Type 2 diabetes mellitus with mild nonproliferative diabetic retinopathy without macular edema, unspecified eye (principal); E78.5 Hyperlipidemia, unspecified

== ENCOUNTER 2024-08-18 21:41 | Emergency (ER) | payer MEDICAID, MEDICARE, OTHER ==
[~2024-08-18] VITALS: Ht 167.6 cm; Wt 113.4 kg
[2024-08-18 21:45] VITALS: BP 147/82; TEMP 97.9
[2024-08-18] MEDS: NEOSPORIN OINT 0.9 GM PKT TOP ONE (23:53)
[2024-08-19] MEDS ORDERED: MIRA3350 PO (00:17)
[2024-08-19] MEDS ORDERED: OXYC1CAP2 PO (00:17)
[2024-08-19 00:24] VITALS: O2SAT 97
[2024-08-19] MEDS: oxyCODONE 5MG TAB PO ONE (00:24)
[2024-08-19] MEDS: ONDANSETRON 4MG ORAL DISINTEGRATING TAB PO ONE (00:24)
== END 2024-08-19 01:20 | disposition home or self-care (01) ==
LOC: M ED 21:41
DX: S80.02XA Contusion of left knee, initial encounter (principal); Y92.019 Unspecified place in single-family (private) house as the place of occurrence of the external cause; Y93.9 Activity, unspecified; Y99.9 Unspecified external cause status; W01.0XXA Fall on same level from slipping, tripping and stumbling without subsequent striking against object, initial encounter; I48.91 Unspecified atrial fibrillation; I10 Essential (primary) hypertension; E78.5 Hyperlipidemia, unspecified; E11.9 Type 2 diabetes mellitus without complications; Z88.5 Allergy status to narcotic agent; Z88.8 Allergy status to other drugs, medicaments and biological substances; Z79.51 Long term (current) use of inhaled steroids; Z79.01 Long term (current) use of anticoagulants; Z79.2 Long term (current) use of antibiotics; Z79.4 Long term (current) use of insulin; Z79.899 Other long term (current) drug therapy

== ENCOUNTER 2024-08-22 16:39 | Inpatient (IN) | payer MEDICARE ==
[~2024-08-22] VITALS: Ht 167.6 cm; Wt 122.3 kg
[~2024-08-22 16:39] MED LIST changes: +MIRA3350 PO; +OXYC1CAP2 PO
[2024-08-22 17:36] LABS: BASO % 0.1 % (0.0-1.0); EOS % 0.1 % (0.0-3.0); HEMATOCRIT 31.2 % (36.0-47.0); HEMOGLOBIN 9.6 g/dl (12.0-15.5); LYMPH % 6.5 % (24.0-44.0); MEAN CORPUSCULAR HEMOGLOBIN 29.4 pg (27.0-33.0); MEAN CORPUSCULAR HGB CONC 30.8 g/dl (32.0-36.5); MEAN CORPUSCULAR VOLUME 95.7 fl (80.0-96.0); MONO # 1.3 10^3/uL (0.0-0.8); MONO % 8.3 % (2.0-8.0); NEUTROPHILS # 13.4 10^3/uL (1.5-8.5); NEUTROPHILS % 83.9 % (36.0-66.0); PLATELET COUNT, AUTOMATED 279 10^3/uL (150-450); RED BLOOD COUNT 3.26 10^6/uL (4.00-5.40)
[2024-08-22 17:46] LABS: ERYTHROCYTE SEDIMENTATION RATE 18 mm/hr (0-30)
[2024-08-22 18:06] LABS: C REACTIVE PROTEIN QUANTITATIV < 0.50 MG/DL (<1.0)
[2024-08-22 18:07] LABS: ALBUMIN 3.1 G/DL (3.2-5.2); ALKALINE PHOSPHATASE 123 U/L (35-104); ALT/SGPT 111 U/L (7.0-40); AST/SGOT 70 U/L (<34); BILIRUBIN,DIRECT 0.3 MG/DL (<0.4); BILIRUBIN,TOTAL 0.6 MG/DL (0.3-1.2); BLOOD UREA NITROGEN 100 MG/DL (9-23); CALCIUM LEVEL 9.3 MG/DL (8.3-10.6); CARBON DIOXIDE LEVEL 24 MMOL/L (20-31); CHLORIDE LEVEL 103 MMOL/L (98-107); CREATININE FOR GFR 3.23 MG/DL (0.55-1.30); GLOMERULAR FILTRATION RATE 15.2 (>45); GLUCOSE, FASTING 219 MG/DL (74-106); POTASSIUM SERUM 4.6 MMOL/L (3.5-5.1); SODIUM LEVEL 139 MMOL/L (136-145); TOTAL PROTEIN 5.8 G/DL (5.7-8.2)
[2024-08-22] MEDS: CEFEPIME HCL 2 GM in DEXTROSE 5% (D5W) ADV/MINI-BAG 50 ML IV ONE (20:04)
[2024-08-22] MEDS: NS 500 ML IV ONE (20:04)
[2024-08-22] MEDS: ACETAMINOPHEN 325 MG TAB PO ONE (20:04)
[2024-08-22 20:07] LABS: INR 1.52; PARTIAL THROMBOPLASTIN TIME 23.9 SECONDS (24.8-34.2); PROTHROMBIN TIME 18.5 SECONDS (12.5-14.5)
[2024-08-22] MEDS ORDERED: DEXTROSE 50% 50ML SYRINGE IV PRN (21:45)
[2024-08-22] MEDS ORDERED: GLUCAGON INJ 1MG VIAL SC PRN (21:45)
[2024-08-22] MEDS ORDERED: GLUCOSE 4 GM CHEW PO PRN (21:45)
[2024-08-22] MEDS ORDERED: NALOXONE INJ 0.4MG/1ML VIAL IV PRN (21:55)
[2024-08-22 21:58] LABS: APPEARANCE, URINE HAZY (CLEAR); BACTERIA, URINE AUTO 1+ (NEGATIVE); BILIRUBIN, URINE AUTO NEGATIVE (NEGATIVE); BLOOD, URINE BLOOD NEGATIVE (NEGATIVE); COLOR, URINE YELLOW (YELLOW); GLUCOSE, URINE (UA) AUTO 3+ mg/dL (NEGATIVE); KETONE, URINE AUTO NEGATIVE (NEGATIVE); LEUKOCYTE ESTERASE, URINE AUTO 1+ (NEGATIVE); NITRITE, URINE AUTO NEGATIVE (NEGATIVE); PROTEIN, URINE AUTO NEGATIVE (NEGATIVE); RBC, URINE AUTO 1 /HPF (0-3); SPECIFIC GRAVITY URINE AUTO 1.014 (1.002-1.035); SQUAMOUS EPITHELIAL CELL UR AU 4 /HPF (0-6); UROBILINOGEN, URINE AUTO 0.2 mg/dL (0.0-2.0); WBC, URINE AUTO 1 /HPF (0-3)
[2024-08-22] MEDS ORDERED: GUAI100S51 PO (22:14)
[2024-08-22] MEDS ORDERED: COMBAER6 INH (22:14)
[2024-08-22] MEDS ORDERED: FURO20TA2 PO (22:14)
[2024-08-22] MEDS ORDERED: OXYC-517 PO (22:14)
[2024-08-22] MEDS ORDERED: HOME MED LIST COMPLETE! XX SCH (22:15)
[2024-08-22] MEDS ORDERED: BUSP5TA PO (22:17)
[2024-08-22 22:19] LABS: URIC ACID 7.3 MG/DL (3.1-7.8)
[2024-08-22 22:20] LABS: MAGNESIUM LEVEL 2.4 MG/DL (1.8-2.4)
[2024-08-22 22:22] LABS: C REACTIVE PROTEIN QUANTITATIV < 0.50 MG/DL (<1.0)
[2024-08-22 22:35] LABS: PROCALCITONIN 0.26 ng/ml
[2024-08-22 22:36] LABS: D-DIMER QUANT 0.36 ug/mL (<0.5)
[2024-08-22] MEDS ORDERED: FLUID PLACE HOLDER IV SCH (22:40)
[2024-08-22] MEDS ORDERED: VANCOMYCIN HCL IV SCH (22:40)
[2024-08-22 22:42] LABS: HEPATITIS B SURFACE ANTIGEN NEGATIVE (NEGATIVE)
[2024-08-22 22:52] LABS: PHOSPHORUS LEVEL 4.3 MG/DL (2.4-5.1)
[2024-08-22 23:02] LABS: HEPATITIS B CORE ANTIBODY IGM NEGATIVE (NEGATIVE); HEPATITIS C VIRUS ABY INDEX < 0.02 INDEX (<0.8)
[2024-08-22] MEDS ORDERED: VANCOMYCIN INTERMITTENT/PULSE DOSING BY CLINICAL PHARMACIST PER DOSING PROTOCOL XX SCH (23:10)
[2024-08-22] MEDS: NS (Normal Saline) 0.9% 1,000 ML IV SCH (23:33)
[2024-08-22] MEDS: VANCOMYCIN HCL 2,000 MG, VIAL MATE ADAPTER 1 EACH in NS 500 ML IV ONE (23:33)
[2024-08-23] MEDS: oxyCODONE 5MG TAB PO PRN (01:08)
[2024-08-23] MEDS ORDERED: ALBUTEROL 90 MCG/ACT 8GM HFA INHALER INH PRN (01:55)
[2024-08-23] MEDS ORDERED: COMBIVENT RESPIMAT 100-20MCG INHALER 4GM INH PRN (01:55)
[2024-08-23 06:12] LABS: HEMATOCRIT 26.3 % (36.0-47.0); HEMOGLOBIN 8.2 g/dl (12.0-15.5); MEAN CORPUSCULAR HEMOGLOBIN 29.8 pg (27.0-33.0); MEAN CORPUSCULAR HGB CONC 31.2 g/dl (32.0-36.5); MEAN CORPUSCULAR VOLUME 95.6 fl (80.0-96.0); PLATELET COUNT, AUTOMATED 180 10^3/uL (150-450); RED BLOOD COUNT 2.75 10^6/uL (4.00-5.40); WHITE BLOOD COUNT 10.9 10^3/uL (4.0-10.0)
[2024-08-23 07:43] LABS: ALBUMIN 2.6 G/DL (3.2-5.2); BILIRUBIN,TOTAL 0.4 MG/DL (0.3-1.2); CALCIUM LEVEL 8.4 MG/DL (8.3-10.6); CREATININE FOR GFR 2.69 MG/DL (0.55-1.30); GLOMERULAR FILTRATION RATE 18.7 (>45); MAGNESIUM LEVEL 2.3 MG/DL (1.8-2.4); POTASSIUM SERUM 4.6 MMOL/L (3.5-5.1); TOTAL PROTEIN 4.9 G/DL (5.7-8.2)
[2024-08-23] MEDS: CEFEPIME HCL 1 GM in DEXTROSE 5% (D5W) ADV/MINI-BAG 50 ML IV SCH (08:40)
[2024-08-23] MEDS: DOCUSATE SODIUM 100MG CAPSULE PO SCH (08:40)
[2024-08-23] MEDS: INSULIN LISPRO (NovoLOG) PER UNIT SC SCH ×2 (08:40→21:00)
[2024-08-23] MEDS: AMIODARONE 200 MG TAB (PACERONE) PO SCH (08:40)
[2024-08-23] MEDS: PANTOPRAZOLE 40MG TAB (PROTONIX) PO SCH (08:42)
[2024-08-23] MEDS: METOPROLOL TARTRATE 100MG TAB PO SCH (08:42)
[2024-08-23 09:00] VITALS: BP 111/56; TEMP 97.6; O2SAT 99
[2024-08-23] MEDS ORDERED: allopurinoL 100 MG TAB PO SCH (09:00)
[2024-08-23] MEDS ORDERED: APIXABAN 5 MG TAB (ELIQUIS) PO SCH (09:00)
[2024-08-23] MEDS ORDERED: POTASSIUM CHLORIDE 10MEQ SR TABLET PO SCH (09:00)
[2024-08-23] MEDS ORDERED: FUROSEMIDE 20 MG TAB PO SCH (09:00)
[2024-08-23] MEDS ORDERED: VANCOMYCIN HCL 1,000 MG, VIAL MATE ADAPTER 1 EACH in NS 250 ML IV SCH (09:50)
[2024-08-23] MEDS: EZETIMIBE 10MG TABLET (ZETIA) PO SCH (10:12)
[2024-08-23] MEDS: guaiFENesin DM *SUGAR FREE* 5ML**DIABETIC TUSSIN DM PO PRN (10:34)
[2024-08-23 10:37] LABS: VANCOMYCIN RANDOM 20.1 UG/ML
[2024-08-23] MEDS: guaiFENesin SYRUP 200MG 10ML UDC PO SCH (11:38)
[2024-08-23 12:20] VITALS: BP 107/59; TEMP 97.3; O2SAT 100
[2024-08-23] MEDS: IPRATROPIUM 0.5MG/ALBUTEROL 2.5MG INH SOL UD 3ML (DUONEB) NEB SCH (13:29)
[2024-08-23] MEDS: VANCOMYCIN HCL 500 MG in DEXTROSE 5% (D5W) MINI-BAG PLU 100 ML IV SCH (14:26)
[2024-08-23 15:15] VITALS: BP 104/53; TEMP 97.1; O2SAT 100
[2024-08-23] MEDS: SYMBICORT 160/4.5MCG INHALER 6GM INH SCH (19:52)
[2024-08-23 20:31] VITALS: BP 104/50; TEMP 97.5; O2SAT 100
[2024-08-23] MEDS: LEVEMIR (INSULIN DETEMIR) 1 UNITS/0.01ML SC SCH (21:39)
[2024-08-23 23:58] VITALS: BP 127/59; TEMP 98; O2SAT 100
[2024-08-24] VITALS (7 sets, daily range): BP systolic 94–152; BP diastolic 46–65; TEMP 97.5–99.1; O2SAT 96–100
[2024-08-24 06:21] LABS: HEMATOCRIT 24.9 % (36.0-47.0); HEMOGLOBIN 7.7 g/dl (12.0-15.5); MEAN CORPUSCULAR HEMOGLOBIN 29.5 pg (27.0-33.0); MEAN CORPUSCULAR HGB CONC 30.9 g/dl (32.0-36.5); MEAN CORPUSCULAR VOLUME 95.4 fl (80.0-96.0); PLATELET COUNT, AUTOMATED 173 10^3/uL (150-450); RED BLOOD COUNT 2.61 10^6/uL (4.00-5.40); WHITE BLOOD COUNT 7.5 10^3/uL (4.0-10.0)
[2024-08-24 06:43] LABS: C REACTIVE PROTEIN QUANTITATIV 1.1 MG/DL (<1.0)
[2024-08-24 06:44] LABS: ALBUMIN 2.5 G/DL (3.2-5.2); BILIRUBIN,TOTAL 0.7 MG/DL (0.3-1.2); CALCIUM LEVEL 8.3 MG/DL (8.3-10.6); CREATININE FOR GFR 2.23 MG/DL (0.55-1.30); GLOMERULAR FILTRATION RATE 23.3 (>45); MAGNESIUM LEVEL 2.3 MG/DL (1.8-2.4); POTASSIUM SERUM 4.3 MMOL/L (3.5-5.1); TOTAL PROTEIN 4.7 G/DL (5.7-8.2)
[2024-08-24] MEDS: TIOTROPIUM INHALER/CAPSULE (SPIRIVA) INH SCH (07:53)
[2024-08-24] MEDS ORDERED: VANCOMYCIN HCL 750 MG, VIAL MATE ADAPTER 1 EACH in NS 250 ML IV SCH (09:00)
[2024-08-24] MEDS: VANCOMYCIN HCL 750 MG, VIAL MATE ADAPTER 1 EACH in NS 250 ML IV SCH (10:24)
[2024-08-24 16:17] LABS: HEMATOCRIT 25.6 % (36.0-47.0); HEMOGLOBIN 7.7 g/dl (12.0-15.5); MEAN CORPUSCULAR HEMOGLOBIN 29.1 pg (27.0-33.0); MEAN CORPUSCULAR HGB CONC 30.1 g/dl (32.0-36.5); MEAN CORPUSCULAR VOLUME 96.6 fl (80.0-96.0); PLATELET COUNT, AUTOMATED 167 10^3/uL (150-450); RED BLOOD COUNT 2.65 10^6/uL (4.00-5.40); WHITE BLOOD COUNT 8.1 10^3/uL (4.0-10.0)
[2024-08-24 16:17] LABS: HEMATOCRIT 25.3 % (36.0-47.0); HEMOGLOBIN 7.8 g/dl (12.0-15.5)
[2024-08-24] MEDS: diphenhydrAMINE 25MG CAP PO PRN (16:50)
[2024-08-24] MEDS: LR 1,000 ML IV SCH (18:14)
[2024-08-24] MEDS: methocarbamoL 500 MG TAB PO PRN (21:03)
[2024-08-24] MEDS: busPIRone 5 MG TAB PO PRN (23:37)
[2024-08-25] VITALS (18 sets, daily range): BP systolic 103–141; BP diastolic 51–83; TEMP 96.7–98.3; O2SAT 75–100
[2024-08-25 07:12] LABS: HEMATOCRIT 24.4 % (36.0-47.0); HEMOGLOBIN 7.5 g/dl (12.0-15.5); MEAN CORPUSCULAR HEMOGLOBIN 29.5 pg (27.0-33.0); MEAN CORPUSCULAR HGB CONC 30.7 g/dl (32.0-36.5); MEAN CORPUSCULAR VOLUME 96.1 fl (80.0-96.0); PLATELET COUNT, AUTOMATED 160 10^3/uL (150-450); RED BLOOD COUNT 2.54 10^6/uL (4.00-5.40); WHITE BLOOD COUNT 6.9 10^3/uL (4.0-10.0)
[2024-08-25 07:46] LABS: ALBUMIN 2.2 G/DL (3.2-5.2); BILIRUBIN,TOTAL 0.9 MG/DL (0.3-1.2); CALCIUM LEVEL 8.4 MG/DL (8.3-10.6); CREATININE FOR GFR 1.57 MG/DL (0.55-1.30); GLOMERULAR FILTRATION RATE 34.9 (>45); MAGNESIUM LEVEL 2.2 MG/DL (1.8-2.4); POTASSIUM SERUM 4.4 MMOL/L (3.5-5.1); TOTAL PROTEIN 4.6 G/DL (5.7-8.2)
[2024-08-25] MEDS: VANCOMYCIN HCL 1,000 MG, VIAL MATE ADAPTER 1 EACH in NS 250 ML IV SCH (13:08)
[2024-08-26] VITALS (8 sets, daily range): BP systolic 90–134; BP diastolic 53–77; TEMP 97–98.8; O2SAT 94–100
[2024-08-26 06:42] LABS: HEMATOCRIT 23.8 % (36.0-47.0); HEMOGLOBIN 7.3 g/dl (12.0-15.5); MEAN CORPUSCULAR HEMOGLOBIN 29.7 pg (27.0-33.0); MEAN CORPUSCULAR HGB CONC 30.7 g/dl (32.0-36.5); MEAN CORPUSCULAR VOLUME 96.7 fl (80.0-96.0); PLATELET COUNT, AUTOMATED 168 10^3/uL (150-450); RED BLOOD COUNT 2.46 10^6/uL (4.00-5.40); WHITE BLOOD COUNT 6.1 10^3/uL (4.0-10.0)
[2024-08-26 06:52] LABS: ALBUMIN 2.1 G/DL (3.2-5.2); CALCIUM LEVEL 8.4 MG/DL (8.3-10.6); CREATININE FOR GFR 1.47 MG/DL (0.55-1.30); GLOMERULAR FILTRATION RATE 37.6 (>45); MAGNESIUM LEVEL 2.2 MG/DL (1.8-2.4); POTASSIUM SERUM 4.6 MMOL/L (3.5-5.1); TOTAL PROTEIN 4.6 G/DL (5.7-8.2)
[2024-08-26 06:53] LABS: C REACTIVE PROTEIN QUANTITATIV 3.83 MG/DL (<1.0)
[2024-08-26] MEDS: SENNA 8.6 MG TAB (SENOKOT) PO PRN (12:15)
[2024-08-26] MEDS: MIRALAX *UNIT DOSE* 17GM PACKET PO SCH (12:15)
[2024-08-26] MEDS: CEFDINIR 300 MG CAP (OMNICEF) PO SCH (22:26)
[2024-08-26] MEDS: DOXYCYCLINE HYCLATE 100MG TABLET PO SCH (22:26)
[2024-08-26] MEDS: MELATONIN 5 MG PO SCH (22:27)
[2024-08-26] MEDS: SALIVA SUBSTITUTE(MOUTHKOTE) BTL MT PRN (22:45)
[2024-08-26] MEDS: NYSTATIN 100,000 UNITS/GM TOPICAL PWD 15GM TOP PRN (22:50)
[2024-08-27] VITALS (8 sets, daily range): BP systolic 103–128; BP diastolic 52–86; TEMP 97.5–99.6; O2SAT 93–100
[2024-08-27 06:21] LABS: HEMATOCRIT 25.3 % (36.0-47.0); HEMOGLOBIN 7.7 g/dl (12.0-15.5); MEAN CORPUSCULAR HEMOGLOBIN 30.2 pg (27.0-33.0); MEAN CORPUSCULAR HGB CONC 30.4 g/dl (32.0-36.5); MEAN CORPUSCULAR VOLUME 99.2 fl (80.0-96.0); PLATELET COUNT, AUTOMATED 183 10^3/uL (150-450); RED BLOOD COUNT 2.55 10^6/uL (4.00-5.40); WHITE BLOOD COUNT 6.3 10^3/uL (4.0-10.0)
[2024-08-27] MEDS: GUAIFENESIN 200 MG/10 ML PO PRN (06:57)
[2024-08-27] MEDS: ACETAMINOPHEN 325 MG TAB PO PRN (09:19)
[2024-08-27 09:35] LABS: C REACTIVE PROTEIN QUANTITATIV 4.06 MG/DL (<1.0)
[2024-08-27 09:36] LABS: ALBUMIN 2.1 G/DL (3.2-5.2); CREATININE FOR GFR 1.5 MG/DL (0.55-1.30); GLOMERULAR FILTRATION RATE 36.8 (>45); MAGNESIUM LEVEL 2.2 MG/DL (1.8-2.4); POTASSIUM SERUM 4.8 MMOL/L (3.5-5.1); TOTAL PROTEIN 4.5 G/DL (5.7-8.2)
[2024-08-27] MEDS: oxyCODONE 5MG TAB PO PRN (22:50)
[2024-08-28] VITALS (7 sets, daily range): BP systolic 102–121; BP diastolic 51–93; TEMP 97.7–99.7; O2SAT 95–100
[2024-08-28 06:36] LABS: HEMATOCRIT 24.6 % (36.0-47.0); HEMOGLOBIN 7.4 g/dl (12.0-15.5); MEAN CORPUSCULAR HEMOGLOBIN 29.1 pg (27.0-33.0); MEAN CORPUSCULAR HGB CONC 30.1 g/dl (32.0-36.5); MEAN CORPUSCULAR VOLUME 96.9 fl (80.0-96.0); PLATELET COUNT, AUTOMATED 188 10^3/uL (150-450); RED BLOOD COUNT 2.54 10^6/uL (4.00-5.40); WHITE BLOOD COUNT 5.9 10^3/uL (4.0-10.0)
[2024-08-28 07:08] LABS: C REACTIVE PROTEIN QUANTITATIV 3.88 MG/DL (<1.0)
[2024-08-28 07:09] LABS: ALBUMIN 2.2 G/DL (3.2-5.2); BILIRUBIN,TOTAL 1.1 MG/DL (0.3-1.2); CREATININE FOR GFR 1.63 MG/DL (0.55-1.30); GLOMERULAR FILTRATION RATE 33.4 (>45); MAGNESIUM LEVEL 2.2 MG/DL (1.8-2.4); POTASSIUM SERUM 4.8 MMOL/L (3.5-5.1); TOTAL PROTEIN 4.7 G/DL (5.7-8.2)
[2024-08-28] MEDS ORDERED: oxyCODONE 5MG TAB PO PRN (11:45)
[2024-08-28] MEDS: ANALGESIC BALM CRM 3OZ TOP PRN (21:55)
[2024-08-28] MEDS: BENZONATATE 100MG CAPSULE PO PRN (22:03)
[2024-08-29] VITALS (7 sets, daily range): BP systolic 96–115; BP diastolic 51–70; TEMP 97.2–98.6; O2SAT 95–100
[2024-08-29 06:39] LABS: HEMOGLOBIN 7.7 g/dl (12.0-15.5); MEAN CORPUSCULAR HEMOGLOBIN 29.6 pg (27.0-33.0); MEAN CORPUSCULAR HGB CONC 29.6 g/dl (32.0-36.5); PLATELET COUNT, AUTOMATED 212 10^3/uL (150-450); WHITE BLOOD COUNT 6.1 10^3/uL (4.0-10.0)
[2024-08-29 07:09] LABS: C REACTIVE PROTEIN QUANTITATIV 3.35 MG/DL (<1.0)
[2024-08-29 07:11] LABS: ALBUMIN 2.2 G/DL (3.2-5.2); BILIRUBIN,TOTAL 1.2 MG/DL (0.3-1.2); CREATININE FOR GFR 1.75 MG/DL (0.55-1.30); GLOMERULAR FILTRATION RATE 30.8 (>45); MAGNESIUM LEVEL 2.2 MG/DL (1.8-2.4); TOTAL PROTEIN 4.7 G/DL (5.7-8.2)
[2024-08-29] MEDS: LIDOCAINE 5% (LIDODERM) PATCH TD PRN (08:30)
[2024-08-29] MEDS: FUROSEMIDE 40MG/4ML VIAL IV ONE (11:16)
[2024-08-29 16:33] LABS: CALCIUM LEVEL 8.1 MG/DL (8.3-10.6); CREATININE FOR GFR 1.78 MG/DL (0.55-1.30); GLOMERULAR FILTRATION RATE 30.2 (>45); POTASSIUM SERUM 4.8 MMOL/L (3.5-5.1)
[2024-08-29] MEDS: FUROSEMIDE injection 100 MG, VIAL 2 BAG 13MM ADAPTER 1 EACH in NS 100 ML IV SCH (23:30)
[2024-08-30 03:52] VITALS: BP 101/58; TEMP 98; O2SAT 98
[2024-08-30 06:58] LABS: HEMATOCRIT 27.5 % (36.0-47.0); HEMOGLOBIN 8.1 g/dl (12.0-15.5); MEAN CORPUSCULAR HEMOGLOBIN 29.8 pg (27.0-33.0); MEAN CORPUSCULAR HGB CONC 29.5 g/dl (32.0-36.5); MEAN CORPUSCULAR VOLUME 101.1 fl (80.0-96.0); PLATELET COUNT, AUTOMATED 214 10^3/uL (150-450); RED BLOOD COUNT 2.72 10^6/uL (4.00-5.40); WHITE BLOOD COUNT 7.1 10^3/uL (4.0-10.0)
[2024-08-30 07:16] LABS: C REACTIVE PROTEIN QUANTITATIV 2.85 MG/DL (<1.0)
[2024-08-30 07:18] LABS: ALBUMIN 2.3 G/DL (3.2-5.2); CALCIUM LEVEL 8.2 MG/DL (8.3-10.6); CREATININE FOR GFR 1.74 MG/DL (0.55-1.30); MAGNESIUM LEVEL 2.1 MG/DL (1.8-2.4); TOTAL PROTEIN 5.1 G/DL (5.7-8.2)
[2024-08-30 08:00] VITALS: BP 115/57; TEMP 97.7; O2SAT 100
[2024-08-30 12:00] VITALS: BP 108/51; TEMP 97.5; O2SAT 97
[2024-08-30] MEDS: FUROSEMIDE injection 100 MG, VIAL 2 BAG 13MM ADAPTER 1 EACH in D5W 100 ML IV SCH (12:00)
[2024-08-30 16:00] VITALS: BP 100/51; TEMP 97.6; O2SAT 100
[2024-08-30 19:42] VITALS: BP 120/62; TEMP 97.5; O2SAT 100
[2024-08-30] MEDS: FLEET ENEMA PR PRN (21:53)
[2024-08-30 23:27] VITALS: BP 94/58; TEMP 97.5; O2SAT 98
[2024-08-31] VITALS (13 sets, daily range): BP systolic 86–122; BP diastolic 46–66; TEMP 96.4–98.6; O2SAT 96–100
[2024-08-31] MEDS: MIDODRINE 5 MG TAB PO ONE ×2 (00:52→03:59)
[2024-08-31 07:32] LABS: C REACTIVE PROTEIN QUANTITATIV 3.22 MG/DL (<1.0)
[2024-08-31 07:48] LABS: ALBUMIN 2.3 G/DL (3.2-5.2); CREATININE FOR GFR 1.68 MG/DL (0.55-1.30); GLOMERULAR FILTRATION RATE 32.3 (>45); PHOSPHORUS LEVEL 2.7 MG/DL (2.4-5.1); POTASSIUM SERUM 4.6 MMOL/L (3.5-5.1)
[2024-08-31] MEDS: MIDODRINE 5 MG TAB PO SCH (12:05)
[2024-09-01 04:16] VITALS: BP 111/66; TEMP 97.9; O2SAT 97
[2024-09-01 08:00] VITALS: BP 116/56; TEMP 97.2; O2SAT 100
[2024-09-01 08:15] LABS: BASO % 0.1 % (0.0-1.0); EOS # 0.1 10^3/uL (0.0-0.5); EOS % 0.7 % (0.0-3.0); HEMATOCRIT 26.4 % (36.0-47.0); LYMPH # 0.6 10^3/uL (1.5-5.0); LYMPH % 8.1 % (24.0-44.0); MEAN CORPUSCULAR HEMOGLOBIN 29.6 pg (27.0-33.0); MEAN CORPUSCULAR HGB CONC 30.3 g/dl (32.0-36.5); MEAN CORPUSCULAR VOLUME 97.8 fl (80.0-96.0); MONO # 0.5 10^3/uL (0.0-0.8); MONO % 7.4 % (2.0-8.0); NEUTROPHILS # 5.7 10^3/uL (1.5-8.5); NEUTROPHILS % 83.3 % (36.0-66.0); PLATELET COUNT, AUTOMATED 239 10^3/uL (150-450); WHITE BLOOD COUNT 6.9 10^3/uL (4.0-10.0)
[2024-09-01 08:44] LABS: ALBUMIN 2.4 G/DL (3.2-5.2); C REACTIVE PROTEIN QUANTITATIV 2.76 MG/DL (<1.0); CALCIUM LEVEL 8.1 MG/DL (8.3-10.6); CREATININE FOR GFR 1.71 MG/DL (0.55-1.30); GLOMERULAR FILTRATION RATE 31.6 (>45); PHOSPHORUS LEVEL 2.8 MG/DL (2.4-5.1); POTASSIUM SERUM 4.5 MMOL/L (3.5-5.1)
[2024-09-01 12:00] VITALS: BP 147/62; TEMP 97.2; O2SAT 100
[2024-09-01 16:00] VITALS: BP 113/64; TEMP 97.1; O2SAT 100
[2024-09-01 20:35] VITALS: BP 107/50; TEMP 97.1; O2SAT 100
[2024-09-02 00:03] VITALS: BP 128/63; TEMP 96.8; O2SAT 100
[2024-09-02 03:53] VITALS: BP 136/63; TEMP 97.1; O2SAT 100
[2024-09-02 06:37] LABS: BASO % 0.2 % (0.0-1.0); EOS # 0.1 10^3/uL (0.0-0.5); EOS % 0.9 % (0.0-3.0); HEMATOCRIT 26.1 % (36.0-47.0); HEMOGLOBIN 7.9 g/dl (12.0-15.5); LYMPH # 0.4 10^3/uL (1.5-5.0); LYMPH % 7.7 % (24.0-44.0); MEAN CORPUSCULAR HEMOGLOBIN 29.4 pg (27.0-33.0); MEAN CORPUSCULAR HGB CONC 30.3 g/dl (32.0-36.5); MONO # 0.5 10^3/uL (0.0-0.8); MONO % 9.4 % (2.0-8.0); NEUTROPHILS # 4.3 10^3/uL (1.5-8.5); NEUTROPHILS % 81.2 % (36.0-66.0); PLATELET COUNT, AUTOMATED 232 10^3/uL (150-450); RED BLOOD COUNT 2.69 10^6/uL (4.00-5.40); WHITE BLOOD COUNT 5.3 10^3/uL (4.0-10.0)
[2024-09-02 06:57] LABS: ALBUMIN 2.2 G/DL (3.2-5.2); CALCIUM LEVEL 8.1 MG/DL (8.3-10.6); CREATININE FOR GFR 1.7 MG/DL (0.55-1.30); GLOMERULAR FILTRATION RATE 31.8 (>45); PHOSPHORUS LEVEL 2.9 MG/DL (2.4-5.1)
[2024-09-02 08:00] VITALS: BP 131/60; TEMP 96.1; O2SAT 100
[2024-09-02 12:00] VITALS: BP 126/64; TEMP 97.1; O2SAT 100
[2024-09-02 16:00] VITALS: BP 129/58; TEMP 97; O2SAT 99
[2024-09-02 20:00] VITALS: BP 124/59; TEMP 97.7; O2SAT 100
[2024-09-02] MEDS: APIXABAN 5 MG TAB (ELIQUIS) PO SCH (20:46)
[2024-09-03] VITALS: BP 94/53; TEMP 96.9; O2SAT 97
[2024-09-03 04:00] VITALS: BP 114/56; TEMP 97.1; O2SAT 100
[2024-09-03 07:22] LABS: EOS % 0.8 % (0.0-3.0); HEMATOCRIT 26.6 % (36.0-47.0); HEMOGLOBIN 8.1 g/dl (12.0-15.5); LYMPH # 0.5 10^3/uL (1.5-5.0); MEAN CORPUSCULAR HEMOGLOBIN 29.3 pg (27.0-33.0); MEAN CORPUSCULAR HGB CONC 30.5 g/dl (32.0-36.5); MEAN CORPUSCULAR VOLUME 96.4 fl (80.0-96.0); MONO # 0.4 10^3/uL (0.0-0.8); MONO % 8.8 % (2.0-8.0); NEUTROPHILS # 4.1 10^3/uL (1.5-8.5); NEUTROPHILS % 80.8 % (36.0-66.0); PLATELET COUNT, AUTOMATED 254 10^3/uL (150-450); RED BLOOD COUNT 2.76 10^6/uL (4.00-5.40)
[2024-09-03 08:17] LABS: ALBUMIN 2.3 G/DL (3.2-5.2); CALCIUM LEVEL 8.1 MG/DL (8.3-10.6); CREATININE FOR GFR 1.6 MG/DL (0.55-1.30)
[2024-09-03 08:53] VITALS: BP 117/56; TEMP 97.3; O2SAT 100
[2024-09-03] MEDS ORDERED: MIDO5TA PO (10:59)
[2024-09-03] MEDS ORDERED: LASI80TA3 PO (10:59)
[2024-09-03] MEDS ORDERED: CEFD1CAP9 PO (10:59)
[2024-09-03] MEDS ORDERED: DOXY100T27 PO (10:59)
[2024-09-03] MEDS: FUROSEMIDE 100MG/10ML VIAL IV ONE (13:44)
[2024-09-03] MEDS ORDERED: FUROSEMIDE 80 MG TAB PO SCH (17:00)
== END 2024-09-03 12:32 | disposition home health service (06) | DRG 602 ==
LOC: M ED 16:39 → M ED INP 21:41 → M MS4PR 08-23 15:04
PROVIDERS: ADMIT Student in an Organized Health Care Education/Training Program; ATTEND Internal Medicine
PROC: B246ZZZ Ultrasonography of Right and Left Heart (ICD-10-PCS; principal; 2024-09-01)
DX: L03.116 Cellulitis of left lower limb (principal); I50.33 Acute on chronic diastolic (congestive) heart failure; N17.9 Acute kidney failure, unspecified; I48.92 Unspecified atrial flutter; I13.0 Hypertensive heart and chronic kidney disease with heart failure and stage 1 through stage 4 chronic kidney disease, or unspecified chronic kidney disease; E87.1 Hypo-osmolality and hyponatremia; J98.11 Atelectasis; S80.02XA Contusion of left knee, initial encounter; Y92.019 Unspecified place in single-family (private) house as the place of occurrence of the external cause; Y93.9 Activity, unspecified; Y99.9 Unspecified external cause status; W01.0XXA Fall on same level from slipping, tripping and stumbling without subsequent striking against object, initial encounter; I48.91 Unspecified atrial fibrillation; E78.5 Hyperlipidemia, unspecified; E11.22 Type 2 diabetes mellitus with diabetic chronic kidney disease; N18.32 Chronic kidney disease, stage 3b; K75.81 Nonalcoholic steatohepatitis (NASH); G43.909 Migraine, unspecified, not intractable, without status migrainosus; J44.9 Chronic obstructive pulmonary disease, unspecified; G47.33 Obstructive sleep apnea (adult) (pediatric); F41.9 Anxiety disorder, unspecified; F32.A Depression, unspecified; K21.9 Gastro-esophageal reflux disease without esophagitis; M10.9 Gout, unspecified; D50.9 Iron deficiency anemia, unspecified; G47.00 Insomnia, unspecified; R05.3 Chronic cough; K59.00 Constipation, unspecified; L40.9 Psoriasis, unspecified; E04.2 Nontoxic multinodular goiter; I95.9 Hypotension, unspecified; L29.9 Pruritus, unspecified; L30.9 Dermatitis, unspecified; Z88.8 Allergy status to other drugs, medicaments and biological substances; Z87.891 Personal history of nicotine dependence; Z86.14 Personal history of Methicillin resistant Staphylococcus aureus infection; Z98.84 Bariatric surgery status; Z88.5 Allergy status to narcotic agent; Z79.51 Long term (current) use of inhaled steroids; Z79.01 Long term (current) use of anticoagulants; Z79.2 Long term (current) use of antibiotics; Z79.4 Long term (current) use of insulin; Z79.899 Other long term (current) drug therapy; Z79.891 Long term (current) use of opiate analgesic

== ENCOUNTER 2024-09-07 15:45 | Inpatient (IN) | payer MEDICARE ==
[~2024-09-07] VITALS: Ht 172.7 cm; Wt 116.0 kg
[~2024-09-07 15:45] MED LIST changes: +BUSP5TA PO; +COMBAER6 INH; +DOXY100T27 PO; +GUAI100S51 PO; +LASI80TA3 PO; +MIDO5TA PO; +OXYC-517 PO
[2024-09-07 17:19] LABS: BASO % 0.2 % (0.0-1.0); EOS % 0.8 % (0.0-3.0); HEMATOCRIT 30.8 % (36.0-47.0); HEMOGLOBIN 9.2 g/dl (12.0-15.5); LYMPH # 0.8 10^3/uL (1.5-5.0); LYMPH % 15.9 % (24.0-44.0); MEAN CORPUSCULAR HEMOGLOBIN 28.5 pg (27.0-33.0); MEAN CORPUSCULAR HGB CONC 29.9 g/dl (32.0-36.5); MEAN CORPUSCULAR VOLUME 95.4 fl (80.0-96.0); MONO # 0.5 10^3/uL (0.0-0.8); MONO % 11.4 % (2.0-8.0); NEUTROPHILS # 3.4 10^3/uL (1.5-8.5); NEUTROPHILS % 71.3 % (36.0-66.0); PLATELET COUNT, AUTOMATED 364 10^3/uL (150-450); RED BLOOD COUNT 3.23 10^6/uL (4.00-5.40); WHITE BLOOD COUNT 4.7 10^3/uL (4.0-10.0)
[2024-09-07 17:28] LABS: INR 1.21; PARTIAL THROMBOPLASTIN TIME 25.1 SECONDS (24.8-34.2); PROTHROMBIN TIME 15.6 SECONDS (12.5-14.5)
[2024-09-07 17:39] LABS: ALBUMIN 2.5 G/DL (3.2-5.2); BILIRUBIN,DIRECT 0.4 MG/DL (<0.4); CALCIUM LEVEL 8.4 MG/DL (8.3-10.6); CREATININE FOR GFR 1.67 MG/DL (0.55-1.30); GLOMERULAR FILTRATION RATE 32.4 (>45); POTASSIUM SERUM 4.1 MMOL/L (3.5-5.1); TOTAL PROTEIN 5.2 G/DL (5.7-8.2)
[2024-09-07] MEDS: MORPHINE 4 MG/ML 1ML VIAL IV ONE (18:29)
[2024-09-07 18:53] LABS: APPEARANCE, URINE CLEAR (CLEAR); BACTERIA, URINE AUTO NEGATIVE (NEGATIVE); BILIRUBIN, URINE AUTO NEGATIVE (NEGATIVE); BLOOD, URINE BLOOD NEGATIVE (NEGATIVE); COLOR, URINE YELLOW (YELLOW); GLUCOSE, URINE (UA) AUTO 3+ mg/dL (NEGATIVE); KETONE, URINE AUTO NEGATIVE (NEGATIVE); LEUKOCYTE ESTERASE, URINE AUTO NEGATIVE (NEGATIVE); NITRITE, URINE AUTO NEGATIVE (NEGATIVE); PROTEIN, URINE AUTO 1+ mg/dL (NEGATIVE); RBC, URINE AUTO 0 /HPF (0-3); SPECIFIC GRAVITY URINE AUTO 1.017 (1.002-1.035); SQUAMOUS EPITHELIAL CELL UR AU 2 /HPF (0-6); UROBILINOGEN, URINE AUTO 0.2 mg/dL (0.0-2.0); WBC, URINE AUTO 1 /HPF (0-3)
[2024-09-07] MEDS: PIPERACILLIN/TAZOBACTAM SOD 4.5 GM in DEXTROSE 5% (D5W) ADV/MINI-BAG 50 ML IV ONE (19:29)
[2024-09-07] MEDS ORDERED: DOXYCYCLINE HYCLATE 100MG TABLET PO ONE (22:00)
[2024-09-07] MEDS ORDERED: CEFDINIR 300 MG CAP (OMNICEF) PO ONE (22:00)
[2024-09-07] MEDS ORDERED: MIDO5TA PO (22:46)
[2024-09-07] MEDS ORDERED: FURO80TA2 PO (22:46)
[2024-09-07] MEDS ORDERED: HOME MED LIST COMPLETE! XX SCH (22:50)
[2024-09-07 23:04] VITALS: BP 136/80; TEMP 97.2; O2SAT 100
[2024-09-07] MEDS: DOXYCYCLINE HYCLATE 100MG TABLET PO SCH (23:54)
[2024-09-08] MEDS: NORCO, ANEXSIA 5/325MG TABLET (HYDROcodone/ACETAMINOPHEN) PO ONE (01:21)
[2024-09-08] MEDS ORDERED: COMBIVENT RESPIMAT 100-20MCG INHALER 4GM INH PRN (03:15)
[2024-09-08] MEDS ORDERED: ALBUTEROL 90 MCG/ACT 8GM HFA INHALER INH PRN (03:15)
[2024-09-08 04:08] VITALS: BP 130/73; TEMP 97.3; O2SAT 95
[2024-09-08 06:10] LABS: HEMATOCRIT 30.2 % (36.0-47.0); HEMOGLOBIN 9.3 g/dl (12.0-15.5); MEAN CORPUSCULAR HEMOGLOBIN 29.2 pg (27.0-33.0); MEAN CORPUSCULAR HGB CONC 30.8 g/dl (32.0-36.5); MEAN CORPUSCULAR VOLUME 94.7 fl (80.0-96.0); PLATELET COUNT, AUTOMATED 329 10^3/uL (150-450); RED BLOOD COUNT 3.19 10^6/uL (4.00-5.40); WHITE BLOOD COUNT 4.8 10^3/uL (4.0-10.0)
[2024-09-08 06:32] LABS: ALBUMIN 2.4 G/DL (3.2-5.2); BILIRUBIN,TOTAL 0.9 MG/DL (0.3-1.2); CALCIUM LEVEL 8.3 MG/DL (8.3-10.6); CREATININE FOR GFR 1.67 MG/DL (0.55-1.30); GLOMERULAR FILTRATION RATE 32.4 (>45); POTASSIUM SERUM 3.4 MMOL/L (3.5-5.1)
[2024-09-08 06:43] LABS: PROCALCITONIN 0.35 ng/ml
[2024-09-08] MEDS: MIDODRINE 5 MG TAB PO SCH (08:00)
[2024-09-08] MEDS: DAPAGLIFLOZIN PROPANEDIOL 10MG TABLET (FARXIGA) PO SCH (09:00)
[2024-09-08] MEDS: METOPROLOL TARTRATE 100MG TAB PO SCH (09:00)
[2024-09-08 09:27] VITALS: BP 149/86; TEMP 96.8; O2SAT 100
[2024-09-08] MEDS: PANTOPRAZOLE 40MG TAB (PROTONIX) PO SCH (09:30)
[2024-09-08] MEDS: POTASSIUM CHLORIDE 10MEQ SR TABLET PO SCH (09:30)
[2024-09-08] MEDS: AMIODARONE 200 MG TAB (PACERONE) PO SCH (09:30)
[2024-09-08] MEDS: CEFDINIR 300 MG CAP (OMNICEF) PO SCH (09:30)
[2024-09-08] MEDS: allopurinoL 100 MG TAB PO SCH (09:31)
[2024-09-08] MEDS: EZETIMIBE 10MG TABLET (ZETIA) PO SCH (09:31)
[2024-09-08] MEDS: FUROSEMIDE 80 MG TAB PO SCH (11:49)
[2024-09-08 12:00] VITALS: BP 147/87; TEMP 97.3; O2SAT 100
[2024-09-08] MEDS: busPIRone 5 MG TAB PO PRN (13:17)
[2024-09-08] MEDS ORDERED: DOXY100T PO (13:47)
[2024-09-08] MEDS ORDERED: ACET-683 PO (13:47)
[2024-09-08] MEDS ORDERED: METO1TAB87 PO (13:47)
[2024-09-08] MEDS ORDERED: CEFD300CAP PO (13:47)
[2024-09-08] MEDS: ACETAMINOPHEN 500 MG TAB PO PRN (14:04)
[2024-09-08] MEDS ORDERED: ELIQ5TAB PO (14:42)
== END 2024-09-08 16:06 | disposition home health service (06) | DRG 605 ==
LOC: M ED 15:45 → EDBD 15:45 → M ED INP 21:09 → M MSPAV 22:54
PROVIDERS: ADMIT Student in an Organized Health Care Education/Training Program; ATTEND Student in an Organized Health Care Education/Training Program
DX: S80.02XA Contusion of left knee, initial encounter (principal); I50.32 Chronic diastolic (congestive) heart failure; I48.92 Unspecified atrial flutter; I13.0 Hypertensive heart and chronic kidney disease with heart failure and stage 1 through stage 4 chronic kidney disease, or unspecified chronic kidney disease; Y92.019 Unspecified place in single-family (private) house as the place of occurrence of the external cause; Y93.9 Activity, unspecified; Y99.9 Unspecified external cause status; W01.0XXA Fall on same level from slipping, tripping and stumbling without subsequent striking against object, initial encounter; I48.91 Unspecified atrial fibrillation; E78.5 Hyperlipidemia, unspecified; E11.22 Type 2 diabetes mellitus with diabetic chronic kidney disease; N18.32 Chronic kidney disease, stage 3b; K75.81 Nonalcoholic steatohepatitis (NASH); G43.909 Migraine, unspecified, not intractable, without status migrainosus; J44.9 Chronic obstructive pulmonary disease, unspecified; G47.33 Obstructive sleep apnea (adult) (pediatric); F41.9 Anxiety disorder, unspecified; F32.A Depression, unspecified; K21.9 Gastro-esophageal reflux disease without esophagitis; M10.9 Gout, unspecified; G47.00 Insomnia, unspecified; L40.9 Psoriasis, unspecified; E04.2 Nontoxic multinodular goiter; Z88.8 Allergy status to other drugs, medicaments and biological substances; Z87.891 Personal history of nicotine dependence; Z86.14 Personal history of Methicillin resistant Staphylococcus aureus infection; Z98.84 Bariatric surgery status; Z88.5 Allergy status to narcotic agent; Z79.51 Long term (current) use of inhaled steroids; Z79.01 Long term (current) use of anticoagulants; Z79.2 Long term (current) use of antibiotics; Z79.4 Long term (current) use of insulin; Z79.899 Other long term (current) drug therapy; Z79.891 Long term (current) use of opiate analgesic

== ENCOUNTER 2024-09-09 01:29 | Emergency (ER) | payer MEDICARE ==
[~2024-09-09] VITALS: Ht 167.6 cm; Wt 115.9 kg
[~2024-09-09 01:29] MED LIST changes: +ACET-683 PO; +CEFD300CAP PO; +DOXY100T PO; +FURO80TA2 PO; +METO1TAB87 PO
[2024-09-09 01:52] VITALS: TEMP 99.1
[2024-09-09] MEDS ORDERED: PILL CUTTER 1 EACH XX ONE (02:51)
[2024-09-09] MEDS: oxyCODONE 5MG TAB PO ONE (02:54)
[2024-09-09 04:17] VITALS: BP 123/58
[2024-09-09 05:29] VITALS: O2SAT 99
== END 2024-09-09 08:29 | disposition home or self-care (01) ==
LOC: M ED 01:29 → EDBD 01:29 → M ED 08:29
DX: S80.02XA Contusion of left knee, initial encounter (principal); Y92.9 Unspecified place or not applicable; Y93.9 Activity, unspecified; Y99.9 Unspecified external cause status; I10 Essential (primary) hypertension; I48.92 Unspecified atrial flutter; K21.9 Gastro-esophageal reflux disease without esophagitis; J44.9 Chronic obstructive pulmonary disease, unspecified; G40.909 Epilepsy, unspecified, not intractable, without status epilepticus; Z88.5 Allergy status to narcotic agent; Z88.8 Allergy status to other drugs, medicaments and biological substances; Z79.1 Long term (current) use of non-steroidal anti-inflammatories (NSAID); Z79.51 Long term (current) use of inhaled steroids; Z79.01 Long term (current) use of anticoagulants; Z79.2 Long term (current) use of antibiotics; Z79.4 Long term (current) use of insulin; Z79.899 Other long term (current) drug therapy

== ENCOUNTER 2024-09-30 00:39 | Emergency (ER) | payer MEDICARE ==
[~2024-09-30] VITALS: Ht 167.6 cm; Wt 107.2 kg
[2024-09-30 01:38] LABS: BASO % 0.4 % (0.0-1.0); EOS % 0.4 % (0.0-3.0); HEMATOCRIT 36.4 % (36.0-47.0); LYMPH # 0.8 10^3/uL (1.5-5.0); LYMPH % 15.4 % (24.0-44.0); MEAN CORPUSCULAR HEMOGLOBIN 29.2 pg (27.0-33.0); MEAN CORPUSCULAR HGB CONC 30.2 g/dl (32.0-36.5); MEAN CORPUSCULAR VOLUME 96.6 fl (80.0-96.0); MONO # 0.4 10^3/uL (0.0-0.8); MONO % 7.9 % (2.0-8.0); NEUTROPHILS # 3.7 10^3/uL (1.5-8.5); NEUTROPHILS % 75.5 % (36.0-66.0); PLATELET COUNT, AUTOMATED 257 10^3/uL (150-450); RED BLOOD COUNT 3.77 10^6/uL (4.00-5.40); WHITE BLOOD COUNT 4.9 10^3/uL (4.0-10.0)
[2024-09-30 02:23] LABS: BLOOD UREA NITROGEN 39 MG/DL (9-23); CALCIUM LEVEL 8.4 MG/DL (8.3-10.6); CARBON DIOXIDE LEVEL 26 MMOL/L (20-31); CHLORIDE LEVEL 104 MMOL/L (98-107); CK-MB VALUE MASS < 1.0 NG/ML (<3.6); CPK CREATINE PHOSPHOKINASE 27 U/L (34-145); GLOMERULAR FILTRATION RATE 22.4 (>45); GLUCOSE, FASTING 235 MG/DL (74-106); POTASSIUM SERUM 3.8 MMOL/L (3.5-5.1); SODIUM LEVEL 142 MMOL/L (136-145)
[2024-09-30 03:17] LABS: CK-MB VALUE MASS < 1.0 NG/ML (<3.6)
[2024-09-30 03:18] LABS: CPK CREATINE PHOSPHOKINASE 24 U/L (34-145); MB/CK RELATIVE INDEX 4.16 (< OR =4)
[2024-09-30] MEDS: NS 500 ML IV ONE (03:26)
[2024-09-30 05:50] LABS: CALCIUM LEVEL 8.6 MG/DL (8.3-10.6); CREATININE FOR GFR 2.24 MG/DL (0.55-1.30); GLOMERULAR FILTRATION RATE 23.1 (>45); POTASSIUM SERUM 3.7 MMOL/L (3.5-5.1)
[2024-09-30 08:34] VITALS: BP 129/70; TEMP 98.2; O2SAT 97
== END 2024-09-30 08:40 | disposition home or self-care (01) ==
LOC: EDBD 00:39 → M ED 00:39
DX: R07.89 Other chest pain (principal); E86.0 Dehydration; B34.1 Enterovirus infection, unspecified; I25.2 Old myocardial infarction; I50.22 Chronic systolic (congestive) heart failure; I11.0 Hypertensive heart disease with heart failure; E78.5 Hyperlipidemia, unspecified; E11.9 Type 2 diabetes mellitus without complications; K21.9 Gastro-esophageal reflux disease without esophagitis; F32.A Depression, unspecified; Z79.1 Long term (current) use of non-steroidal anti-inflammatories (NSAID); Z79.51 Long term (current) use of inhaled steroids; Z79.01 Long term (current) use of anticoagulants; Z79.2 Long term (current) use of antibiotics; Z79.4 Long term (current) use of insulin; Z79.899 Other long term (current) drug therapy

== ENCOUNTER 2024-10-08 04:38 | Inpatient (IN) | payer MEDICARE ==
[~2024-10-08] VITALS: Ht 167.6 cm; Wt 115.0 kg
[2024-10-08 05:15] LABS: BASO % 0.2 % (0.0-1.0); EOS % 0.5 % (0.0-3.0); HEMATOCRIT 38.1 % (36.0-47.0); HEMOGLOBIN 11.6 g/dl (12.0-15.5); LYMPH # 1.1 10^3/uL (1.5-5.0); LYMPH % 13.8 % (24.0-44.0); MEAN CORPUSCULAR HEMOGLOBIN 28.9 pg (27.0-33.0); MEAN CORPUSCULAR HGB CONC 30.4 g/dl (32.0-36.5); MEAN CORPUSCULAR VOLUME 94.8 fl (80.0-96.0); MONO # 0.7 10^3/uL (0.0-0.8); MONO % 7.8 % (2.0-8.0); NEUTROPHILS # 6.4 10^3/uL (1.5-8.5); NEUTROPHILS % 77.3 % (36.0-66.0); PLATELET COUNT, AUTOMATED 345 10^3/uL (150-450); RED BLOOD COUNT 4.02 10^6/uL (4.00-5.40); WHITE BLOOD COUNT 8.3 10^3/uL (4.0-10.0)
[2024-10-08 05:48] LABS: ALBUMIN 2.8 G/DL (3.2-5.2); ALKALINE PHOSPHATASE 130 U/L (35-104); ALT/SGPT 54 U/L (7.0-40); AST/SGOT 116 U/L (<34); BILIRUBIN,DIRECT 0.4 MG/DL (<0.4); BILIRUBIN,TOTAL 0.9 MG/DL (0.3-1.2); BLOOD UREA NITROGEN 24 MG/DL (9-23); CALCIUM LEVEL 8.8 MG/DL (8.3-10.6); CARBON DIOXIDE LEVEL 22 MMOL/L (20-31); CHLORIDE LEVEL 104 MMOL/L (98-107); CK-MB VALUE MASS < 1.0 NG/ML (<3.6); CREATININE FOR GFR 1.89 MG/DL (0.55-1.30); GLOMERULAR FILTRATION RATE 28.1 (>45); GLUCOSE, FASTING 130 MG/DL (74-106); POTASSIUM SERUM 4.4 MMOL/L (3.5-5.1); SODIUM LEVEL 139 MMOL/L (136-145); TOTAL PROTEIN 5.5 G/DL (5.7-8.2)
[2024-10-08 05:50] LABS: CPK CREATINE PHOSPHOKINASE 68 U/L (34-145); MB/CK RELATIVE INDEX 1.47 (< OR =4); THYROID STIMULATING HORMONE 0.698 uIU/ML (0.55-4.78)
[2024-10-08 07:38] LABS: KETONE, URINE AUTO RFX NEGATIVE (NEGATIVE); LEUKOCYTE ESTERASE UR AUTO RFX NEGATIVE (NEGATIVE); MUCUS, URINE RFX SMALL (NEGATIVE); NITRITE, URINE AUTO RFX NEGATIVE (NEGATIVE); RBC, URINE AUTO RFX 1 /HPF (0-3); SQUAM EPITHELIAL CELL UR AURFX 1 /HPF (0-6); WBC, URINE AUTO RFX 0 /HPF (0-3)
[2024-10-08] MEDS: NS 500 ML IV ONE (07:45)
[2024-10-08] MEDS: IPRATROPIUM 0.5MG/ALBUTEROL 2.5MG INH SOL UD 3ML (DUONEB) NEB ONE (08:57)
[2024-10-08] MEDS ORDERED: KETOROLAC 30 MG/ML 1ML VIAL IV ONE (10:30)
[2024-10-08] MEDS: HYDROMORPHONE HCL 0.5 MG/ 0.5 ML SYRINGE IV ONE (10:35)
[2024-10-08] MEDS ORDERED: MED REC IN PROGRESS XX SCH (10:50)
[2024-10-08] MEDS: ACETAMINOPHEN *IV* 1,000 MG in IV 1 EA IV ONE (10:53)
[2024-10-08] MEDS: ONDANSETRON 4MG 2ML VIAL IV PRN (10:53)
[2024-10-08] MEDS: traMADol 50 MG TAB PO PRN (10:53)
[2024-10-08] MEDS: SCOPOLAMINE 1MG TRANSDERMAL PATCH TOP ONE (10:53)
[2024-10-08] MEDS: MIDODRINE 5 MG TAB PO ONE (10:53)
[2024-10-08 10:54] LABS: C REACTIVE PROTEIN QUANTITATIV 1.76 MG/DL (<1.0)
[2024-10-08 11:10] LABS: ERYTHROCYTE SEDIMENTATION RATE 54 mm/hr (0-30)
[2024-10-08] MEDS ORDERED: METO1TAB32 PO (11:32)
[2024-10-08] MEDS ORDERED: TRAM50TA2 PO (11:32)
[2024-10-08] MEDS ORDERED: HOME MED LIST COMPLETE! XX SCH (11:35)
[2024-10-08 13:15] VITALS: BP 116/70; TEMP 97.9; O2SAT 100
[2024-10-08] MEDS: LR 1,000 ML IV ONE (14:07)
[2024-10-08] MEDS: traMADol 50 MG TAB PO ONE (14:08)
[2024-10-08] MEDS ORDERED: guaiFENesin SYRUP 200MG 10ML UDC PO PRN (14:25)
[2024-10-08] MEDS: busPIRone 5 MG TAB PO ONE (14:34)
[2024-10-08] MEDS: PERCOCET 5MG/325MG TAB PO ONE (14:35)
[2024-10-08] MEDS: FUROSEMIDE 80 MG TAB PO SCH (17:20)
[2024-10-08] MEDS: MIDODRINE 5 MG TAB PO SCH (17:20)
[2024-10-08] MEDS ORDERED: ACETAMINOPHEN 500 MG TAB PO SCH (18:00)
[2024-10-08 20:00] VITALS: BP 115/69; TEMP 97.7; O2SAT 100
[2024-10-08] MEDS: AMIODARONE 200 MG TAB (PACERONE) PO SCH (20:02)
[2024-10-08] MEDS: APIXABAN 5 MG TAB (ELIQUIS) PO SCH (20:02)
[2024-10-08] MEDS: PERCOCET 5MG/325MG TAB PO PRN (20:03)
[2024-10-09 04:00] VITALS: BP 137/83; TEMP 97.3; O2SAT 98
[2024-10-09 06:26] LABS: BASO % 0.3 % (0.0-1.0); EOS # 0.1 10^3/uL (0.0-0.5); EOS % 1.9 % (0.0-3.0); HEMATOCRIT 34.6 % (36.0-47.0); HEMOGLOBIN 10.2 g/dl (12.0-15.5); LYMPH # 0.7 10^3/uL (1.5-5.0); LYMPH % 12.7 % (24.0-44.0); MEAN CORPUSCULAR HEMOGLOBIN 28.9 pg (27.0-33.0); MEAN CORPUSCULAR HGB CONC 29.5 g/dl (32.0-36.5); MONO # 0.4 10^3/uL (0.0-0.8); MONO % 7.5 % (2.0-8.0); NEUTROPHILS # 4.4 10^3/uL (1.5-8.5); NEUTROPHILS % 77.3 % (36.0-66.0); PLATELET COUNT, AUTOMATED 263 10^3/uL (150-450); RED BLOOD COUNT 3.53 10^6/uL (4.00-5.40); WHITE BLOOD COUNT 5.7 10^3/uL (4.0-10.0)
[2024-10-09 07:04] LABS: CALCIUM LEVEL 8.6 MG/DL (8.3-10.6); CREATININE FOR GFR 2.53 MG/DL (0.55-1.30); GLOMERULAR FILTRATION RATE 20.1 (>45); MAGNESIUM LEVEL 1.8 MG/DL (1.8-2.4); POTASSIUM SERUM 4.1 MMOL/L (3.5-5.1)
[2024-10-09] MEDS: POTASSIUM CHLORIDE 10MEQ SR TABLET PO SCH (07:57)
[2024-10-09] MEDS: METOPROLOL SUCC *XL* 25MG TAB (TopROL *XL*) PO SCH (07:57)
[2024-10-09] MEDS: allopurinoL 100 MG TAB PO SCH (07:58)
[2024-10-09] MEDS: PANTOPRAZOLE 40MG TAB (PROTONIX) PO SCH (07:58)
[2024-10-09] MEDS: DAPAGLIFLOZIN PROPANEDIOL 10MG TABLET (FARXIGA) PO SCH (07:58)
[2024-10-09] MEDS: EZETIMIBE 10MG TABLET (ZETIA) PO SCH (08:03)
[2024-10-09] MEDS: COMBIVENT RESPIMAT 100-20MCG INHALER 4GM INH PRN (08:34)
[2024-10-09] MEDS: NS (Normal Saline) 0.9% 1,000 ML IV ONE (11:47)
[2024-10-09 11:51] VITALS: BP 138/81
[2024-10-09] MEDS: guaiFENesin ER TABLET 600 MG TAB PO ONE (16:41)
[2024-10-09] MEDS: CEPACOL LOZENGE PO ONE (16:41)
[2024-10-09 16:43] VITALS: BP 133/82
[2024-10-09 16:54] LABS: CALCIUM LEVEL 8.4 MG/DL (8.3-10.6); CREATININE FOR GFR 2.43 MG/DL (0.55-1.30); POTASSIUM SERUM 4.1 MMOL/L (3.5-5.1)
[2024-10-10] MEDS: CEPACOL LOZENGE PO PRN (02:55)
[2024-10-10 03:00] VITALS: BP 122/62; TEMP 97.7; O2SAT 96
[2024-10-10 06:09] LABS: BASO % 0.4 % (0.0-1.0); EOS # 0.1 10^3/uL (0.0-0.5); EOS % 1.9 % (0.0-3.0); HEMATOCRIT 33.9 % (36.0-47.0); HEMOGLOBIN 10.2 g/dl (12.0-15.5); LYMPH # 0.8 10^3/uL (1.5-5.0); LYMPH % 12.1 % (24.0-44.0); MEAN CORPUSCULAR HEMOGLOBIN 29.4 pg (27.0-33.0); MEAN CORPUSCULAR HGB CONC 30.1 g/dl (32.0-36.5); MEAN CORPUSCULAR VOLUME 97.7 fl (80.0-96.0); MONO # 0.5 10^3/uL (0.0-0.8); MONO % 7.1 % (2.0-8.0); NEUTROPHILS # 5.4 10^3/uL (1.5-8.5); NEUTROPHILS % 78.1 % (36.0-66.0); PLATELET COUNT, AUTOMATED 256 10^3/uL (150-450); RED BLOOD COUNT 3.47 10^6/uL (4.00-5.40); WHITE BLOOD COUNT 6.9 10^3/uL (4.0-10.0)
[2024-10-10 06:44] LABS: CALCIUM LEVEL 8.3 MG/DL (8.3-10.6); CREATININE FOR GFR 2.17 MG/DL (0.55-1.30); GLOMERULAR FILTRATION RATE 23.9 (>45); MAGNESIUM LEVEL 1.7 MG/DL (1.8-2.4); POTASSIUM SERUM 4.1 MMOL/L (3.5-5.1)
[2024-10-10] MEDS: LR 1,000 ML IV ONE (06:49)
[2024-10-10] MEDS: MAG SULF 1GM/100ML (MAG RUN) 1 GM in IV 1 EA IV SCH (09:31)
[2024-10-10] MEDS: LR 1,000 ML IV SCH ×2 (09:35→20:29)
[2024-10-10 12:00] VITALS: BP 121/63; TEMP 98.1; O2SAT 96
[2024-10-10 14:26] VITALS: BP 119/82
[2024-10-10 17:32] LABS: CALCIUM LEVEL 8.3 MG/DL (8.3-10.6); CREATININE FOR GFR 1.98 MG/DL (0.55-1.30); GLOMERULAR FILTRATION RATE 26.6 (>45); POTASSIUM SERUM 4.3 MMOL/L (3.5-5.1)
[2024-10-10 18:21] VITALS: BP 111/65
[2024-10-10 19:32] VITALS: BP 112/63; TEMP 97.9; O2SAT 96
[2024-10-11] MEDS: RAMELTEON 8 MG TAB (ROZEREM) PO ONE (01:29)
[2024-10-11] MEDS: BENZONATATE 100MG CAPSULE PO ONE (01:29)
[2024-10-11 03:49] VITALS: BP 122/67; TEMP 97.7; O2SAT 94
[2024-10-11 05:58] LABS: BASO % 0.3 % (0.0-1.0); EOS # 0.1 10^3/uL (0.0-0.5); EOS % 1.1 % (0.0-3.0); HEMATOCRIT 34.7 % (36.0-47.0); HEMOGLOBIN 10.4 g/dl (12.0-15.5); LYMPH # 0.8 10^3/uL (1.5-5.0); LYMPH % 10.7 % (24.0-44.0); MEAN CORPUSCULAR HEMOGLOBIN 28.7 pg (27.0-33.0); MEAN CORPUSCULAR VOLUME 95.6 fl (80.0-96.0); MONO # 0.6 10^3/uL (0.0-0.8); MONO % 8.6 % (2.0-8.0); NEUTROPHILS # 5.6 10^3/uL (1.5-8.5); PLATELET COUNT, AUTOMATED 262 10^3/uL (150-450); RED BLOOD COUNT 3.63 10^6/uL (4.00-5.40); WHITE BLOOD COUNT 7.1 10^3/uL (4.0-10.0)
[2024-10-11 06:35] LABS: CALCIUM LEVEL 8.1 MG/DL (8.3-10.6); CREATININE FOR GFR 1.77 MG/DL (0.55-1.30); GLOMERULAR FILTRATION RATE 30.3 (>45); POTASSIUM SERUM 4.3 MMOL/L (3.5-5.1)
[2024-10-11 12:00] VITALS: BP 110/60; TEMP 98.1; O2SAT 87
[2024-10-11 15:30] LABS: HEMATOCRIT 34.7 % (36.0-47.0); HEMOGLOBIN 10.5 g/dl (12.0-15.5); MEAN CORPUSCULAR HGB CONC 30.3 g/dl (32.0-36.5); MEAN CORPUSCULAR VOLUME 95.9 fl (80.0-96.0); PLATELET COUNT, AUTOMATED 296 10^3/uL (150-450); RED BLOOD COUNT 3.62 10^6/uL (4.00-5.40); WHITE BLOOD COUNT 7.4 10^3/uL (4.0-10.0)
[2024-10-11 15:57] LABS: CALCIUM LEVEL 8.2 MG/DL (8.3-10.6); CREATININE FOR GFR 1.66 MG/DL (0.55-1.30); GLOMERULAR FILTRATION RATE 32.6 (>45); POTASSIUM SERUM 4.7 MMOL/L (3.5-5.1)
[2024-10-11 18:45] VITALS: BP 103/76
[2024-10-11 19:54] VITALS: BP 103/73; TEMP 97.9; O2SAT 94
[2024-10-11] MEDS: PERCOCET 5MG/325MG TAB PO PRN (21:02)
[2024-10-12 04:12] VITALS: BP 105/72; TEMP 97.9; O2SAT 94
[2024-10-12 05:55] LABS: BASO % 0.3 % (0.0-1.0); EOS # 0.2 10^3/uL (0.0-0.5); HEMOGLOBIN 10.6 g/dl (12.0-15.5); LYMPH # 0.8 10^3/uL (1.5-5.0); LYMPH % 13.7 % (24.0-44.0); MEAN CORPUSCULAR HEMOGLOBIN 29.1 pg (27.0-33.0); MEAN CORPUSCULAR HGB CONC 30.3 g/dl (32.0-36.5); MEAN CORPUSCULAR VOLUME 96.2 fl (80.0-96.0); MONO # 0.5 10^3/uL (0.0-0.8); MONO % 8.5 % (2.0-8.0); NEUTROPHILS # 4.2 10^3/uL (1.5-8.5); NEUTROPHILS % 73.8 % (36.0-66.0); PLATELET COUNT, AUTOMATED 273 10^3/uL (150-450); RED BLOOD COUNT 3.64 10^6/uL (4.00-5.40); WHITE BLOOD COUNT 5.8 10^3/uL (4.0-10.0)
[2024-10-12 06:29] LABS: CALCIUM LEVEL 8.4 MG/DL (8.3-10.6); CREATININE FOR GFR 1.75 MG/DL (0.55-1.30); GLOMERULAR FILTRATION RATE 30.7 (>45); MAGNESIUM LEVEL 1.9 MG/DL (1.8-2.4); POTASSIUM SERUM 4.5 MMOL/L (3.5-5.1)
[2024-10-12] MEDS: BENZONATATE 100MG CAPSULE PO SCH (08:38)
[2024-10-12 12:00] VITALS: BP 129/73; TEMP 97.5; O2SAT 98
[2024-10-12 17:31] VITALS: BP 123/62
[2024-10-12] MEDS ORDERED: CEPACOL LOZENGE PO PRN (17:35)
[2024-10-12 19:39] VITALS: BP 108/64; TEMP 97.3; O2SAT 97
[2024-10-12] MEDS ORDERED: NYSTATIN 100,000 UNITS/GM TOPICAL PWD 15GM TOP SCH (21:00)
[2024-10-13 03:23] VITALS: BP 117/72; TEMP 97.9; O2SAT 94
[2024-10-13 06:01] LABS: BASO % 0.3 % (0.0-1.0); EOS # 0.1 10^3/uL (0.0-0.5); EOS % 1.4 % (0.0-3.0); HEMATOCRIT 34.2 % (36.0-47.0); HEMOGLOBIN 10.1 g/dl (12.0-15.5); LYMPH # 0.6 10^3/uL (1.5-5.0); LYMPH % 9.4 % (24.0-44.0); MEAN CORPUSCULAR HEMOGLOBIN 28.5 pg (27.0-33.0); MEAN CORPUSCULAR HGB CONC 29.5 g/dl (32.0-36.5); MEAN CORPUSCULAR VOLUME 96.3 fl (80.0-96.0); MONO # 0.6 10^3/uL (0.0-0.8); MONO % 8.9 % (2.0-8.0); NEUTROPHILS # 5.1 10^3/uL (1.5-8.5); NEUTROPHILS % 79.4 % (36.0-66.0); PLATELET COUNT, AUTOMATED 283 10^3/uL (150-450); RED BLOOD COUNT 3.55 10^6/uL (4.00-5.40); WHITE BLOOD COUNT 6.4 10^3/uL (4.0-10.0)
[2024-10-13 06:23] LABS: CREATININE FOR GFR 1.78 MG/DL (0.55-1.30); GLOMERULAR FILTRATION RATE 30.1 (>45); MAGNESIUM LEVEL 1.8 MG/DL (1.8-2.4); POTASSIUM SERUM 4.4 MMOL/L (3.5-5.1)
[2024-10-14 03:00] VITALS: BP 145/78; TEMP 97.7; O2SAT 95
[2024-10-14 06:00] LABS: BASO % 0.3 % (0.0-1.0); EOS # 0.1 10^3/uL (0.0-0.5); EOS % 0.6 % (0.0-3.0); HEMATOCRIT 36.3 % (36.0-47.0); HEMOGLOBIN 10.7 g/dl (12.0-15.5); LYMPH # 0.6 10^3/uL (1.5-5.0); MEAN CORPUSCULAR HEMOGLOBIN 28.8 pg (27.0-33.0); MEAN CORPUSCULAR HGB CONC 29.5 g/dl (32.0-36.5); MEAN CORPUSCULAR VOLUME 97.6 fl (80.0-96.0); MONO # 0.6 10^3/uL (0.0-0.8); MONO % 6.9 % (2.0-8.0); NEUTROPHILS # 7.7 10^3/uL (1.5-8.5); NEUTROPHILS % 84.6 % (36.0-66.0); PLATELET COUNT, AUTOMATED 312 10^3/uL (150-450); RED BLOOD COUNT 3.72 10^6/uL (4.00-5.40)
[2024-10-14] MEDS: methocarbamoL 750 MG TAB PO PRN (06:12)
[2024-10-14 06:20] LABS: CALCIUM LEVEL 8.4 MG/DL (8.3-10.6); CREATININE FOR GFR 1.65 MG/DL (0.55-1.30); GLOMERULAR FILTRATION RATE 32.8 (>45); MAGNESIUM LEVEL 1.9 MG/DL (1.8-2.4)
[2024-10-14] MEDS: busPIRone 5 MG TAB PO PRN (15:29)
[2024-10-14 17:03] LABS: HEMATOCRIT 34.1 % (36.0-47.0); HEMOGLOBIN 10.2 g/dl (12.0-15.5); MEAN CORPUSCULAR HEMOGLOBIN 29.3 pg (27.0-33.0); MEAN CORPUSCULAR HGB CONC 29.9 g/dl (32.0-36.5); PLATELET COUNT, AUTOMATED 282 10^3/uL (150-450); RED BLOOD COUNT 3.48 10^6/uL (4.00-5.40)
[2024-10-15 03:10] VITALS: BP 124/82; TEMP 98.1; O2SAT 96
[2024-10-15 06:05] LABS: BASO % 0.2 % (0.0-1.0); EOS % 0.1 % (0.0-3.0); HEMATOCRIT 35.3 % (36.0-47.0); HEMOGLOBIN 10.5 g/dl (12.0-15.5); LYMPH # 0.5 10^3/uL (1.5-5.0); LYMPH % 3.7 % (24.0-44.0); MEAN CORPUSCULAR HEMOGLOBIN 28.6 pg (27.0-33.0); MEAN CORPUSCULAR HGB CONC 29.7 g/dl (32.0-36.5); MEAN CORPUSCULAR VOLUME 96.2 fl (80.0-96.0); MONO # 0.7 10^3/uL (0.0-0.8); MONO % 4.8 % (2.0-8.0); NEUTROPHILS # 13.1 10^3/uL (1.5-8.5); NEUTROPHILS % 90.4 % (36.0-66.0); PLATELET COUNT, AUTOMATED 323 10^3/uL (150-450); RED BLOOD COUNT 3.67 10^6/uL (4.00-5.40); WHITE BLOOD COUNT 14.4 10^3/uL (4.0-10.0)
[2024-10-15 06:24] LABS: CALCIUM LEVEL 8.4 MG/DL (8.3-10.6); CREATININE FOR GFR 2.06 MG/DL (0.55-1.30); GLOMERULAR FILTRATION RATE 25.4 (>45); MAGNESIUM LEVEL 1.8 MG/DL (1.8-2.4); POTASSIUM SERUM 4.9 MMOL/L (3.5-5.1)
[2024-10-15] MEDS: carisoprodoL 350 MG TAB PO ONE (12:49)
[2024-10-15] MEDS: traMADol 50 MG TAB PO ONE (12:50)
[2024-10-15] MEDS: NYSTATIN 100,000 UNITS/GM TOPICAL PWD 15GM TOP PRN (12:51)
[2024-10-15] MEDS: ACETAMINOPHEN 500 MG TAB PO SCH (20:55)
[2024-10-15] MEDS: traMADol 50 MG TAB PO SCH (20:57)
[2024-10-15 21:00] VITALS: BP 123/55; TEMP 99.4; O2SAT 96
[2024-10-15 23:55] VITALS: BP 109/57; TEMP 98.2; O2SAT 96
[2024-10-16] MEDS ORDERED: FLUID PLACE HOLDER IV SCH (01:15)
[2024-10-16] MEDS ORDERED: VANCOMYCIN HCL IV SCH (01:15)
[2024-10-16 01:43] LABS: BASO % 0.2 % (0.0-1.0); EOS % 0.2 % (0.0-3.0); HEMATOCRIT 31.7 % (36.0-47.0); HEMOGLOBIN 9.6 g/dl (12.0-15.5); LYMPH # 1.1 10^3/uL (1.5-5.0); LYMPH % 8.5 % (24.0-44.0); MEAN CORPUSCULAR HEMOGLOBIN 29.2 pg (27.0-33.0); MEAN CORPUSCULAR HGB CONC 30.3 g/dl (32.0-36.5); MEAN CORPUSCULAR VOLUME 96.4 fl (80.0-96.0); MONO # 0.9 10^3/uL (0.0-0.8); MONO % 6.7 % (2.0-8.0); NEUTROPHILS % 83.8 % (36.0-66.0); PLATELET COUNT, AUTOMATED 312 10^3/uL (150-450); RED BLOOD COUNT 3.29 10^6/uL (4.00-5.40); WHITE BLOOD COUNT 13.1 10^3/uL (4.0-10.0)
[2024-10-16 01:51] LABS: ERYTHROCYTE SEDIMENTATION RATE 38 mm/hr (0-30)
[2024-10-16 02:06] LABS: ALBUMIN 2.1 G/DL (3.2-5.2); BILIRUBIN,TOTAL 0.7 MG/DL (0.3-1.2); C REACTIVE PROTEIN QUANTITATIV 12.66 MG/DL (<1.0); CALCIUM LEVEL 8.3 MG/DL (8.3-10.6); CREATININE FOR GFR 2.12 MG/DL (0.55-1.30); GLOMERULAR FILTRATION RATE 24.6 (>45); MAGNESIUM LEVEL 1.8 MG/DL (1.8-2.4); POTASSIUM SERUM 5.2 MMOL/L (3.5-5.1); TOTAL PROTEIN 4.6 G/DL (5.7-8.2)
[2024-10-16] MEDS: VANCOMYCIN HCL 2,000 MG, VIAL MATE ADAPTER 1 EACH in NS 500 ML IV ONE (02:31)
[2024-10-16 04:00] VITALS: BP 107/89; TEMP 97.8; O2SAT 96
[2024-10-16] MEDS: NS (Normal Saline) 0.9% 1,000 ML IV SCH (04:35)
[2024-10-16] MEDS: ALBUTEROL SULFATE 2.5MG/0.5ML INH NEB SOLN NEB PRN (05:10)
[2024-10-16] MEDS: LIDOCAINE 5% (LIDODERM) PATCH TD SCH (09:25)
[2024-10-16] MEDS: CEFEPIME HCL 1 GM in DEXTROSE 5% (D5W) ADV/MINI-BAG 50 ML IV SCH (12:41)
[2024-10-16 13:00] VITALS: BP 121/66; TEMP 97.9; O2SAT 95
[2024-10-16] MEDS: VANCOMYCIN HCL 750 MG, VIAL MATE ADAPTER 1 EACH in NS 250 ML IV SCH (18:35)
[2024-10-16 18:36] VITALS: BP 130/70
[2024-10-16 20:22] VITALS: BP 112/60; TEMP 97.9; O2SAT 96
[2024-10-17 03:10] VITALS: BP 110/62; TEMP 97.5; O2SAT 100
[2024-10-17 05:59] LABS: BASO % 0.4 % (0.0-1.0); EOS # 0.1 10^3/uL (0.0-0.5); EOS % 1.4 % (0.0-3.0); HEMATOCRIT 33.4 % (36.0-47.0); HEMOGLOBIN 10.1 g/dl (12.0-15.5); LYMPH # 0.9 10^3/uL (1.5-5.0); LYMPH % 10.6 % (24.0-44.0); MEAN CORPUSCULAR HEMOGLOBIN 28.9 pg (27.0-33.0); MEAN CORPUSCULAR HGB CONC 30.2 g/dl (32.0-36.5); MEAN CORPUSCULAR VOLUME 95.7 fl (80.0-96.0); MONO # 0.6 10^3/uL (0.0-0.8); MONO % 7.4 % (2.0-8.0); NEUTROPHILS # 6.8 10^3/uL (1.5-8.5); NEUTROPHILS % 79.6 % (36.0-66.0); PLATELET COUNT, AUTOMATED 326 10^3/uL (150-450); RED BLOOD COUNT 3.49 10^6/uL (4.00-5.40); WHITE BLOOD COUNT 8.5 10^3/uL (4.0-10.0)
[2024-10-17 06:21] LABS: C REACTIVE PROTEIN QUANTITATIV 10.17 MG/DL (<1.0)
[2024-10-17 06:23] LABS: ALBUMIN 2.1 G/DL (3.2-5.2); BILIRUBIN,TOTAL 0.6 MG/DL (0.3-1.2); CALCIUM LEVEL 8.4 MG/DL (8.3-10.6); CREATININE FOR GFR 1.84 MG/DL (0.55-1.30); POTASSIUM SERUM 4.8 MMOL/L (3.5-5.1); TOTAL PROTEIN 4.8 G/DL (5.7-8.2)
[2024-10-17 12:00] VITALS: BP 116/65; TEMP 97.9; O2SAT 99
[2024-10-17] MEDS: guaiFENesin SYRUP 200MG 10ML UDC PO PRN (17:17)
[2024-10-17] MEDS: ALBUTEROL SULFATE 2.5MG/0.5ML INH NEB SOLN NEB SCH (20:00)
[2024-10-17 21:30] VITALS: BP 115/63; TEMP 97.5; O2SAT 97
[2024-10-18 03:20] VITALS: BP 126/89; TEMP 97.3; O2SAT 100
[2024-10-18 12:00] VITALS: BP 124/72; TEMP 97.5; O2SAT 100
[2024-10-18 13:53] LABS: HEMATOCRIT 36.1 % (36.0-47.0); HEMOGLOBIN 10.8 g/dl (12.0-15.5); MEAN CORPUSCULAR HEMOGLOBIN 29.3 pg (27.0-33.0); MEAN CORPUSCULAR HGB CONC 29.9 g/dl (32.0-36.5); MEAN CORPUSCULAR VOLUME 97.8 fl (80.0-96.0); PLATELET COUNT, AUTOMATED 358 10^3/uL (150-450); RED BLOOD COUNT 3.69 10^6/uL (4.00-5.40); WHITE BLOOD COUNT 6.6 10^3/uL (4.0-10.0)
[2024-10-18 14:24] LABS: CALCIUM LEVEL 8.1 MG/DL (8.3-10.6); CREATININE FOR GFR 1.57 MG/DL (0.55-1.30); GLOMERULAR FILTRATION RATE 34.8 (>45); POTASSIUM SERUM 4.7 MMOL/L (3.5-5.1)
[2024-10-18] MEDS: ALBUTEROL SULFATE 2.5MG/0.5ML INH NEB SOLN NEB SCH (14:48)
[2024-10-18 17:34] VITALS: BP 131/73
[2024-10-18 20:20] VITALS: BP 128/71; TEMP 97.7; O2SAT 95
[2024-10-19 03:00] VITALS: BP 110/65; TEMP 97.5; O2SAT 100
[2024-10-19 05:57] LABS: BASO % 0.4 % (0.0-1.0); EOS # 0.1 10^3/uL (0.0-0.5); EOS % 1.7 % (0.0-3.0); HEMATOCRIT 34.7 % (36.0-47.0); HEMOGLOBIN 10.3 g/dl (12.0-15.5); LYMPH # 0.8 10^3/uL (1.5-5.0); LYMPH % 11.9 % (24.0-44.0); MEAN CORPUSCULAR HEMOGLOBIN 29.1 pg (27.0-33.0); MEAN CORPUSCULAR HGB CONC 29.7 g/dl (32.0-36.5); MONO # 0.6 10^3/uL (0.0-0.8); MONO % 8.5 % (2.0-8.0); NEUTROPHILS # 5.4 10^3/uL (1.5-8.5); NEUTROPHILS % 76.6 % (36.0-66.0); PLATELET COUNT, AUTOMATED 310 10^3/uL (150-450); RED BLOOD COUNT 3.54 10^6/uL (4.00-5.40)
[2024-10-19 06:16] LABS: CALCIUM LEVEL 8.1 MG/DL (8.3-10.6); CREATININE FOR GFR 1.48 MG/DL (0.55-1.30); GLOMERULAR FILTRATION RATE 37.2 (>45); POTASSIUM SERUM 5.3 MMOL/L (3.5-5.1)
[2024-10-19] MEDS: VANCOMYCIN HCL 1,000 MG, VIAL MATE ADAPTER 1 EACH in NS 250 ML IV SCH (09:09)
[2024-10-19 12:00] VITALS: BP 112/83; TEMP 97.3; O2SAT 99
[2024-10-20 03:03] VITALS: BP 122/70; TEMP 97.5; O2SAT 98
[2024-10-20 05:47] LABS: HEMATOCRIT 31.5 % (36.0-47.0); HEMOGLOBIN 9.7 g/dl (12.0-15.5); MEAN CORPUSCULAR HEMOGLOBIN 29.7 pg (27.0-33.0); MEAN CORPUSCULAR HGB CONC 30.8 g/dl (32.0-36.5); MEAN CORPUSCULAR VOLUME 96.3 fl (80.0-96.0); PLATELET COUNT, AUTOMATED 296 10^3/uL (150-450); RED BLOOD COUNT 3.27 10^6/uL (4.00-5.40); WHITE BLOOD COUNT 6.2 10^3/uL (4.0-10.0)
[2024-10-20 06:05] LABS: CALCIUM LEVEL 7.9 MG/DL (8.3-10.6); CREATININE FOR GFR 1.41 MG/DL (0.55-1.30); GLOMERULAR FILTRATION RATE 39.4 (>45); POTASSIUM SERUM 4.8 MMOL/L (3.5-5.1)
[2024-10-20 12:00] VITALS: BP 128/78; TEMP 97.7; O2SAT 99
[2024-10-20] MEDS: GLYCERIN ADULT SUPP PR ONE (16:57)
[2024-10-20 22:00] VITALS: BP 125/72; TEMP 97.7; O2SAT 94
[2024-10-21 04:36] VITALS: BP 121/71; TEMP 97.5; O2SAT 97
[2024-10-21 06:27] VITALS: BP 131/82; TEMP 97.5; O2SAT 99
[2024-10-21 08:51] LABS: ALBUMIN 2.1 G/DL (3.2-5.2); BILIRUBIN,TOTAL 0.5 MG/DL (0.3-1.2); CALCIUM LEVEL 8.5 MG/DL (8.3-10.6); CREATININE FOR GFR 1.36 MG/DL (0.55-1.30); TOTAL PROTEIN 4.9 G/DL (5.7-8.2)
[2024-10-21] MEDS: VANCOMYCIN HCL 750 MG, VIAL MATE ADAPTER 1 EACH in NS 250 ML IV SCH (10:00)
[2024-10-21 12:00] VITALS: BP 126/81; TEMP 97.4; O2SAT 98
[2024-10-21] MEDS: PATIROMER SORBITEX CALCIUM 8.4 GM POWDER PACKET (VELTASSA) PO ONE (12:20)
[2024-10-21] MEDS: PIPERACILLIN/TAZOBACTAM SOD 4.5 GM in DEXTROSE 5% (D5W) ADV/MINI-BAG 50 ML IV SCH (12:21)
[2024-10-21 15:19] LABS: HEMATOCRIT 33.9 % (36.0-47.0); MEAN CORPUSCULAR HEMOGLOBIN 28.7 pg (27.0-33.0); MEAN CORPUSCULAR HGB CONC 29.5 g/dl (32.0-36.5); MEAN CORPUSCULAR VOLUME 97.4 fl (80.0-96.0); PLATELET COUNT, AUTOMATED 316 10^3/uL (150-450); RED BLOOD COUNT 3.48 10^6/uL (4.00-5.40); WHITE BLOOD COUNT 6.7 10^3/uL (4.0-10.0)
[2024-10-21 20:20] VITALS: BP 99/52; TEMP 97.2; O2SAT 99
[2024-10-21 23:49] VITALS: BP 118/72
[2024-10-22 04:34] VITALS: BP 103/54; TEMP 97.3; O2SAT 98
[2024-10-22 05:10] VITALS: BP 110/70
[2024-10-22 05:48] LABS: BASO % 0.5 % (0.0-1.0); EOS # 0.1 10^3/uL (0.0-0.5); EOS % 2.2 % (0.0-3.0); HEMATOCRIT 31.8 % (36.0-47.0); HEMOGLOBIN 9.3 g/dl (12.0-15.5); LYMPH # 0.7 10^3/uL (1.5-5.0); LYMPH % 10.6 % (24.0-44.0); MEAN CORPUSCULAR HEMOGLOBIN 28.4 pg (27.0-33.0); MEAN CORPUSCULAR HGB CONC 29.2 g/dl (32.0-36.5); MONO # 0.6 10^3/uL (0.0-0.8); MONO % 9.3 % (2.0-8.0); NEUTROPHILS # 4.9 10^3/uL (1.5-8.5); NEUTROPHILS % 76.3 % (36.0-66.0); PLATELET COUNT, AUTOMATED 321 10^3/uL (150-450); RED BLOOD COUNT 3.28 10^6/uL (4.00-5.40); WHITE BLOOD COUNT 6.4 10^3/uL (4.0-10.0)
[2024-10-22 06:14] LABS: C REACTIVE PROTEIN QUANTITATIV 1.24 MG/DL (<1.0); CREATININE FOR GFR 1.56 MG/DL (0.55-1.30); POTASSIUM SERUM 4.8 MMOL/L (3.5-5.1)
[2024-10-22 12:00] VITALS: BP 152/78; TEMP 97.5; O2SAT 100
[2024-10-22 20:12] VITALS: BP 124/63; TEMP 97.7; O2SAT 100
[2024-10-23 03:12] VITALS: BP 123/63; TEMP 97.3; O2SAT 98
[2024-10-23 06:28] LABS: BASO % 0.5 % (0.0-1.0); EOS # 0.1 10^3/uL (0.0-0.5); HEMATOCRIT 33.6 % (36.0-47.0); LYMPH # 0.8 10^3/uL (1.5-5.0); LYMPH % 13.9 % (24.0-44.0); MEAN CORPUSCULAR HEMOGLOBIN 28.7 pg (27.0-33.0); MEAN CORPUSCULAR HGB CONC 29.8 g/dl (32.0-36.5); MEAN CORPUSCULAR VOLUME 96.6 fl (80.0-96.0); MONO # 0.5 10^3/uL (0.0-0.8); MONO % 8.8 % (2.0-8.0); NEUTROPHILS # 4.3 10^3/uL (1.5-8.5); NEUTROPHILS % 74.3 % (36.0-66.0); PLATELET COUNT, AUTOMATED 354 10^3/uL (150-450); RED BLOOD COUNT 3.48 10^6/uL (4.00-5.40); WHITE BLOOD COUNT 5.8 10^3/uL (4.0-10.0)
[2024-10-23 07:00] LABS: ALBUMIN 2.1 G/DL (3.2-5.2); BILIRUBIN,TOTAL 0.5 MG/DL (0.3-1.2); CALCIUM LEVEL 8.3 MG/DL (8.3-10.6); CREATININE FOR GFR 1.5 MG/DL (0.55-1.30); FERRITIN 103.8 NG/ML (7.3-270.7); GLOMERULAR FILTRATION RATE 36.7 (>45); POTASSIUM SERUM 4.3 MMOL/L (3.5-5.1); TOTAL PROTEIN 4.9 G/DL (5.7-8.2)
[2024-10-23 07:01] LABS: C REACTIVE PROTEIN QUANTITATIV 0.84 MG/DL (<1.0)
[2024-10-23] MEDS: FUROSEMIDE 40 MG TAB PO SCH (11:13)
[2024-10-23 12:00] VITALS: BP 112/64; TEMP 97.5; O2SAT 96
[2024-10-23 17:05] VITALS: BP 141/79
[2024-10-23] MEDS ORDERED: GLUCAGON INJ 1MG VIAL SC PRN (17:20)
[2024-10-23] MEDS ORDERED: GLUCOSE 4 GM CHEW PO PRN (17:20)
[2024-10-23] MEDS ORDERED: DEXTROSE 50% 50ML SYRINGE IV PRN (17:20)
[2024-10-23] MEDS: INSULIN LISPRO (NovoLOG) PER UNIT SC SCH ×2 (18:02→21:00)
[2024-10-23 20:00] VITALS: BP 141/78; TEMP 97.7; O2SAT 96
[2024-10-24 04:00] VITALS: BP 153/82; TEMP 97.5; O2SAT 96
[2024-10-24 09:17] LABS: CALCIUM LEVEL 8.3 MG/DL (8.3-10.6); CREATININE FOR GFR 1.72 MG/DL (0.55-1.30); GLOMERULAR FILTRATION RATE 31.3 (>45); POTASSIUM SERUM 4.4 MMOL/L (3.5-5.1)
[2024-10-24 12:00] VITALS: BP 122/73; TEMP 97.5; O2SAT 98
[2024-10-24 12:36] VITALS: BP 122/73
[2024-10-24 18:08] VITALS: BP 136/74
[2024-10-24 19:58] VITALS: BP 103/64; TEMP 97.7; O2SAT 97
[2024-10-25 03:31] VITALS: BP 104/63; TEMP 97.7; O2SAT 98
[2024-10-25 09:51] LABS: CALCIUM LEVEL 8.1 MG/DL (8.3-10.6); CREATININE FOR GFR 1.67 MG/DL (0.55-1.30); GLOMERULAR FILTRATION RATE 32.4 (>45); MAGNESIUM LEVEL 1.7 MG/DL (1.8-2.4); POTASSIUM SERUM 4.4 MMOL/L (3.5-5.1)
[2024-10-25 12:00] VITALS: BP 114/65; TEMP 97.7; O2SAT 96
[2024-10-25 19:45] VITALS: BP 136/74; TEMP 97.7; O2SAT 96
[2024-10-25] MEDS: MAGNESIUM OXIDE 400MG TAB (MAG-OX) PO SCH (20:15)
[2024-10-26 04:06] VITALS: BP 133/72; TEMP 97.5; O2SAT 95
[2024-10-26] MEDS ORDERED: BISACODYL 10MG SUPP PR PRN (06:35)
[2024-10-26 07:45] LABS: CALCIUM LEVEL 8.2 MG/DL (8.3-10.6); CREATININE FOR GFR 1.61 MG/DL (0.55-1.30); GLOMERULAR FILTRATION RATE 33.8 (>45); MAGNESIUM LEVEL 1.9 MG/DL (1.8-2.4); POTASSIUM SERUM 4.3 MMOL/L (3.5-5.1)
[2024-10-26] MEDS: SENOKOT S TAB PO SCH (09:00)
[2024-10-26 12:00] VITALS: BP 121/65; TEMP 97.7; O2SAT 98
[2024-10-26 18:11] VITALS: BP 143/80
[2024-10-26 19:40] VITALS: BP 120/69; TEMP 97.3; O2SAT 99
[2024-10-27 04:00] VITALS: BP 121/70; TEMP 97.9; O2SAT 100
[2024-10-27 04:29] LABS: BASO % 0.6 % (0.0-1.0); EOS % 0.6 % (0.0-3.0); HEMATOCRIT 31.6 % (36.0-47.0); HEMOGLOBIN 9.7 g/dl (12.0-15.5); LYMPH # 0.9 10^3/uL (1.5-5.0); LYMPH % 14.8 % (24.0-44.0); MEAN CORPUSCULAR HEMOGLOBIN 29.7 pg (27.0-33.0); MEAN CORPUSCULAR HGB CONC 30.7 g/dl (32.0-36.5); MEAN CORPUSCULAR VOLUME 96.6 fl (80.0-96.0); MONO # 0.5 10^3/uL (0.0-0.8); MONO % 8.2 % (2.0-8.0); NEUTROPHILS # 4.7 10^3/uL (1.5-8.5); NEUTROPHILS % 75.2 % (36.0-66.0); PLATELET COUNT, AUTOMATED 317 10^3/uL (150-450); RED BLOOD COUNT 3.27 10^6/uL (4.00-5.40); WHITE BLOOD COUNT 6.2 10^3/uL (4.0-10.0)
[2024-10-27 04:52] LABS: CK-MB VALUE MASS < 1.0 NG/ML (<3.6)
[2024-10-27 04:53] LABS: CPK CREATINE PHOSPHOKINASE 27 U/L (34-145)
[2024-10-27 05:05] LABS: CALCIUM LEVEL 8.3 MG/DL (8.3-10.6); CREATININE FOR GFR 1.58 MG/DL (0.55-1.30); GLOMERULAR FILTRATION RATE 34.5 (>45); POTASSIUM SERUM 4.3 MMOL/L (3.5-5.1)
[2024-10-27 05:08] VITALS: BP 139/72; TEMP 97.9; O2SAT 98
[2024-10-27 12:00] VITALS: BP 130/77; TEMP 98.1; O2SAT 98
[2024-10-27] MEDS ORDERED: SENOKOT S TAB PO PRN (16:20)
[2024-10-27 20:39] VITALS: BP 135/75; TEMP 97.5; O2SAT 98
[2024-10-28] VITALS (9 sets, daily range): BP systolic 128–159; BP diastolic 71–95; TEMP 97.2–97.9; O2SAT 93–99
[2024-10-28 06:22] LABS: CALCIUM LEVEL 8.2 MG/DL (8.3-10.6); CREATININE FOR GFR 1.49 MG/DL (0.55-1.30); GLOMERULAR FILTRATION RATE 36.9 (>45); POTASSIUM SERUM 4.1 MMOL/L (3.5-5.1)
[2024-10-28] MEDS ORDERED: LIDOCAINE 2% 100MG/5ML SDV (FOR ANES.) As Ordered ONE (12:31)
[2024-10-28] MEDS ORDERED: MIDAZOLAM INJ 2MG/2ML VIAL As Ordered ONE (12:31)
[2024-10-28] MEDS ORDERED: propofoL 200 MG/20 ML VIAL As Ordered ONE (12:31)
[2024-10-28] MEDS ORDERED: fentaNYL 100 MCG/2 ML INJECTION As Ordered ONE (12:31)
[2024-10-28] MEDS ORDERED: ONDANSETRON 4MG 2ML VIAL As Ordered ONE (12:33)
[2024-10-28] MEDS ORDERED: dexmedeTOMIDine (4MCG/ML)200MCG/50ML BTL (PRECEDEX) As Ordered ONE (12:33)
[2024-10-28] MEDS: BACITRACIN OINTMENT 30GM TUBE As Ordered ONE (14:20)
[2024-10-28] MEDS ORDERED: ePHEDrine SULFATE 25 MG/5 ML(5MG/ML) SYRINGE As Ordered ONE (15:18)
[2024-10-28] MEDS ORDERED: PHENYLephrine 500MCG 5ML (100MCG/ML) SYRINGE As Ordered ONE (15:18)
[2024-10-28] MEDS: EPINEPHrine INJ 1 MG/ML 1ML AMP As Ordered ONE (15:20)
[2024-10-28] MEDS: GENTAMICIN SULF 80MG/2ML VIAL As Ordered ONE (15:30)
[2024-10-28] MEDS ORDERED: ACETAMINOPHEN 1000MG/100ML IV BAG As Ordered ONE (15:34)
[2024-10-28] MEDS ORDERED: fentaNYL 100 MCG/2 ML INJECTION IV PRN (16:00)
[2024-10-28] MEDS ORDERED: HYDROMORPHONE HCL 0.5 MG/ 0.5 ML SYRINGE IV PRN (16:00)
[2024-10-28] MEDS: LR 1,000 ML IV SCH (16:00)
[2024-10-28] MEDS ORDERED: oxyCODONE 5MG TAB PO PRN (16:00)
[2024-10-28] MEDS ORDERED: ONDANSETRON 4MG 2ML VIAL IV PRN (16:00)
[2024-10-29] MEDS: busPIRone 5 MG TAB PO PRN (00:11)
[2024-10-29 02:15] VITALS: BP 116/65; TEMP 97.3; O2SAT 96
[2024-10-29 05:15] VITALS: BP 124/76; TEMP 97.2; O2SAT 94
[2024-10-29 06:02] LABS: BASO % 0.3 % (0.0-1.0); LYMPH # 0.6 10^3/uL (1.5-5.0); MEAN CORPUSCULAR HGB CONC 30.3 g/dl (32.0-36.5); MEAN CORPUSCULAR VOLUME 95.7 fl (80.0-96.0); MONO # 0.3 10^3/uL (0.0-0.8); MONO % 5.4 % (2.0-8.0); NEUTROPHILS % 83.8 % (36.0-66.0); PLATELET COUNT, AUTOMATED 355 10^3/uL (150-450); RED BLOOD COUNT 3.45 10^6/uL (4.00-5.40); WHITE BLOOD COUNT 5.9 10^3/uL (4.0-10.0)
[2024-10-29 06:29] LABS: CALCIUM LEVEL 8.5 MG/DL (8.3-10.6); CREATININE FOR GFR 1.72 MG/DL (0.55-1.30); GLOMERULAR FILTRATION RATE 31.3 (>45); MAGNESIUM LEVEL 2.2 MG/DL (1.8-2.4); POTASSIUM SERUM 4.5 MMOL/L (3.5-5.1)
[2024-10-29] MEDS: LACTOBACILLUS ACIDOPHILUS CAP (BACID) PO SCH (08:21)
[2024-10-29 09:20] VITALS: BP 119/72; TEMP 97.3; O2SAT 95
[2024-10-29] MEDS ORDERED: MULTIVITAMIN -ADULT INJECTION 10 ML, THIAMINE INJection 100 MG, FOLIC ACID 1 MG in NS (... IV STA (10:42)
[2024-10-29 13:15] VITALS: BP 118/67; TEMP 97.3; O2SAT 97
[2024-10-29 20:15] VITALS: BP 118/63; TEMP 97.3; O2SAT 96
[2024-10-30 03:44] VITALS: BP 134/67; TEMP 97.5; O2SAT 93
[2024-10-30 06:20] LABS: CALCIUM LEVEL 8.3 MG/DL (8.3-10.6); CREATININE FOR GFR 1.95 MG/DL (0.55-1.30); GLOMERULAR FILTRATION RATE 27.1 (>45); POTASSIUM SERUM 4.1 MMOL/L (3.5-5.1)
[2024-10-30] MEDS: NS (Normal Saline) 0.9% 1,000 ML IV SCH (06:51)
[2024-10-30 12:09] VITALS: BP 130/69; TEMP 97.5; O2SAT 95
[2024-10-30 16:43] LABS: CALCIUM LEVEL 7.9 MG/DL (8.3-10.6); CREATININE FOR GFR 1.71 MG/DL (0.55-1.30); GLOMERULAR FILTRATION RATE 31.5 (>45)
[2024-10-30 16:52] VITALS: BP 153/86
[2024-10-31 04:28] VITALS: BP 154/82; TEMP 97.3; O2SAT 95
[2024-10-31 06:30] LABS: CALCIUM LEVEL 8.1 MG/DL (8.3-10.6); CREATININE FOR GFR 1.55 MG/DL (0.55-1.30); GLOMERULAR FILTRATION RATE 35.3 (>45); MAGNESIUM LEVEL 2.1 MG/DL (1.8-2.4); POTASSIUM SERUM 4.3 MMOL/L (3.5-5.1)
[2024-10-31 15:27] VITALS: BP 136/76; TEMP 97.3; O2SAT 93
[2024-10-31] MEDS: PROMETHAZINE 25 MG TAB PO ONE (16:49)
[2024-10-31 20:47] VITALS: BP 112/62; TEMP 97.3; O2SAT 94
[2024-11-01 03:17] VITALS: BP 136/76; TEMP 97.7; O2SAT 93
[2024-11-01] MEDS: ONDANSETRON 4MG ORAL DISINTEGRATING TAB SL PRN (05:28)
[2024-11-01 06:18] LABS: CALCIUM LEVEL 8.1 MG/DL (8.3-10.6); CREATININE FOR GFR 1.47 MG/DL (0.55-1.30); GLOMERULAR FILTRATION RATE 37.5 (>45); MAGNESIUM LEVEL 2.2 MG/DL (1.8-2.4); POTASSIUM SERUM 4.4 MMOL/L (3.5-5.1)
[2024-11-01 12:00] VITALS: BP 144/78; TEMP 97.6; O2SAT 92
[2024-11-01 20:02] VITALS: BP 141/83; TEMP 97.3
[2024-11-02 05:39] VITALS: BP 120/72; TEMP 97.2; O2SAT 96
[2024-11-02 06:44] LABS: CALCIUM LEVEL 8.3 MG/DL (8.3-10.6); CREATININE FOR GFR 1.5 MG/DL (0.55-1.30); GLOMERULAR FILTRATION RATE 36.7 (>45); MAGNESIUM LEVEL 2.2 MG/DL (1.8-2.4); POTASSIUM SERUM 4.3 MMOL/L (3.5-5.1)
[2024-11-02 12:00] VITALS: BP 138/69; TEMP 97.5; O2SAT 95
[2024-11-02 14:43] LABS: CLOSTRIDIUM DIFFICILE PCR POSITIVE (NEGATIVE)
[2024-11-02 19:57] VITALS: BP 138/88; TEMP 97.3; O2SAT 96
[2024-11-03 03:36] VITALS: BP 103/59; TEMP 97.2; O2SAT 94
[2024-11-03 12:00] VITALS: BP 139/66; TEMP 97.6; O2SAT 95
[2024-11-03] MEDS: busPIRone 5 MG TAB PO ONE (13:50)
[2024-11-03 20:40] VITALS: BP 116/52; TEMP 97.3; O2SAT 95
[2024-11-04 04:10] VITALS: BP 114/62; TEMP 97.7; O2SAT 95
[2024-11-04 12:01] VITALS: BP 118/72; TEMP 97.5; O2SAT 97
[2024-11-04 17:23] VITALS: BP 128/78
[2024-11-04 20:30] VITALS: BP 116/67; TEMP 97; O2SAT 96
[2024-11-05 04:20] VITALS: BP 129/75; TEMP 97.3; O2SAT 94
[2024-11-05 04:24] VITALS: TEMP 97.2; O2SAT 92
[2024-11-05 12:00] VITALS: BP 136/66; TEMP 97.6; O2SAT 98
[2024-11-05 17:27] VITALS: BP 105/62
[2024-11-05 20:37] VITALS: BP 126/70; TEMP 97.3; O2SAT 96
[2024-11-06 03:15] VITALS: BP 148/79; TEMP 97.2; O2SAT 92
[2024-11-06 12:00] VITALS: BP 131/79; TEMP 97.2; O2SAT 94
[2024-11-06 17:16] VITALS: BP 137/72
[2024-11-06 20:00] VITALS: BP 131/68; TEMP 97.3; O2SAT 94
[2024-11-07] VITALS (7 sets, daily range): BP systolic 109–122; BP diastolic 53–83; TEMP 97.2–98.5; O2SAT 95–98
[2024-11-07] MEDS: MIDODRINE 5 MG TAB PO SCH (09:20)
[2024-11-07] MEDS ORDERED: PILL CUTTER 1 EACH XX PRN (09:30)
[2024-11-07 09:39] LABS: IONIZED CALCIUM 4.6 MG/DL (4.5-5.3)
[2024-11-07 10:10] LABS: MAGNESIUM LEVEL 2.1 MG/DL (1.8-2.4)
[2024-11-07 10:11] LABS: CALCIUM LEVEL 8.6 MG/DL (8.3-10.6); CREATININE FOR GFR 1.62 MG/DL (0.55-1.30); GLOMERULAR FILTRATION RATE 33.5 (>45); POTASSIUM SERUM 5.6 MMOL/L (3.5-5.1)
[2024-11-07 11:16] LABS: PROCALCITONIN 0.42 ng/ml
[2024-11-07] MEDS: PATIROMER SORBITEX CALCIUM 8.4 GM POWDER PACKET (VELTASSA) PO ONE (12:43)
[2024-11-07] MEDS: metOLazone 2.5 MG TAB PO ONE (12:50)
[2024-11-07] MEDS: FUROSEMIDE 40 MG TAB PO ONE (13:27)
[2024-11-07 16:05] LABS: CALCIUM LEVEL 8.4 MG/DL (8.3-10.6); CREATININE FOR GFR 1.79 MG/DL (0.55-1.30); GLOMERULAR FILTRATION RATE 29.9 (>45); POTASSIUM SERUM 5.7 MMOL/L (3.5-5.1)
[2024-11-07] MEDS: FUROSEMIDE injection 100 MG, VIAL 2 BAG 13MM ADAPTER 1 EACH in NS 100 ML IV SCH (16:46)
[2024-11-07] MEDS ORDERED: FUROSEMIDE 40 MG TAB PO SCH (17:00)
[2024-11-07] MEDS: SODIUM CHLORIDE 0.9% 1000 ML IV SCH (23:50)
[2024-11-08] MEDS ORDERED: FUROSEMIDE 40MG/4ML VIAL IV ONE
[2024-11-08] MEDS: DEXTROSE 50% 50ML SYRINGE IV STA (00:05)
[2024-11-08] MEDS: HumuLIN R (REGULAR) INSULIN (NovoLIN R) **100U/ML** PER UNIT IV STA (00:06)
[2024-11-08] MEDS: CALCIUM GLUCONATE 1,000 MG in DEXTROSE 5% (D5W) MINI-BAG PLU 100 ML IV ONE ×2 (00:08→09:08)
[2024-11-08 02:30] LABS: CALCIUM LEVEL 8.7 MG/DL (8.3-10.6); CREATININE FOR GFR 1.92 MG/DL (0.55-1.30); GLOMERULAR FILTRATION RATE 27.6 (>45); POTASSIUM SERUM 5.2 MMOL/L (3.5-5.1)
[2024-11-08] MEDS: busPIRone 5 MG TAB PO PRN (02:53)
[2024-11-08 03:05] VITALS: BP 132/60; TEMP 97.5; O2SAT 96
[2024-11-08 06:09] LABS: BASO # 0.1 10^3/uL (0.0-0.2); BASO % 0.9 % (0.0-1.0); EOS # 0.2 10^3/uL (0.0-0.5); HEMATOCRIT 30.6 % (36.0-47.0); HEMOGLOBIN 9.1 g/dl (12.0-15.5); LYMPH # 0.7 10^3/uL (1.5-5.0); LYMPH % 12.4 % (24.0-44.0); MEAN CORPUSCULAR HEMOGLOBIN 29.4 pg (27.0-33.0); MEAN CORPUSCULAR HGB CONC 29.7 g/dl (32.0-36.5); MONO # 0.6 10^3/uL (0.0-0.8); MONO % 10.1 % (2.0-8.0); NEUTROPHILS # 4.1 10^3/uL (1.5-8.5); NEUTROPHILS % 72.7 % (36.0-66.0); PLATELET COUNT, AUTOMATED 361 10^3/uL (150-450); RED BLOOD COUNT 3.09 10^6/uL (4.00-5.40); WHITE BLOOD COUNT 5.7 10^3/uL (4.0-10.0)
[2024-11-08 06:42] LABS: CALCIUM LEVEL 8.9 MG/DL (8.3-10.6); CREATININE FOR GFR 1.94 MG/DL (0.55-1.30); GLOMERULAR FILTRATION RATE 27.2 (>45); MAGNESIUM LEVEL 1.9 MG/DL (1.8-2.4); POTASSIUM SERUM 5.7 MMOL/L (3.5-5.1)
[2024-11-08 08:24] VITALS: BP 130/59; TEMP 98; O2SAT 95
[2024-11-08 12:20] VITALS: BP 156/77; TEMP 99.1; O2SAT 98
[2024-11-08] MEDS: FUROSEMIDE 100MG/10ML VIAL IV SCH (12:23)
[2024-11-08] MEDS: PATIROMER SORBITEX CALCIUM 8.4 GM POWDER PACKET (VELTASSA) PO ONE (12:23)
[2024-11-08 15:40] VITALS: BP 113/65; TEMP 97.6; O2SAT 96
[2024-11-08 20:32] VITALS: BP 125/69; TEMP 97.8; O2SAT 98
[2024-11-09 04:16] VITALS: BP 118/62; TEMP 97.9; O2SAT 98
[2024-11-09 07:06] LABS: BASO % 0.7 % (0.0-1.0); EOS # 0.2 10^3/uL (0.0-0.5); HEMATOCRIT 33.2 % (36.0-47.0); LYMPH # 0.7 10^3/uL (1.5-5.0); LYMPH % 12.9 % (24.0-44.0); MEAN CORPUSCULAR HEMOGLOBIN 29.4 pg (27.0-33.0); MEAN CORPUSCULAR HGB CONC 30.1 g/dl (32.0-36.5); MEAN CORPUSCULAR VOLUME 97.6 fl (80.0-96.0); MONO # 0.7 10^3/uL (0.0-0.8); MONO % 12.2 % (2.0-8.0); NEUTROPHILS # 3.8 10^3/uL (1.5-8.5); NEUTROPHILS % 70.6 % (36.0-66.0); PLATELET COUNT, AUTOMATED 372 10^3/uL (150-450); WHITE BLOOD COUNT 5.4 10^3/uL (4.0-10.0)
[2024-11-09 07:40] VITALS: BP 115/62; TEMP 98.2; O2SAT 95
[2024-11-09 07:45] LABS: CALCIUM LEVEL 9.3 MG/DL (8.3-10.6); CREATININE FOR GFR 1.91 MG/DL (0.55-1.30); GLOMERULAR FILTRATION RATE 27.7 (>45); MAGNESIUM LEVEL 1.8 MG/DL (1.8-2.4); POTASSIUM SERUM 4.8 MMOL/L (3.5-5.1)
[2024-11-09 11:40] VITALS: BP 136/75; TEMP 97.5; O2SAT 98
[2024-11-09 16:22] VITALS: BP 145/65; TEMP 98.4; O2SAT 96
[2024-11-09] MEDS: PROMETHAZINE 25MG/ML 1ML VIAL IV ONE (17:02)
[2024-11-09 19:25] VITALS: BP 129/66; TEMP 97; O2SAT 96
[2024-11-10 04:01] VITALS: BP 164/70; TEMP 97.7; O2SAT 97
[2024-11-10 07:19] LABS: BASO % 0.6 % (0.0-1.0); EOS # 0.1 10^3/uL (0.0-0.5); EOS % 2.2 % (0.0-3.0); HEMATOCRIT 31.1 % (36.0-47.0); HEMOGLOBIN 9.4 g/dl (12.0-15.5); LYMPH # 0.8 10^3/uL (1.5-5.0); LYMPH % 12.8 % (24.0-44.0); MEAN CORPUSCULAR HEMOGLOBIN 29.6 pg (27.0-33.0); MEAN CORPUSCULAR HGB CONC 30.2 g/dl (32.0-36.5); MEAN CORPUSCULAR VOLUME 97.8 fl (80.0-96.0); MONO # 0.8 10^3/uL (0.0-0.8); MONO % 12.5 % (2.0-8.0); NEUTROPHILS # 4.5 10^3/uL (1.5-8.5); NEUTROPHILS % 71.4 % (36.0-66.0); PLATELET COUNT, AUTOMATED 356 10^3/uL (150-450); RED BLOOD COUNT 3.18 10^6/uL (4.00-5.40); WHITE BLOOD COUNT 6.3 10^3/uL (4.0-10.0)
[2024-11-10 07:45] LABS: CALCIUM LEVEL 8.9 MG/DL (8.3-10.6); CREATININE FOR GFR 1.98 MG/DL (0.55-1.30); GLOMERULAR FILTRATION RATE 26.6 (>45); MAGNESIUM LEVEL 1.7 MG/DL (1.8-2.4); POTASSIUM SERUM 4.4 MMOL/L (3.5-5.1)
[2024-11-10 11:51] VITALS: BP 123/58; TEMP 98.3; O2SAT 92
[2024-11-10] MEDS: FERRIC CARBOXYMALTOSE INJ 750 MG, VIAL MATE ADAPTER 1 EACH in NS 100 ML IV ONE (15:28)
[2024-11-10 15:29] VITALS: BP 102/56; TEMP 99; O2SAT 97
[2024-11-10 15:58] VITALS: BP 102/56; TEMP 98; O2SAT 97
[2024-11-10 20:23] VITALS: BP 109/52; TEMP 97.2; O2SAT 97
[2024-11-10 23:17] VITALS: BP 114/56; TEMP 97.2; O2SAT 98
[2024-11-11] VITALS (7 sets, daily range): BP systolic 100–127; BP diastolic 56–69; TEMP 97–97.5; O2SAT 94–96
[2024-11-11 06:45] LABS: BASO % 0.6 % (0.0-1.0); EOS # 0.1 10^3/uL (0.0-0.5); EOS % 2.2 % (0.0-3.0); HEMATOCRIT 29.3 % (36.0-47.0); HEMOGLOBIN 8.8 g/dl (12.0-15.5); LYMPH # 0.8 10^3/uL (1.5-5.0); LYMPH % 15.5 % (24.0-44.0); MEAN CORPUSCULAR HEMOGLOBIN 29.3 pg (27.0-33.0); MEAN CORPUSCULAR VOLUME 97.7 fl (80.0-96.0); MONO # 0.8 10^3/uL (0.0-0.8); MONO % 14.2 % (2.0-8.0); NEUTROPHILS # 3.6 10^3/uL (1.5-8.5); NEUTROPHILS % 67.1 % (36.0-66.0); PLATELET COUNT, AUTOMATED 329 10^3/uL (150-450); WHITE BLOOD COUNT 5.4 10^3/uL (4.0-10.0)
[2024-11-11 07:16] LABS: CALCIUM LEVEL 8.4 MG/DL (8.3-10.6); CREATININE FOR GFR 1.99 MG/DL (0.55-1.30); GLOMERULAR FILTRATION RATE 26.5 (>45); MAGNESIUM LEVEL 1.6 MG/DL (1.8-2.4); POTASSIUM SERUM 3.8 MMOL/L (3.5-5.1)
[2024-11-11] MEDS ORDERED: FIDAXOMICIN 200 MG TAB (DIFICID) PO SCH (09:00)
[2024-11-11 15:47] LABS: URINE STREP PNEUMONIAE ANTIGEN DETECTED (NOT DETECT)
[2024-11-11] MEDS: METOCLOPRAMIDE INJ 10MG/2ML VIAL IV ONE (23:25)
[2024-11-12 01:19] VITALS: BP 108/81; TEMP 97.4; O2SAT 98
[2024-11-12 03:00] VITALS: BP 103/62
[2024-11-12 05:37] LABS: BASO % 0.6 % (0.0-1.0); EOS # 0.1 10^3/uL (0.0-0.5); EOS % 1.8 % (0.0-3.0); HEMATOCRIT 32.2 % (36.0-47.0); HEMOGLOBIN 9.7 g/dl (12.0-15.5); LYMPH # 0.8 10^3/uL (1.5-5.0); LYMPH % 14.9 % (24.0-44.0); MEAN CORPUSCULAR HEMOGLOBIN 29.6 pg (27.0-33.0); MEAN CORPUSCULAR HGB CONC 30.1 g/dl (32.0-36.5); MEAN CORPUSCULAR VOLUME 98.2 fl (80.0-96.0); MONO # 0.6 10^3/uL (0.0-0.8); MONO % 11.6 % (2.0-8.0); NEUTROPHILS # 3.8 10^3/uL (1.5-8.5); NEUTROPHILS % 70.2 % (36.0-66.0); PLATELET COUNT, AUTOMATED 332 10^3/uL (150-450); RED BLOOD COUNT 3.28 10^6/uL (4.00-5.40); WHITE BLOOD COUNT 5.4 10^3/uL (4.0-10.0)
[2024-11-12 05:54] LABS: CALCIUM LEVEL 8.1 MG/DL (8.3-10.6); CREATININE FOR GFR 1.89 MG/DL (0.55-1.30); GLOMERULAR FILTRATION RATE 28.1 (>45); MAGNESIUM LEVEL 1.6 MG/DL (1.8-2.4); POTASSIUM SERUM 3.8 MMOL/L (3.5-5.1)
[2024-11-12 08:36] VITALS: BP 105/63
[2024-11-12 12:00] VITALS: BP 128/68; TEMP 97.7; O2SAT 99
[2024-11-12 20:09] VITALS: BP 122/67; TEMP 97.9; O2SAT 98
[2024-11-13 03:23] VITALS: BP 121/68; TEMP 97.7; O2SAT 97
[2024-11-13 06:02] LABS: BASO % 0.6 % (0.0-1.0); EOS # 0.1 10^3/uL (0.0-0.5); EOS % 1.6 % (0.0-3.0); HEMATOCRIT 31.6 % (36.0-47.0); HEMOGLOBIN 9.4 g/dl (12.0-15.5); LYMPH # 0.7 10^3/uL (1.5-5.0); LYMPH % 10.2 % (24.0-44.0); MEAN CORPUSCULAR HEMOGLOBIN 28.9 pg (27.0-33.0); MEAN CORPUSCULAR HGB CONC 29.7 g/dl (32.0-36.5); MEAN CORPUSCULAR VOLUME 97.2 fl (80.0-96.0); MONO # 0.8 10^3/uL (0.0-0.8); NEUTROPHILS # 5.2 10^3/uL (1.5-8.5); NEUTROPHILS % 75.7 % (36.0-66.0); PLATELET COUNT, AUTOMATED 383 10^3/uL (150-450); RED BLOOD COUNT 3.25 10^6/uL (4.00-5.40); WHITE BLOOD COUNT 6.8 10^3/uL (4.0-10.0)
[2024-11-13 06:33] LABS: CALCIUM LEVEL 8.2 MG/DL (8.3-10.6); CREATININE FOR GFR 1.89 MG/DL (0.55-1.30); GLOMERULAR FILTRATION RATE 28.1 (>45); MAGNESIUM LEVEL 1.6 MG/DL (1.8-2.4); POTASSIUM SERUM 3.4 MMOL/L (3.5-5.1)
[2024-11-13] MEDS: POTASSIUM CHLORIDE 10MEQ SR TABLET PO ONE (11:18)
[2024-11-13 12:00] VITALS: BP 121/65; TEMP 97.9; O2SAT 96
[2024-11-13 17:31] VITALS: BP 96/49
[2024-11-13 18:34] VITALS: BP 106/70
[2024-11-13 20:02] VITALS: BP 111/66; TEMP 97; O2SAT 97
[2024-11-13] MEDS: BENZOCAINE 10% 9GM TUBE (ANBESOL) MT SCH (21:00)
[2024-11-13] MEDS: SALIVA SUBSTITUTE(MOUTHKOTE) BTL MT ONE (21:36)
[2024-11-14 03:10] VITALS: BP 114/66; TEMP 97.5; O2SAT 94
[2024-11-14 05:04] LABS: BASO % 0.6 % (0.0-1.0); EOS # 0.1 10^3/uL (0.0-0.5); EOS % 1.2 % (0.0-3.0); HEMATOCRIT 33.2 % (36.0-47.0); HEMOGLOBIN 9.9 g/dl (12.0-15.5); MEAN CORPUSCULAR HEMOGLOBIN 28.9 pg (27.0-33.0); MEAN CORPUSCULAR HGB CONC 29.8 g/dl (32.0-36.5); MEAN CORPUSCULAR VOLUME 97.1 fl (80.0-96.0); MONO # 0.6 10^3/uL (0.0-0.8); MONO % 8.9 % (2.0-8.0); NEUTROPHILS # 5.1 10^3/uL (1.5-8.5); NEUTROPHILS % 73.7 % (36.0-66.0); PLATELET COUNT, AUTOMATED 432 10^3/uL (150-450); RED BLOOD COUNT 3.42 10^6/uL (4.00-5.40); WHITE BLOOD COUNT 6.9 10^3/uL (4.0-10.0)
[2024-11-14 05:28] LABS: CALCIUM LEVEL 8.4 MG/DL (8.3-10.6); CREATININE FOR GFR 1.84 MG/DL (0.55-1.30); MAGNESIUM LEVEL 1.6 MG/DL (1.8-2.4); POTASSIUM SERUM 4.2 MMOL/L (3.5-5.1)
[2024-11-14] MEDS ORDERED: SALIVA SUBSTITUTE(MOUTHKOTE) BTL MT SCH (07:00)
[2024-11-14] MEDS: MAG SULF 1GM/100ML (MAG RUN) 1 GM in IV 1 EA IV SCH (09:44)
[2024-11-14 12:00] VITALS: BP 139/75; TEMP 97.7; O2SAT 98
[2024-11-14 16:35] VITALS: BP 120/56
[2024-11-14 19:58] VITALS: BP 131/73; TEMP 97.7; O2SAT 96
[2024-11-15 04:19] VITALS: BP 130/74; TEMP 97.9; O2SAT 96
[2024-11-15 08:53] LABS: IONIZED CALCIUM 4.3 MG/DL (4.5-5.3)
[2024-11-15 09:05] LABS: BASO % 0.5 % (0.0-1.0); EOS # 0.1 10^3/uL (0.0-0.5); HEMATOCRIT 32.5 % (36.0-47.0); HEMOGLOBIN 9.8 g/dl (12.0-15.5); LYMPH # 0.9 10^3/uL (1.5-5.0); LYMPH % 15.1 % (24.0-44.0); MEAN CORPUSCULAR HEMOGLOBIN 29.3 pg (27.0-33.0); MEAN CORPUSCULAR HGB CONC 30.2 g/dl (32.0-36.5); MONO # 0.6 10^3/uL (0.0-0.8); MONO % 9.7 % (2.0-8.0); NEUTROPHILS # 4.5 10^3/uL (1.5-8.5); NEUTROPHILS % 73.1 % (36.0-66.0); PLATELET COUNT, AUTOMATED 344 10^3/uL (150-450); RED BLOOD COUNT 3.35 10^6/uL (4.00-5.40); WHITE BLOOD COUNT 6.2 10^3/uL (4.0-10.0)
[2024-11-15 09:33] LABS: CALCIUM LEVEL 8.3 MG/DL (8.3-10.6); CREATININE FOR GFR 1.74 MG/DL (0.55-1.30); GLOMERULAR FILTRATION RATE 30.9 (>45); MAGNESIUM LEVEL 1.9 MG/DL (1.8-2.4); POTASSIUM SERUM 4.4 MMOL/L (3.5-5.1)
[2024-11-15 12:00] VITALS: BP 125/82; TEMP 97.9; O2SAT 99
[2024-11-15] MEDS: TORSEMIDE 100 MG TAB PO SCH (12:18)
[2024-11-15 14:38] LABS: C REACTIVE PROTEIN QUANTITATIV 0.98 MG/DL (<1.0)
[2024-11-15 16:48] VITALS: BP 100/56
[2024-11-15 19:59] VITALS: BP 126/61; TEMP 97.7; O2SAT 100
[2024-11-16 00:04] VITALS: BP 122/63; TEMP 97.5; O2SAT 93
[2024-11-16 03:43] VITALS: BP 118/61; TEMP 97.9; O2SAT 96
[2024-11-16 06:23] LABS: BASO % 0.4 % (0.0-1.0); EOS # 0.1 10^3/uL (0.0-0.5); EOS % 1.1 % (0.0-3.0); HEMATOCRIT 31.6 % (36.0-47.0); HEMOGLOBIN 9.7 g/dl (12.0-15.5); LYMPH # 0.7 10^3/uL (1.5-5.0); LYMPH % 12.5 % (24.0-44.0); MEAN CORPUSCULAR HEMOGLOBIN 30.2 pg (27.0-33.0); MEAN CORPUSCULAR HGB CONC 30.7 g/dl (32.0-36.5); MEAN CORPUSCULAR VOLUME 98.4 fl (80.0-96.0); MONO # 0.5 10^3/uL (0.0-0.8); MONO % 9.6 % (2.0-8.0); NEUTROPHILS # 4.2 10^3/uL (1.5-8.5); PLATELET COUNT, AUTOMATED 329 10^3/uL (150-450); RED BLOOD COUNT 3.21 10^6/uL (4.00-5.40); WHITE BLOOD COUNT 5.5 10^3/uL (4.0-10.0)
[2024-11-16 06:44] LABS: CALCIUM LEVEL 7.7 MG/DL (8.3-10.6); CREATININE FOR GFR 1.73 MG/DL (0.55-1.30); GLOMERULAR FILTRATION RATE 31.1 (>45); POTASSIUM SERUM 3.8 MMOL/L (3.5-5.1)
[2024-11-16] MEDS ORDERED: TORS100T PO (11:59)
[2024-11-16] MEDS ORDERED: ONDA-282 PO (11:59)
[2024-11-16] MEDS ORDERED: MIDO10TA3 PO (11:59)
[2024-11-16 16:44] VITALS: BP 134/76
[2024-11-16 21:00] VITALS: TEMP 97.9; O2SAT 98
[2024-11-16 21:07] VITALS: BP 103/55
[2024-11-17 03:36] VITALS: BP 125/70; TEMP 97.7; O2SAT 96
[2024-11-17 06:07] LABS: BASO % 0.5 % (0.0-1.0); EOS # 0.1 10^3/uL (0.0-0.5); EOS % 1.1 % (0.0-3.0); HEMATOCRIT 31.1 % (36.0-47.0); HEMOGLOBIN 9.5 g/dl (12.0-15.5); LYMPH # 0.6 10^3/uL (1.5-5.0); LYMPH % 10.4 % (24.0-44.0); MEAN CORPUSCULAR HEMOGLOBIN 29.7 pg (27.0-33.0); MEAN CORPUSCULAR HGB CONC 30.5 g/dl (32.0-36.5); MEAN CORPUSCULAR VOLUME 97.2 fl (80.0-96.0); MONO # 0.5 10^3/uL (0.0-0.8); MONO % 8.4 % (2.0-8.0); NEUTROPHILS # 4.4 10^3/uL (1.5-8.5); NEUTROPHILS % 78.9 % (36.0-66.0); PLATELET COUNT, AUTOMATED 333 10^3/uL (150-450); WHITE BLOOD COUNT 5.6 10^3/uL (4.0-10.0)
[2024-11-17 06:31] LABS: CALCIUM LEVEL 8.2 MG/DL (8.3-10.6); CREATININE FOR GFR 1.96 MG/DL (0.55-1.30); GLOMERULAR FILTRATION RATE 26.9 (>45); POTASSIUM SERUM 3.8 MMOL/L (3.5-5.1)
[2024-11-17 08:07] VITALS: BP 121/71
[2024-11-17] MEDS ORDERED: ALBUTEROL SULFATE 2.5MG/0.5ML INH NEB SOLN NEB PRN (11:40)
== END 2024-11-17 16:11 | disposition home health service (06) | DRG 576 ==
LOC: M ED 04:38 → M ED INP 04:39 → M MSPAV 13:17 → EEVIPCON 10-10 12:23 → OBSVTOIN 10-10 12:23 → M MS5PR 10-28 17:00 → M OBS 11-07 15:55 → M PCU 11-07 16:26 → M MSPAV 11-12 01:10
PROVIDERS: ADMIT General Practice; ATTEND General Practice
PROC: 0HBJXZZ Excision of Left Upper Leg Skin, External Approach (ICD-10-PCS; 2024-10-28)
PROC: 0HRLX74 Replacement of Left Lower Leg Skin with Autologous Tissue Substitute, Partial Thickness, External Approach (ICD-10-PCS; principal; 2024-10-28 12:15)
DX: S81.002S Unspecified open wound, left knee, sequela (principal); I50.33 Acute on chronic diastolic (congestive) heart failure; I48.92 Unspecified atrial flutter; E87.20 Acidosis, unspecified; N17.9 Acute kidney failure, unspecified; I13.0 Hypertensive heart and chronic kidney disease with heart failure and stage 1 through stage 4 chronic kidney disease, or unspecified chronic kidney disease; L03.116 Cellulitis of left lower limb; Z68.41 Body mass index [BMI] 40.0-44.9, adult; L97.928 Non-pressure chronic ulcer of unspecified part of left lower leg with other specified severity; J98.11 Atelectasis; K52.1 Toxic gastroenteritis and colitis; I48.0 Paroxysmal atrial fibrillation; M71.21 Synovial cyst of popliteal space [Baker], right knee; M10.9 Gout, unspecified; G47.33 Obstructive sleep apnea (adult) (pediatric); K75.81 Nonalcoholic steatohepatitis (NASH); D50.9 Iron deficiency anemia, unspecified; E11.42 Type 2 diabetes mellitus with diabetic polyneuropathy; E11.3299 Type 2 diabetes mellitus with mild nonproliferative diabetic retinopathy without macular edema, unspecified eye; E78.5 Hyperlipidemia, unspecified; I12.9 Hypertensive chronic kidney disease with stage 1 through stage 4 chronic kidney disease, or unspecified chronic kidney disease; G89.29 Other chronic pain; M54.50 Low back pain, unspecified; F32.A Depression, unspecified; F41.9 Anxiety disorder, unspecified; G47.00 Insomnia, unspecified; E04.2 Nontoxic multinodular goiter; N18.30 Chronic kidney disease, stage 3 unspecified; E11.22 Type 2 diabetes mellitus with diabetic chronic kidney disease; L40.9 Psoriasis, unspecified; B97.29 Other coronavirus as the cause of diseases classified elsewhere; I95.89 Other hypotension; E11.622 Type 2 diabetes mellitus with other skin ulcer; T50.3X5A Adverse effect of electrolytic, caloric and water-balance agents, initial encounter; E87.5 Hyperkalemia; F17.200 Nicotine dependence, unspecified, uncomplicated; L30.9 Dermatitis, unspecified; J06.9 Acute upper respiratory infection, unspecified; D64.9 Anemia, unspecified; J44.9 Chronic obstructive pulmonary disease, unspecified; R53.1 Weakness; E66.01 Morbid (severe) obesity due to excess calories; Z79.891 Long term (current) use of opiate analgesic; Z98.84 Bariatric surgery status; Z79.01 Long term (current) use of anticoagulants; Z79.4 Long term (current) use of insulin; Z79.899 Other long term (current) drug therapy; Z88.5 Allergy status to narcotic agent; Z88.8 Allergy status to other drugs, medicaments and biological substances

== ENCOUNTER 2024-11-22 07:18 | Emergency (ER) | payer MEDICARE ==
[~2024-11-22] VITALS: Ht 167.6 cm; Wt 113.3 kg
[~2024-11-22 07:18] MED LIST changes: +METO1TAB32 PO; +MIDO10TA3 PO; +ONDA-282 PO; +TORS100T PO; +TRAM50TA2 PO
[2024-11-22] MEDS: IPRATROPIUM 0.5MG/ALBUTEROL 2.5MG INH SOL UD 3ML NEB PRN (07:51)
[2024-11-22 08:05] LABS: ABG BASE EXCESS 0.9 (-2.0-2.0); ABG HCO3 23.6 MMOL/L (22.0-26.0); ABG O2 SATURATION 95.7 % (95.0-99.0); ABG PARTIAL PRESSURE CO2 31.3 mmHg (35.0-45.0); ABG PARTIAL PRESSURE O2 72.6 mmHg (75.0-100.0); ABG STANDARD HCO3 25.2 MMOL/L. (22.0-26.0); ABG TOTAL CO2 24.5 MMOL/L (23.0-31.0); ABG pH (ARTERIAL) 7.495 UNITS (7.350-7.450)
[2024-11-22 08:11] LABS: BASO % 0.4 % (0.0-1.0); EOS % 0.6 % (0.0-3.0); HEMATOCRIT 33.9 % (36.0-47.0); HEMOGLOBIN 10.4 g/dl (12.0-15.5); LYMPH # 0.5 10^3/uL (1.5-5.0); LYMPH % 7.8 % (24.0-44.0); MEAN CORPUSCULAR HEMOGLOBIN 30.3 pg (27.0-33.0); MEAN CORPUSCULAR HGB CONC 30.7 g/dl (32.0-36.5); MEAN CORPUSCULAR VOLUME 98.8 fl (80.0-96.0); MONO # 0.5 10^3/uL (0.0-0.8); MONO % 7.2 % (2.0-8.0); NEUTROPHILS # 5.8 10^3/uL (1.5-8.5); NEUTROPHILS % 83.4 % (36.0-66.0); PLATELET COUNT, AUTOMATED 334 10^3/uL (150-450); RED BLOOD COUNT 3.43 10^6/uL (4.00-5.40); WHITE BLOOD COUNT 6.9 10^3/uL (4.0-10.0)
[2024-11-22] MEDS: methylPREDNISolone 125MG 2ML VIAL IV ONE (08:18)
[2024-11-22 08:35] LABS: ALBUMIN 2.7 G/DL (3.2-5.2); BILIRUBIN,DIRECT 0.3 MG/DL (<0.4); BILIRUBIN,TOTAL 0.7 MG/DL (0.3-1.2); CALCIUM LEVEL 7.9 MG/DL (8.3-10.6); CREATININE FOR GFR 2.09 MG/DL (0.55-1.30); GLOMERULAR FILTRATION RATE 25.2 (>45); MAGNESIUM LEVEL 1.7 MG/DL (1.8-2.4); POTASSIUM SERUM 3.1 MMOL/L (3.5-5.1); TOTAL PROTEIN 5.5 G/DL (5.7-8.2)
[2024-11-22] MEDS: busPIRone 5 MG TAB PO ONE (08:57)
[2024-11-22] MEDS: ACETAMINOPHEN *IV* 1,000 MG in IV 1 EA IV ONE (08:58)
[2024-11-22] MEDS ORDERED: TORSEMIDE 100 MG TAB PO SCH (09:00)
[2024-11-22 10:39] LABS: PROCALCITONIN 0.34 ng/ml
[2024-11-22] MEDS: POTASSIUM CHLORIDE 10MEQ SR TABLET PO ONE (11:00)
[2024-11-22] MEDS: FUROSEMIDE 40MG/4ML VIAL IV ONE (11:01)
[2024-11-22] MEDS ORDERED: OXYC-517 PO (11:56)
[2024-11-22] MEDS ORDERED: ONDA-282 PO (11:56)
[2024-11-22] MEDS ORDERED: MIDO10TA3 PO (11:56)
[2024-11-22] MEDS ORDERED: TORS100T PO (11:56)
[2024-11-22] MEDS ORDERED: HOME MED LIST COMPLETE! XX SCH (12:00)
[2024-11-22] MEDS ORDERED: CEFD300C PO (12:38)
[2024-11-22] MEDS ORDERED: DOXY-442 PO (12:38)
[2024-11-22] MEDS ORDERED: MIDODRINE 5 MG TAB PO PRN (13:25)
[2024-11-22] MEDS ORDERED: COMBIVENT RESPIMAT 100-20MCG INHALER 4GM INH PRN (13:25)
[2024-11-22] MEDS: LevoFLOXacin 750 MG TABLET PO SCH (15:09)
[2024-11-22] MEDS: oxyCODONE 5MG TAB PO PRN (15:10)
[2024-11-22] MEDS: METOPROLOL SUCC *XL* 25MG TAB (TopROL *XL*) PO SCH (15:15)
[2024-11-22] MEDS: AMIODARONE 200 MG TAB (PACERONE) PO SCH (21:51)
[2024-11-22] MEDS: busPIRone 5 MG TAB PO PRN (21:52)
[2024-11-22] MEDS: APIXABAN 5 MG TAB (ELIQUIS) PO SCH (21:54)
[2024-11-23] MEDS: ACETAMINOPHEN 325 MG TAB PO PRN (04:39)
[2024-11-23] MEDS: TORSEMIDE 100 MG TAB PO SCH (09:01)
[2024-11-23] MEDS: EZETIMIBE 10MG TABLET (ZETIA) PO SCH (09:01)
[2024-11-23] MEDS: allopurinoL 100 MG TAB PO SCH (09:02)
[2024-11-23] MEDS: ONDANSETRON 4MG ORAL DISINTEGRATING TAB PO PRN (09:02)
[2024-11-23] MEDS: DAPAGLIFLOZIN PROPANEDIOL 10MG TABLET (FARXIGA) PO SCH (09:02)
[2024-11-23] MEDS: MAGNESIUM OXIDE 400MG TAB (MAG-OX) PO SCH (09:02)
[2024-11-23] MEDS: PANTOPRAZOLE 40MG TAB (PROTONIX) PO SCH (09:02)
[2024-11-24] MEDS ORDERED: oxyCODONE 5MG TAB PO PRN (19:45)
[2024-11-24] MEDS ORDERED: PILL CUTTER 1 EACH XX ONE (21:20)
[2024-11-24] MEDS: oxyCODONE 5MG TAB PO PRN (21:24)
[2024-11-24] MEDS: DOCUSATE SODIUM 100MG CAPSULE PO SCH (22:01)
[2024-11-25 04:22] VITALS: TEMP 97.2
[2024-11-25 08:06] VITALS: BP 110/57
[2024-11-25] MEDS: INSULIN LISPRO (NovoLOG) PER UNIT SC SCH (12:00)
[2024-11-25 12:01] VITALS: BP 107/72
[2024-11-25] MEDS ORDERED: GLUCAGON INJ 1MG VIAL SC PRN (13:05)
[2024-11-25] MEDS ORDERED: DEXTROSE 50% 50ML SYRINGE IV PRN (13:05)
[2024-11-25] MEDS ORDERED: GLUCOSE 4 GM CHEW PO PRN (13:05)
[2024-11-25 15:31] VITALS: O2SAT 95
[2024-11-25] MEDS ORDERED: INSULIN LISPRO (NovoLOG) PER UNIT SC SCH (21:00)
== END 2024-11-25 15:51 | disposition home or self-care (01) ==
LOC: EDBD 07:18 → M ED 07:18
DX: J18.9 Pneumonia, unspecified organism (principal); J91.8 Pleural effusion in other conditions classified elsewhere; I48.91 Unspecified atrial fibrillation; I50.22 Chronic systolic (congestive) heart failure; E11.9 Type 2 diabetes mellitus without complications; I11.0 Hypertensive heart disease with heart failure; E78.5 Hyperlipidemia, unspecified; J44.9 Chronic obstructive pulmonary disease, unspecified; G47.33 Obstructive sleep apnea (adult) (pediatric); D50.9 Iron deficiency anemia, unspecified; F17.210 Nicotine dependence, cigarettes, uncomplicated; Z88.5 Allergy status to narcotic agent; Z88.8 Allergy status to other drugs, medicaments and biological substances; Z79.51 Long term (current) use of inhaled steroids; Z79.01 Long term (current) use of anticoagulants; Z79.899 Other long term (current) drug therapy
CPT/HCPCS: 36600; 71045; 71250; 72220; 80048; 80076; 82803; 83605; 83690; 83735; 83880; 84145; 85025; 87040; 87486; 87581; 87633; 87635; 87798; 93005; 93041; 94640; 94760; 96374; 96375; 97110; 97112; 97161; 97165; 97530; 99285; J0131; J1938; J2919

== ENCOUNTER 2025-01-03 21:00 | Emergency (ER) | payer MEDICARE ==
[~2025-01-03] VITALS: Ht 167.6 cm; Wt 100.0 kg
[~2025-01-03 21:00] MED LIST changes: +BUPR150T15 PO; -BUPR1TAB53 PO; +CEFD300C PO; +DOXY-442 PO
[2025-01-03 22:36] LABS: BASO # 0.1 10^3/uL (0.0-0.2); BASO % 0.6 % (0.0-1.0); EOS # 0.1 10^3/uL (0.0-0.5); EOS % 1.1 % (0.0-3.0); HEMATOCRIT 43.5 % (36.0-47.0); HEMOGLOBIN 13.5 g/dl (12.0-15.5); LYMPH # 1.1 10^3/uL (1.5-5.0); LYMPH % 12.5 % (24.0-44.0); MEAN CORPUSCULAR HEMOGLOBIN 30.8 pg (27.0-33.0); MEAN CORPUSCULAR VOLUME 99.3 fl (80.0-96.0); MONO # 0.5 10^3/uL (0.0-0.8); MONO % 5.7 % (2.0-8.0); NEUTROPHILS # 7.1 10^3/uL (1.5-8.5); NEUTROPHILS % 79.5 % (36.0-66.0); PLATELET COUNT, AUTOMATED 317 10^3/uL (150-450); RED BLOOD COUNT 4.38 10^6/uL (4.00-5.40); WHITE BLOOD COUNT 8.9 10^3/uL (4.0-10.0)
[2025-01-03 22:58] LABS: ALBUMIN 2.8 G/DL (3.2-5.2); BILIRUBIN,DIRECT 0.5 MG/DL (<0.4); BILIRUBIN,TOTAL 0.9 MG/DL (0.3-1.2); TOTAL PROTEIN 5.5 G/DL (5.7-8.2)
[2025-01-04] MEDS: NS (Normal Saline) 0.9% 1,000 ML IV ONE (02:03)
[2025-01-04] MEDS: METOCLOPRAMIDE INJ 10MG/2ML VIAL IV ONE (02:03)
[2025-01-04 02:34] LABS: CPK CREATINE PHOSPHOKINASE 20 U/L (34-145)
[2025-01-04 02:37] LABS: BLOOD UREA NITROGEN 31 MG/DL (9-23); CALCIUM LEVEL 9.2 MG/DL (8.3-10.6); CARBON DIOXIDE LEVEL 24 MMOL/L (20-31); CHLORIDE LEVEL 107 MMOL/L (98-107); CK-MB VALUE MASS < 1.0 NG/ML (<3.6); CREATININE FOR GFR 1.45 MG/DL (0.55-1.30); GLOMERULAR FILTRATION RATE 39.1 (>45); GLUCOSE, FASTING 195 MG/DL (74-106); POTASSIUM SERUM 4.3 MMOL/L (3.5-5.1); SODIUM LEVEL 141 MMOL/L (136-145)
[2025-01-04] MEDS ORDERED: REGL10TA6 PO (04:44)
[2025-01-04 05:45] VITALS: BP 136/65; TEMP 97.8; O2SAT 94
== END 2025-01-04 05:59 | disposition home or self-care (01) ==
LOC: M ED 21:00 → EDBD 21:00 → M ED 01-04 05:59
DX: A08.39 Other viral enteritis (principal); B34.1 Enterovirus infection, unspecified; I48.91 Unspecified atrial fibrillation; I44.4 Left anterior fascicular block; I45.81 Long QT syndrome; I50.22 Chronic systolic (congestive) heart failure; E11.9 Type 2 diabetes mellitus without complications; I11.0 Hypertensive heart disease with heart failure; J44.9 Chronic obstructive pulmonary disease, unspecified; E78.5 Hyperlipidemia, unspecified; N18.9 Chronic kidney disease, unspecified; Z88.5 Allergy status to narcotic agent; Z88.8 Allergy status to other drugs, medicaments and biological substances; Z79.01 Long term (current) use of anticoagulants; Z79.4 Long term (current) use of insulin; Z79.51 Long term (current) use of inhaled steroids; Z79.899 Other long term (current) drug therapy
CPT/HCPCS: 80048; 80076; 82550; 82553; 83690; 84484; 85025; 87486; 87581; 87633; 87798; 93005; 96361; 96374; 99284; J2765

== ENCOUNTER 2025-02-01 06:12 | Inpatient (IN) | payer MEDICARE, MEDICAID ==
[~2025-02-01] VITALS: Ht 167.6 cm; Wt 97.1 kg
[~2025-02-01 06:12] MED LIST changes: +BENZ-18 PO; +CEFU50TA PO; +INSUHUMDS SC; +INSULANT SC; +LISI40TA10 PO; -LISI40TA4 PO; +METO10TA3 PO; +REGL10TA6 PO
[2025-02-01 06:54] LABS: VENOUS BASE EXCESS -1.7 (-2.0-2.0); VENOUS HCO3 23.9 MMOL/L (23.0-27.0); VENOUS O2 SATURATION 41.4 % (60.0-80.0); VENOUS PARTIAL PRESSURE CO2 43.2 mmHg (38.0-50.0); VENOUS PARTIAL PRESSURE O2 25.2 mmHg (30.0-50.0); VENOUS PH 7.360 UNITS (7.330-7.430); VENOUS STANDARD HCO3 21.8 MMOL/L; VENOUS TOTAL CO2 25.2 MMOL/L (24.0-28.0)
[2025-02-01 07:20] LABS: BASO # 0.0 10^3/uL (0.0-0.2); BASO % 0.2 % (0.0-1.0); EOS # 0.0 10^3/uL (0.0-0.5); EOS % 0.1 % (0.0-3.0); LYMPH # 0.7 10^3/uL (1.5-5.0); LYMPH % 5.1 % (24.0-44.0); MONO # 0.6 10^3/uL (0.0-0.8); MONO % 4.2 % (2.0-8.0); NEUTROPHILS # 12.5 10^3/uL (1.5-8.5); NEUTROPHILS % 89.4 % (36.0-66.0); PLATELET COUNT, AUTOMATED 285 10^3/uL (150-450)
[2025-02-01 07:32] LABS: INR 1.04
[2025-02-01 07:44] LABS: CK-MB VALUE MASS < 1.0 NG/ML (<3.6)
[2025-02-01 07:46] LABS: C REACTIVE PROTEIN QUANTITATIV 2.34 MG/DL (<1.0); CPK CREATINE PHOSPHOKINASE 32 U/L (34-145)
[2025-02-01] MEDS ORDERED: [UNRECOGNIZED DRUG - OTHER] IV ONE (07:50)
[2025-02-01] MEDS ORDERED: NS 0.9% IV ONE (07:50)
[2025-02-01 08:06] LABS: ALT/SGPT 33 U/L (7.0-40); CALCIUM LEVEL 8.4 MG/DL (8.3-10.6); CARBON DIOXIDE LEVEL 25 MMOL/L (20-31); CHLORIDE LEVEL 103 MMOL/L (98-107); CREATININE FOR GFR 2.10 MG/DL (0.55-1.30); GLOMERULAR FILTRATION RATE 25.0 (>45); POTASSIUM SERUM 3.4 MMOL/L (3.5-5.1); SODIUM LEVEL 142 MMOL/L (136-145)
[2025-02-01] MEDS: CEFEPIME HCL 2 GM in DEXTROSE 5% (D5W) ADV/MINI-BAG 50 ML IV ONE (08:15)
[2025-02-01] MEDS: NS 0.9% IV STA (08:16)
[2025-02-01] MEDS: [UNRECOGNIZED DRUG - OTHER] IV STA (08:16)
[2025-02-01 08:18] LABS: AST/SGOT 126 U/L (<34)
[2025-02-01 08:24] LABS: MAGNESIUM LEVEL 2.1 MG/DL (1.8-2.4)
[2025-02-01 08:25] LABS: CK-MB VALUE MASS 1.3 NG/ML (<3.6)
[2025-02-01 08:26] LABS: CPK CREATINE PHOSPHOKINASE 32.0 U/L (34-145); MB/CK RELATIVE INDEX 4.06 (< OR =4)
[2025-02-01 09:18] LABS: APPEARANCE, URINE HAZY (CLEAR); BACTERIA, URINE AUTO NEGATIVE (NEGATIVE); BILIRUBIN, URINE AUTO NEGATIVE (NEGATIVE); BLOOD, URINE BLOOD NEGATIVE (NEGATIVE); GLUCOSE, URINE (UA) AUTO 1+ mg/dL (NEGATIVE); KETONE, URINE AUTO NEGATIVE (NEGATIVE); LEUKOCYTE ESTERASE, URINE AUTO NEGATIVE (NEGATIVE); NITRITE, URINE AUTO NEGATIVE (NEGATIVE); PROTEIN, URINE AUTO NEGATIVE (NEGATIVE); RBC, URINE AUTO 1 /HPF (0-3); SPECIFIC GRAVITY URINE AUTO 1.018 (1.002-1.035); SQUAMOUS EPITHELIAL CELL UR AU 1 /HPF (0-6); UROBILINOGEN, URINE AUTO 0.2 mg/dL (0.0-2.0); WBC, URINE AUTO 1 /HPF (0-3)
[2025-02-01] MEDS ORDERED: BUSP5TA PO (09:51)
[2025-02-01] MEDS ORDERED: HOME MED LIST COMPLETE! XX SCH (10:00)
[2025-02-01] MEDS ORDERED: VANCOMYCIN HCL 1,000 MG in IV FLUID PLACE HOLDER 1 EA IV SCH (11:50)
[2025-02-01] MEDS ORDERED: GLUCAGON INJ 1 MG VIAL SC PRN (12:00)
[2025-02-01] MEDS ORDERED: GLUCOSE 4 GM CHEW PO PRN (12:00)
[2025-02-01] MEDS: MIDODRINE 5 MG TAB PO SCH (12:00)
[2025-02-01 13:11] LABS: PH BODY FLUID 7.719 UNITS (NOT ESTABLISHED); SOURCE, BODY FLUID pH PLEURAL
[2025-02-01 13:25] LABS: APPEARANCE, BODY FLUID HAZY (CLEAR); PLEURAL FL COLOR YELLOW (COLORLESS); SOURCE, BODY FLUID PLEURAL
[2025-02-01 13:37] LABS: SOURCE, BODY FLUID ALBUMIN PLEURAL
[2025-02-01 13:42] LABS: SOURCE, BODY FLUID GLUCOSE PLEURAL; SOURCE, BODY FLUID TRIG PLEURAL; TRIGLYCERIDE, BODY FLUID 76 MG/DL (NOT ESTABLISHED)
[2025-02-01 13:43] LABS: LDH, BODY FLUID 156 U/L (NOT ESTABLISHED); SOURCE, BODY FLUID LDH PLEURAL; SOURCE, BODY FLUID TOT PROTEIN PLEURAL
[2025-02-01 13:44] LABS: AMYLASE, BODY FLUID 31 U/L (NOT ESTABLISHED); CHOLESTEROL, BODY FLUID 41 MG/DL (NOT ESTABLISHED); SOURCE, BODY FLUID AMYLASE PLEURAL; SOURCE, BODY FLUID CHOL PLEURAL
[2025-02-01 14:07] VITALS: BP 128/69; TEMP 95.2; O2SAT 97
[2025-02-01] MEDS: PIPERACILLIN/TAZOBACTAM SOD 3.375 GM in DEXTROSE 5% (D5W) ADV/MINI-BAG 50 ML IV SCH (14:20)
[2025-02-01] MEDS: VANCOMYCIN HCL 2,000 MG, VIAL MATE ADAPTER 1 EACH in NS 500 ML IV ONE (14:24)
[2025-02-01 15:12] VITALS: TEMP 94.5
[2025-02-01 15:53] VITALS: BP 132/68; TEMP 93.4; O2SAT 97
[2025-02-01] MEDS: DEXTROSE 50% 50 ML SYRINGE IV STA (18:32)
[2025-02-01] MEDS: DEXTROSE 50% 50 ML SYRINGE IV ONE (18:35)
[2025-02-01] MEDS ORDERED: DIGOXIN INJ 0.5 MG/2 ML AMP IV STA (18:55)
[2025-02-01 19:25] VITALS: BP 102/55; TEMP 96.1; O2SAT 100
[2025-02-01] MEDS: AMIODARONE 200 MG TAB PO ONE (19:59)
[2025-02-01] MEDS: AMIODARONE 200 MG TAB PO SCH (19:59)
[2025-02-01 20:15] LABS: ABG BASE EXCESS -1.0 (-2.0-2.0); ABG HCO3 21.0 MMOL/L (22.0-26.0); ABG O2 SATURATION 98.0 % (95.0-99.0); ABG PARTIAL PRESSURE CO2 27.8 mmHg (35.0-45.0); ABG PARTIAL PRESSURE O2 96.9 mmHg (75.0-100.0); ABG STANDARD HCO3 23.6 MMOL/L. (22.0-26.0); ABG TOTAL CO2 21.9 MMOL/L (23.0-31.0); ABG pH (ARTERIAL) 7.497 UNITS (7.350-7.450)
[2025-02-01] MEDS ORDERED: DOXYCYCLINE HYCLATE 100 MG TABLET PO SCH (21:00)
[2025-02-01] MEDS: APIXABAN 5 MG TAB PO SCH (21:29)
[2025-02-01 23:34] VITALS: BP 130/60; TEMP 98.1; O2SAT 95
[2025-02-01] MEDS: DEXTROSE 50% 50 ML SYRINGE IV PRN (23:59)
[2025-02-02] VITALS (16 sets, daily range): BP systolic 94–146; BP diastolic 57–97; PULSE 98; TEMP 98.2–100.6; O2SAT 95–100
[2025-02-02] MEDS: D5W 1,000 ML IV SCH (01:53)
[2025-02-02] MEDS ORDERED: ENOXAPARIN 100 MG/1 ML SYRINGE (J1650 PER 10MG) SC SCH (07:00)
[2025-02-02] MEDS: DEXTROSE 50% 50 ML SYRINGE IV STA ×2 (07:32→12:18)
[2025-02-02] MEDS: NITROGLYCERIN 0.4 MG SUBL TABLET SL STA ×4 (07:33→08:05)
[2025-02-02 07:49] LABS: BASO # 0.0 10^3/uL (0.0-0.2); BASO % 0.3 % (0.0-1.0); EOS # 0.0 10^3/uL (0.0-0.5); EOS % 0.3 % (0.0-3.0); LYMPH # 0.5 10^3/uL (1.5-5.0); LYMPH % 4.6 % (24.0-44.0); MONO # 0.6 10^3/uL (0.0-0.8); MONO % 4.8 % (2.0-8.0); NEUTROPHILS # 10.5 10^3/uL (1.5-8.5); NEUTROPHILS % 89.5 % (36.0-66.0); PLATELET COUNT, AUTOMATED 240 10^3/uL (150-450)
[2025-02-02] MEDS: SUCRALFATE SUSP 1GM/10ML UD PO ONE (07:56)
[2025-02-02] MEDS: PANTOPRAZOLE 40MG TAB PO ONE (07:56)
[2025-02-02] MEDS ORDERED: VANCOMYCIN HCL 750 MG, VIAL MATE ADAPTER 1 EACH in NS 250 ML IV SCH (08:00)
[2025-02-02 08:41] LABS: CK-MB VALUE MASS < 1.0 NG/ML (<3.6)
[2025-02-02 08:42] LABS: VANCOMYCIN LEVEL TROUGH 19.2 UG/ML (10.0-20.0)
[2025-02-02 08:58] LABS: ALT/SGPT 35 U/L (7.0-40); AST/SGOT 147 U/L (<34); CALCIUM LEVEL 7.9 MG/DL (8.3-10.6); CARBON DIOXIDE LEVEL 22 MMOL/L (20-31); CHLORIDE LEVEL 100 MMOL/L (98-107); CPK CREATINE PHOSPHOKINASE 39 U/L (34-145); CREATININE FOR GFR 1.90 MG/DL (0.55-1.30); GLOMERULAR FILTRATION RATE 28.2 (>45); MAGNESIUM LEVEL 1.9 MG/DL (1.8-2.4); POTASSIUM SERUM 3.5 MMOL/L (3.5-5.1); SODIUM LEVEL 138 MMOL/L (136-145)
[2025-02-02] MEDS: MORPHINE 2 MG/ML 1 ML VIAL IV ONE ×2 (09:13→12:55)
[2025-02-02] MEDS: LIDOCAINE 5% PATCH TD SCH (09:14)
[2025-02-02] MEDS: NITROGLYCERIN 0.4 MG SUBL TABLET SL ONE (09:17)
[2025-02-02] MEDS: D10W 1,000 ML IV SCH (10:00)
[2025-02-02] MEDS: PANTOPRAZOLE 40MG VIAL IV SCH (10:01)
[2025-02-02] MEDS: RANOLAZINE 500MG ER TAB PO ONE (10:01)
[2025-02-02] MEDS: VANCOMYCIN HCL 750 MG, VIAL MATE ADAPTER 1 EACH in NS 250 ML IV SCH (12:17)
[2025-02-02] MEDS: SUCRALFATE SUSP 1GM/10ML UD PO SCH (12:18)
[2025-02-02] MEDS: ACETAMINOPHEN 325 MG TAB PO ONE (12:56)
[2025-02-02] MEDS: LIDOCAINE 5% OINT 30 GM TUBE TOP SCH (14:56)
[2025-02-02] MEDS ORDERED: ACETAMINOPHEN 325 MG TAB PO PRN (16:00)
[2025-02-02] MEDS: AZITHROMYCIN 250 MG TABLET PO SCH (20:33)
[2025-02-03] VITALS (10 sets, daily range): BP systolic 102–144; BP diastolic 52–67; PULSE 87; TEMP 97–99.7; O2SAT 94–100
[2025-02-03] MEDS: NITROGLYCERIN 0.4 MG SUBL TABLET SL PRN (03:49)
[2025-02-03 06:28] LABS: BASO # 0.1 10^3/uL (0.0-0.2); BASO % 0.5 % (0.0-1.0); EOS # 0.2 10^3/uL (0.0-0.5); EOS % 1.4 % (0.0-3.0); LYMPH # 1.0 10^3/uL (1.5-5.0); LYMPH % 9.1 % (24.0-44.0); MONO # 0.9 10^3/uL (0.0-0.8); MONO % 8.3 % (2.0-8.0); NEUTROPHILS # 8.9 10^3/uL (1.5-8.5); NEUTROPHILS % 80.2 % (36.0-66.0); PLATELET COUNT, AUTOMATED 252 10^3/uL (150-450)
[2025-02-03 06:54] LABS: CALCIUM LEVEL 8.5 MG/DL (8.3-10.6); CARBON DIOXIDE LEVEL 21.0 MMOL/L (20-31); CHLORIDE LEVEL 104.0 MMOL/L (98-107); CREATININE FOR GFR 1.87 MG/DL (0.55-1.30); GLOMERULAR FILTRATION RATE 28.8 (>45); POTASSIUM SERUM 3.6 MMOL/L (3.5-5.1); SODIUM LEVEL 140.0 MMOL/L (136-145)
[2025-02-03] MEDS ORDERED: E-Z-PAQUE 96% w/w SUSP 176 GM BTL As Ordered ONE (08:16)
[2025-02-03] MEDS ORDERED: E-Z-HD 98% w/w 340 GM SUSP BTL As Ordered ONE (08:16)
[2025-02-03 13:49] LABS: VANCOMYCIN LEVEL TROUGH 17.4 UG/ML (10.0-20.0)
[2025-02-03] MEDS: ONDANSETRON 4MG 2ML VIAL IV ONE (15:58)
[2025-02-04 04:03] VITALS: BP 112/62; TEMP 97.1; O2SAT 96
[2025-02-04 05:59] LABS: BASO # 0.1 10^3/uL (0.0-0.2); BASO % 0.5 % (0.0-1.0); EOS # 0.2 10^3/uL (0.0-0.5); EOS % 2.6 % (0.0-3.0); LYMPH # 1.0 10^3/uL (1.5-5.0); LYMPH % 10.6 % (24.0-44.0); MONO # 0.8 10^3/uL (0.0-0.8); MONO % 8.5 % (2.0-8.0); NEUTROPHILS # 7.0 10^3/uL (1.5-8.5); NEUTROPHILS % 77.4 % (36.0-66.0); PLATELET COUNT, AUTOMATED 218 10^3/uL (150-450)
[2025-02-04 06:34] LABS: CALCIUM LEVEL 8.5 MG/DL (8.3-10.6); CARBON DIOXIDE LEVEL 22.0 MMOL/L (20-31); CHLORIDE LEVEL 104.0 MMOL/L (98-107); CREATININE FOR GFR 1.62 MG/DL (0.55-1.30); GLOMERULAR FILTRATION RATE 34.2 (>45); POTASSIUM SERUM 2.9 MMOL/L (3.5-5.1); SODIUM LEVEL 141.0 MMOL/L (136-145)
[2025-02-04 07:36] LABS: MAGNESIUM LEVEL 1.9 MG/DL (1.8-2.4)
[2025-02-04] MEDS: MAG SULF 1GM/100ML (MAG RUN) 1 GM in IV 1 EA IV ONE (08:00)
[2025-02-04 08:23] VITALS: BP 157/77; TEMP 97.1; O2SAT 98
[2025-02-04] MEDS: LIDOCAINE 5% PATCH TD SCH (09:00)
[2025-02-04] MEDS: KCL 10MEQ/100ML SWI (KRUN) 10 MEQ in IV 1 EA IV SCH (09:15)
[2025-02-04] MEDS: POTASSIUM CHLORIDE 10MEQ SR TABLET PO SCH (09:17)
[2025-02-04 12:00] VITALS: BP 141/67; TEMP 97; O2SAT 97
[2025-02-04 12:01] LABS: IONIZED CALCIUM 4.5 MG/DL (4.5-5.3)
[2025-02-04 12:32] LABS: MAGNESIUM LEVEL 2.2 MG/DL (1.8-2.4); POTASSIUM SERUM 3.3 MMOL/L (3.5-5.1)
[2025-02-04] MEDS: PERCOCET 5MG/325MG TAB PO PRN (13:58)
[2025-02-04] MEDS: POTASSIUM CHLORIDE 10MEQ SR TABLET PO ONE (14:02)
[2025-02-04] MEDS: ANALGESIC BALM CRM 3 OZ TOP SCH (17:00)
[2025-02-04 18:13] LABS: IONIZED CALCIUM 4.6 MG/DL (4.5-5.3)
[2025-02-04 18:45] LABS: MAGNESIUM LEVEL 2.0 MG/DL (1.8-2.4); POTASSIUM SERUM 4.0 MMOL/L (3.5-5.1)
[2025-02-04 19:33] VITALS: BP 103/58; TEMP 97; O2SAT 100
[2025-02-04 22:51] LABS: MYCOPLASMA PNEUMONIAE IGG <= 0.90 (<=0.90); MYCOPLASMA PNEUMONIAE IGM 154.0 U/mL (<770)
[2025-02-04 23:29] VITALS: BP 117/69; TEMP 97.2; O2SAT 99
[2025-02-05 00:24] LABS: IONIZED CALCIUM 4.6 MG/DL (4.5-5.3)
[2025-02-05 00:51] LABS: MAGNESIUM LEVEL 2.0 MG/DL (1.8-2.4); POTASSIUM SERUM 4.1 MMOL/L (3.5-5.1)
[2025-02-05 04:07] VITALS: BP 132/70; TEMP 97; O2SAT 99
[2025-02-05 06:31] LABS: BASO # 0.0 10^3/uL (0.0-0.2); BASO % 0.2 % (0.0-1.0); EOS # 0.2 10^3/uL (0.0-0.5); EOS % 2.4 % (0.0-3.0); LYMPH # 0.7 10^3/uL (1.5-5.0); LYMPH % 8.3 % (24.0-44.0); MONO # 0.8 10^3/uL (0.0-0.8); MONO % 9.3 % (2.0-8.0); NEUTROPHILS # 6.6 10^3/uL (1.5-8.5); NEUTROPHILS % 79.1 % (36.0-66.0); PLATELET COUNT, AUTOMATED 254 10^3/uL (150-450)
[2025-02-05 07:03] LABS: CALCIUM LEVEL 8.6 MG/DL (8.3-10.6); CARBON DIOXIDE LEVEL 24.0 MMOL/L (20-31); CHLORIDE LEVEL 104.0 MMOL/L (98-107); CREATININE FOR GFR 1.97 MG/DL (0.55-1.30); GLOMERULAR FILTRATION RATE 27.0 (>45); POTASSIUM SERUM 4.5 MMOL/L (3.5-5.1); SODIUM LEVEL 140.0 MMOL/L (136-145)
[2025-02-05 07:41] VITALS: BP 145/74; TEMP 98; O2SAT 98
[2025-02-05 15:56] VITALS: BP 150/70; TEMP 97.8; O2SAT 98
[2025-02-05 16:15] LABS: INR 1.21
[2025-02-05 19:36] VITALS: BP 120/59; TEMP 97.2; O2SAT 99
[2025-02-05] MEDS: APIXABAN 5 MG TAB PO SCH (20:17)
[2025-02-06 03:52] VITALS: BP 135/72; TEMP 97; O2SAT 97
[2025-02-06 07:03] LABS: BASO # 0.0 10^3/uL (0.0-0.2); BASO % 0.4 % (0.0-1.0); EOS # 0.2 10^3/uL (0.0-0.5); EOS % 1.8 % (0.0-3.0); LYMPH # 1.1 10^3/uL (1.5-5.0); LYMPH % 10.8 % (24.0-44.0); MONO # 0.8 10^3/uL (0.0-0.8); MONO % 7.9 % (2.0-8.0); NEUTROPHILS # 7.8 10^3/uL (1.5-8.5); NEUTROPHILS % 78.8 % (36.0-66.0); PLATELET COUNT, AUTOMATED 268 10^3/uL (150-450)
[2025-02-06 07:28] LABS: CALCIUM LEVEL 8.7 MG/DL (8.3-10.6); CARBON DIOXIDE LEVEL 20.0 MMOL/L (20-31); CHLORIDE LEVEL 105.0 MMOL/L (98-107); CREATININE FOR GFR 1.78 MG/DL (0.55-1.30); GLOMERULAR FILTRATION RATE 30.5 (>45); POTASSIUM SERUM 4.0 MMOL/L (3.5-5.1); SODIUM LEVEL 138.0 MMOL/L (136-145)
[2025-02-06 07:55] VITALS: BP 147/94; TEMP 97.6; O2SAT 96
[2025-02-06] MEDS: MIDODRINE 5 MG TAB PO SCH (08:00)
[2025-02-06 11:43] VITALS: BP 151/70
[2025-02-06] MEDS: INSULIN LISPRO (NovoLOG) PER UNIT SC SCH (12:36)
[2025-02-06 16:00] VITALS: BP 136/64; TEMP 98.6; O2SAT 96
[2025-02-06 19:38] VITALS: BP 136/72; TEMP 97.2; O2SAT 98
[2025-02-07 03:12] VITALS: BP 149/82; TEMP 97; O2SAT 99
[2025-02-07] MEDS: ONDANSETRON 4MG 2ML VIAL IV PRN (03:50)
[2025-02-07 07:42] VITALS: BP 131/76; TEMP 97.3; O2SAT 99
[2025-02-07 08:08] LABS: BASO # 0.0 10^3/uL (0.0-0.2); BASO % 0.4 % (0.0-1.0); EOS # 0.1 10^3/uL (0.0-0.5); EOS % 1.3 % (0.0-3.0); LYMPH # 1.2 10^3/uL (1.5-5.0); LYMPH % 11.3 % (24.0-44.0); MONO # 0.8 10^3/uL (0.0-0.8); MONO % 7.4 % (2.0-8.0); NEUTROPHILS # 8.2 10^3/uL (1.5-8.5); NEUTROPHILS % 79.1 % (36.0-66.0); PLATELET COUNT, AUTOMATED 250 10^3/uL (150-450)
[2025-02-07 08:33] LABS: CALCIUM LEVEL 8.2 MG/DL (8.3-10.6); CARBON DIOXIDE LEVEL 21.0 MMOL/L (20-31); CHLORIDE LEVEL 102.0 MMOL/L (98-107); CREATININE FOR GFR 1.86 MG/DL (0.55-1.30); GLOMERULAR FILTRATION RATE 29.0 (>45); POTASSIUM SERUM 3.7 MMOL/L (3.5-5.1); SODIUM LEVEL 135.0 MMOL/L (136-145)
[2025-02-07] MEDS: busPIRone 5 MG TAB PO PRN ×2 (08:59→20:58)
[2025-02-07] MEDS: FUROSEMIDE 100 MG/10 ML VIAL IV ONE (11:02)
[2025-02-07 15:56] VITALS: BP 124/78; TEMP 98; O2SAT 99
[2025-02-07 20:32] VITALS: BP 103/62; TEMP 97.9; O2SAT 99
[2025-02-08 03:51] VITALS: BP 133/65; TEMP 97.9; O2SAT 99
[2025-02-08 06:14] LABS: BASO # 0.0 10^3/uL (0.0-0.2); BASO % 0.4 % (0.0-1.0); EOS # 0.1 10^3/uL (0.0-0.5); EOS % 0.9 % (0.0-3.0); LYMPH # 0.8 10^3/uL (1.5-5.0); LYMPH % 8.0 % (24.0-44.0); MONO # 0.7 10^3/uL (0.0-0.8); MONO % 7.4 % (2.0-8.0); NEUTROPHILS # 8.2 10^3/uL (1.5-8.5); NEUTROPHILS % 82.7 % (36.0-66.0); PLATELET COUNT, AUTOMATED 231 10^3/uL (150-450)
[2025-02-08 06:41] LABS: CALCIUM LEVEL 8.6 MG/DL (8.3-10.6); CARBON DIOXIDE LEVEL 22.0 MMOL/L (20-31); CHLORIDE LEVEL 103.0 MMOL/L (98-107); CREATININE FOR GFR 2.01 MG/DL (0.55-1.30); GLOMERULAR FILTRATION RATE 26.4 (>45); POTASSIUM SERUM 3.5 MMOL/L (3.5-5.1); SODIUM LEVEL 137.0 MMOL/L (136-145)
[2025-02-08 08:37] VITALS: BP 158/82; TEMP 97; O2SAT 99
[2025-02-08] MEDS: TORSEMIDE 50 MG PER 1/2 TAB PO SCH (09:00)
[2025-02-08 11:45] VITALS: BP 109/68
[2025-02-08] MEDS: MIDODRINE 5 MG TAB PO SCH (13:23)
[2025-02-08 15:46] VITALS: BP 153/72; TEMP 97.4; O2SAT 97
[2025-02-08 19:54] VITALS: BP 115/64; TEMP 97.7; O2SAT 97
[2025-02-08] MEDS: VITAMIN A & D OINTMENT 42.5GM TOP SCH (20:48)
[2025-02-09 03:46] VITALS: BP 143/75; TEMP 97.4; O2SAT 96
[2025-02-09 07:47] VITALS: BP 134/64; TEMP 98.2; O2SAT 97
[2025-02-09 15:33] VITALS: BP 129/73; TEMP 98.5; O2SAT 98
[2025-02-09 17:06] LABS: AMIODARONE (CORDARONE) 1743 ng/mL (1000-2500)
[2025-02-09 20:00] VITALS: BP 142/74; TEMP 97.6; O2SAT 99
[2025-02-10 00:36] VITALS: BP 114/65; TEMP 97; O2SAT 96
[2025-02-10 04:22] VITALS: BP 115/64; TEMP 96.8; O2SAT 97
[2025-02-10 12:00] VITALS: BP 130/75; TEMP 97.2; O2SAT 95
[2025-02-11 04:16] VITALS: BP 130/75; TEMP 97.9; O2SAT 95
[2025-02-12 04:21] VITALS: BP 131/74; TEMP 97; O2SAT 97
[2025-02-12] MEDS: GABAPENTIN 100 MG CAP PO ONE (04:29)
[2025-02-12 08:34] VITALS: BP 161/78
[2025-02-13 03:36] VITALS: BP 135/75; TEMP 97; O2SAT 99
[2025-02-13 07:48] VITALS: BP 128/65; TEMP 97; O2SAT 99
[2025-02-14 04:09] VITALS: BP 138/69; TEMP 97; O2SAT 98
[2025-02-14 08:07] VITALS: BP 125/58; TEMP 97; O2SAT 99
[2025-02-14 14:42] VITALS: BP 126/62
[2025-02-15 04:00] VITALS: BP 113/68; TEMP 97; O2SAT 98
[2025-02-15] MEDS: PROMETHAZINE 25MG/ML 1ML VIAL IV ONE (04:30)
[2025-02-16 06:40] VITALS: BP 145/71; TEMP 96.6; O2SAT 97
[2025-02-16] MEDS: NYSTATIN 100,000 UNITS/GM TOPICAL PWD 15 GM TOP SCH (11:13)
[2025-02-16] MEDS: RAMELTEON 8 MG TAB PO PRN (20:40)
[2025-02-17 04:43] VITALS: BP 113/64; TEMP 96.8; O2SAT 98
[2025-02-17 17:50] LABS: PLATELET COUNT, AUTOMATED 307 10^3/uL (150-450)
[2025-02-17 18:04] LABS: ALT/SGPT 28.0 U/L (7.0-40); AST/SGOT 134.0 U/L (<34); CALCIUM LEVEL 8.7 MG/DL (8.3-10.6); CARBON DIOXIDE LEVEL 19.0 MMOL/L (20-31); CHLORIDE LEVEL 106.0 MMOL/L (98-107); CREATININE FOR GFR 5.84 MG/DL (0.55-1.30); GLOMERULAR FILTRATION RATE 7.3 (>45); POTASSIUM SERUM 3.4 MMOL/L (3.5-5.1); SODIUM LEVEL 145.0 MMOL/L (136-145)
[2025-02-17 18:11] LABS: KETONE, URINE AUTO RFX NEGATIVE (NEGATIVE); LEUKOCYTE ESTERASE UR AUTO RFX NEGATIVE (NEGATIVE); MUCUS, URINE RFX SMALL (NEGATIVE); NITRITE, URINE AUTO RFX NEGATIVE (NEGATIVE); RBC, URINE AUTO RFX 2 /HPF (0-3); SQUAM EPITHELIAL CELL UR AURFX 0 /HPF (0-6); WBC, URINE AUTO RFX 2 /HPF (0-3)
[2025-02-17 20:00] VITALS: BP 110/62; TEMP 97.2; O2SAT 98
[2025-02-17 20:09] LABS: VENOUS BASE EXCESS -7.2 (-2.0-2.0); VENOUS HCO3 18.4 MMOL/L (23.0-27.0); VENOUS O2 SATURATION 80.4 % (60.0-80.0); VENOUS PARTIAL PRESSURE CO2 37.2 mmHg (38.0-50.0); VENOUS PARTIAL PRESSURE O2 48.9 mmHg (30.0-50.0); VENOUS PH 7.311 UNITS (7.330-7.430); VENOUS STANDARD HCO3 18.3 MMOL/L; VENOUS TOTAL CO2 19.5 MMOL/L (24.0-28.0)
[2025-02-17 21:00] LABS: INR 2.45
[2025-02-17 21:16] LABS: C REACTIVE PROTEIN QUANTITATIV 1.72 MG/DL (<1.0)
[2025-02-17] MEDS: NS (Normal Saline) 0.9% 1,000 ML IV SCH (21:31)
[2025-02-18] VITALS: BP 154/73; TEMP 97; O2SAT 97
[2025-02-18 04:00] VITALS: BP 130/66; TEMP 96.8; O2SAT 97
[2025-02-18 05:22] LABS: PLATELET COUNT, AUTOMATED 263 10^3/uL (150-450)
[2025-02-18 05:49] LABS: ALT/SGPT 30.0 U/L (7.0-40); AST/SGOT 142.0 U/L (<34); CALCIUM LEVEL 8.6 MG/DL (8.3-10.6); CARBON DIOXIDE LEVEL 17.0 MMOL/L (20-31); CHLORIDE LEVEL 106.0 MMOL/L (98-107); CREATININE FOR GFR 5.91 MG/DL (0.55-1.30); GLOMERULAR FILTRATION RATE 7.2 (>45); MAGNESIUM LEVEL 2.0 MG/DL (1.8-2.4); PHOSPHORUS LEVEL 4.4 MG/DL (2.4-5.1); POTASSIUM SERUM 3.6 MMOL/L (3.5-5.1); SODIUM LEVEL 143.0 MMOL/L (136-145)
[2025-02-18] MEDS: NS 500 ML IV ONE (06:38)
[2025-02-18 08:00] VITALS: BP 133/67; TEMP 97.5; O2SAT 97
[2025-02-18] MEDS: FUROSEMIDE injection 100 MG, VIAL 2 BAG 13MM ADAPTER 1 EACH in NS 100 ML IV SCH (11:22)
[2025-02-18 12:08] VITALS: BP 122/61; TEMP 97.7; O2SAT 99
[2025-02-18 15:52] VITALS: BP 125/72; TEMP 97.1; O2SAT 99
[2025-02-18] MEDS: INSULIN LISPRO (NovoLOG) PER UNIT SC SCH (20:02)
[2025-02-18 20:09] VITALS: BP 140/62; TEMP 97.2; O2SAT 98
[2025-02-19 00:09] VITALS: BP 126/63; TEMP 97; O2SAT 98
[2025-02-19 04:04] VITALS: BP 107/53; TEMP 97; O2SAT 100
[2025-02-19 07:38] VITALS: BP 114/58; TEMP 97.6; O2SAT 96
[2025-02-19 07:41] LABS: CALCIUM LEVEL 8.4 MG/DL (8.3-10.6); CARBON DIOXIDE LEVEL 18.0 MMOL/L (20-31); CHLORIDE LEVEL 108.0 MMOL/L (98-107); CREATININE FOR GFR 6.3 MG/DL (0.55-1.30); GLOMERULAR FILTRATION RATE 6.7 (>45); PHOSPHORUS LEVEL 4.4 MG/DL (2.4-5.1); POTASSIUM SERUM 3.5 MMOL/L (3.5-5.1); SODIUM LEVEL 145.0 MMOL/L (136-145)
[2025-02-19] MEDS: OCTREOTIDE ACETATE 100 MCG/ML VIAL **SC ADMINISTRATION ONLY SC SCH (10:04)
[2025-02-19 11:29] VITALS: BP 122/60; TEMP 97.4; O2SAT 100
[2025-02-19 15:56] VITALS: BP 139/89; TEMP 98; O2SAT 100
[2025-02-19 19:28] VITALS: BP 103/53; TEMP 98; O2SAT 98
[2025-02-20] VITALS (7 sets, daily range): BP systolic 108–133; BP diastolic 56–67; TEMP 97.2–98; O2SAT 96–99
[2025-02-20 06:48] LABS: CALCIUM LEVEL 9.1 MG/DL (8.3-10.6); CARBON DIOXIDE LEVEL 14.0 MMOL/L (20-31); CHLORIDE LEVEL 109.0 MMOL/L (98-107); CREATININE FOR GFR 6.93 MG/DL (0.55-1.30); GLOMERULAR FILTRATION RATE 6.0 (>45); PHOSPHORUS LEVEL 5.1 MG/DL (2.4-5.1); POTASSIUM SERUM 3.7 MMOL/L (3.5-5.1); SODIUM LEVEL 146.0 MMOL/L (136-145)
[2025-02-21 03:14] VITALS: BP 133/63; TEMP 97.5; O2SAT 95
[2025-02-21 06:23] LABS: CALCIUM LEVEL 8.8 MG/DL (8.3-10.6); CARBON DIOXIDE LEVEL 14.0 MMOL/L (20-31); CHLORIDE LEVEL 110.0 MMOL/L (98-107); CREATININE FOR GFR 7.81 MG/DL (0.55-1.30); GLOMERULAR FILTRATION RATE 5.2 (>45); PHOSPHORUS LEVEL 5.5 MG/DL (2.4-5.1); POTASSIUM SERUM 4.0 MMOL/L (3.5-5.1); SODIUM LEVEL 149.0 MMOL/L (136-145)
[2025-02-21 07:38] VITALS: BP 99/53; TEMP 97; O2SAT 89
[2025-02-21 12:00] VITALS: BP 115/55
[2025-02-21 12:07] VITALS: BP 115/55; TEMP 97.3; O2SAT 96
[2025-02-21] MEDS ORDERED: MORP1SOL4 PO (13:32)
[2025-02-21] MEDS ORDERED: ATIV1TAB10 PO (13:32)
== END 2025-02-21 15:30 | disposition hospice, home (50) | DRG 871 ==
LOC: M ED 06:12 → M ED INP 09:40 → M PCU 13:40 → M MSPAV 02-10 00:30 → M PCU 02-18 11:58
PROVIDERS: ADMIT General Practice; ATTEND Student in an Organized Health Care Education/Training Program
PROC: 0W9B3ZZ Drainage of Left Pleural Cavity, Percutaneous Approach (ICD-10-PCS; principal; 2025-02-01 14:00)
DX: A41.9 Sepsis, unspecified organism (principal); I50.33 Acute on chronic diastolic (congestive) heart failure; J18.9 Pneumonia, unspecified organism; K65.2 Spontaneous bacterial peritonitis; J96.01 Acute respiratory failure with hypoxia; G93.41 Metabolic encephalopathy; K76.7 Hepatorenal syndrome; I48.92 Unspecified atrial flutter; I13.0 Hypertensive heart and chronic kidney disease with heart failure and stage 1 through stage 4 chronic kidney disease, or unspecified chronic kidney disease; E87.20 Acidosis, unspecified; N17.9 Acute kidney failure, unspecified; J98.11 Atelectasis; R18.8 Other ascites; E46 Unspecified protein-calorie malnutrition; J90 Pleural effusion, not elsewhere classified; J44.0 Chronic obstructive pulmonary disease with (acute) lower respiratory infection; I48.20 Chronic atrial fibrillation, unspecified; E11.649 Type 2 diabetes mellitus with hypoglycemia without coma; Z66 Do not resuscitate; I48.91 Unspecified atrial fibrillation; M10.9 Gout, unspecified; G47.33 Obstructive sleep apnea (adult) (pediatric); K75.81 Nonalcoholic steatohepatitis (NASH); D50.9 Iron deficiency anemia, unspecified; E11.42 Type 2 diabetes mellitus with diabetic polyneuropathy; E11.3299 Type 2 diabetes mellitus with mild nonproliferative diabetic retinopathy without macular edema, unspecified eye; E78.5 Hyperlipidemia, unspecified; G89.29 Other chronic pain; R68.0 Hypothermia, not associated with low environmental temperature; M54.9 Dorsalgia, unspecified; F32.A Depression, unspecified; F41.9 Anxiety disorder, unspecified; G47.00 Insomnia, unspecified; E04.2 Nontoxic multinodular goiter; E11.22 Type 2 diabetes mellitus with diabetic chronic kidney disease; K74.60 Unspecified cirrhosis of liver; L40.9 Psoriasis, unspecified; E87.6 Hypokalemia; E83.42 Hypomagnesemia; R16.0 Hepatomegaly, not elsewhere classified; I95.89 Other hypotension; R07.89 Other chest pain; N18.32 Chronic kidney disease, stage 3b; R26.89 Other abnormalities of gait and mobility; Y95 Nosocomial condition; R63.0 Anorexia; R63.4 Abnormal weight loss; I44.0 Atrioventricular block, first degree; L89.152 Pressure ulcer of sacral region, stage 2; L89.222 Pressure ulcer of left hip, stage 2; Z74.1 Need for assistance with personal care; Z79.01 Long term (current) use of anticoagulants; Z90.49 Acquired absence of other specified parts of digestive tract; Z98.84 Bariatric surgery status; Z79.899 Other long term (current) drug therapy; Z88.5 Allergy status to narcotic agent; Z88.8 Allergy status to other drugs, medicaments and biological substances; Z87.891 Personal history of nicotine dependence